=== PATIENT | male | born 1940 | race Hispanic/Latino ===

== ENCOUNTER 2016-08-29 19:41 | Inpatient (IN) | payer MEDICARE ==
--- NOTE | 2016-08-29 19:56 | ED PDOC ---
"Arrival/HPI - General Time Seen by Provider: 08/29/16 19:43 Historian: Patient, Family - History of Present Illness Narrative History of Present Illness (Text): 08/29/16 19:45 A 76 year old male, with past medical history including CVA with residual left sided weakness, skull fracture, and bypass surgery , who is brought into the emergency department by EMS for complaints of generalized weakness. Patients family who is at bedside states patient fell earlier today hitting his elbow on a dresser. Patient did not hit head or lose consciousness. Patient notes shortness of breath, which has worsening recently. Patient's family states he has vision changes, for which he is seeing an programs assistant. According to the family, the patient has not been eating or drinking fluids well. Patient and family deny nausea, vomiting, diarrhea, cough, bloody stools, or any other complaints at this time. Patient and family is not sure when patient last had a tetanus shot. PMD: Dr. Maldonado Time/Duration: > week (2 weeks) Symptom Onset: Gradual Activities at Onset: Rest Context: Home Past Medical History - Provider Review Nursing Documentation Reviewed: Yes Family/Social History - Physician Review Nursing Documentation Reviewed: Yes Family/Social History: No Known Family HX Allergies/Home Meds Allergies/Adverse Reactions: Allergies No Known Allergies Allergy (Unverified 08/29/16 19:59) Review of Systems - Physician Review All systems were reviewed & negative as marked: Yes - Review of Systems Constitutional: Fatigue. absent: Fevers Eyes: Vision Changes Respiratory: SOB Cardiovascular: absent: Chest Pain Gastrointestinal: Appetite Changes. absent: Abdominal Pain, Vomiting Neurological: absent: Dizziness Physical Exam Vital Signs Reviewed: Yes Vital Signs Temp Pulse Resp BP Pulse Ox 08/29/16 21:37 67 17 98 08/29/16 19:41 99.0 F 68 18 134/79 97 - Systems Exam Head: Present: Atraumatic, Normocephalic Pupils: Present: PERRL Extroacular Muscles: Present: EOMI Conjunctiva: Present: Normal Mouth: Present: Moist Mucous Membranes Neck: Present: Normal Range of Motion Respiratory/Chest: Present: Clear to Auscultation, Good Air Exchange. No: Respiratory Distress, Accessory Muscle Use Cardiovascular: Present: Regular Rate and Rhythm, Normal S1, S2. No: Murmurs Abdomen: Present: Normal Bowel Sounds. No: Tenderness, Distention, Peritoneal Signs Upper Extremity: Present: Normal ROM, Other (Superficial abrasion to right elbow ). No: Cyanosis, Edema Lower Extremity: No: Edema Neurological: Present: GCS=15, CN II-XII Intact, Speech Normal, Other (Chronic Left upper and lower extremity weakness) Skin: Present: Warm, Dry, Normal Color. No: Rashes Psychiatric: Present: Alert, Oriented x 3, Normal Insight, Normal Concentration Medical Decision Making ED Course and Treatment: 08/29/16 19:45 Impression: A 76 year old male with generalized weakness and a fall. Differential Diagnosis included but are not limited to: weakness r/o electrolyte imbalance; elbow abrasion r/o fracture; SOB r/o CHF exacerbation Plan: -- EKG -- Head CT -- Right elbow X-ray -- Chest X-Ray -- Labs -- Urinalysis -- Bacitracin, tDAP -- Reassess and disposition Progress Notes: EKG: Ordered, reviewed, and independently interpreted the EKG. Rate : 68 BPM Rhythm : NSR Interpretation : T wave inversion in I aVL and V6. Comparison : No previous EKG for comparison. 08/29/16 22:36 Elbow Xray - No fracture Right elbow abrasion cleaned with NS and bacitrain applied. CT Head IMPRESSION: Limited exam due to motion artifact No evidence of acute intracranial hemorrhage. No midline shift or hydrocephalus. Age-appropriate atrophy. Areas of diminished density in the periventricular and subcortical white matter bilaterally, nonspecific however likely represent chronic small vessel ischemic change. PEMA SCHAFFER | Preliminary Radiology Report COUNTY SUPERVISOR (QA) DISCREPANCY? If there is a discrepancy between the preliminary and final interpretation, please notify [facility] via [email or web address]. If you do not have access to our QA portal, call our QA team at [phone] CONFIDENTIALITY STATEMENT This report is intended only for the use of the referring physician, and only in accordance with law, If you received this in error, call [phone] Page 2 of 2 Thank you for allowing us to participate in the care of your patient. Dictated and Authenticated by: Greta Odell MD Patient's CT negative. BNP elevated. Lasix IV ordered. Case discussed with Dr. Maldonado who agrees for admission. 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 Will place on observation Telemetry. - Lab Interpretations Lab Results: 08/29/16 20:25 08/29/16 20:25 Lab Results 08/29/16 21:00: NT-Pro-B Natriuret Pep 54440 H 08/29/16 20:25: Sodium 136, Chloride 103, Potassium 4.8, Carbon Dioxide 22, Anion Gap 16, BUN 27 H, Creatinine 1.4, Est GFR ( Amer) 60, Est GFR (Non- Af Amer) 49, Random Glucose 158 H, Calcium 9.3, Phosphorus 3.6, Magnesium 1.8, Total Bilirubin 1.6 H, AST 23, ALT 32, Alkaline Phosphatase 154 H, Lactate Dehydrogenase 446, Total Creatine Kinase 45, Troponin I 0.05, Total Protein 7.2 , Albumin 3.8, Globulin 3.5, Albumin/Globulin Ratio 1.1 08/29/16 20:25: pO2 25 L, VBG pH 7.29 L, VBG pCO2 49.0, VBG HCO3 23.6, VBG Total CO2 25.1, VBG O2 Sat (Calc) 36.6 L, VBG Base Excess -3.6 L, VBG Potassium 5.2, Sodium 138.0, Chloride 101.0, Glucose 172 H, Lactate 2.5 H, FiO2 21.0, Venous Blood Potassium 5.2 08/29/16 20:25: PT 13.9 H, INR 1.29 H, APTT 31.5 H 08/29/16 20:25: WBC 7.8, RBC 5.21, Hgb 15.8, Hct 46.4, MCV 89.1, MCH 30.3, MCHC 34.1, RDW 17.9 H, Plt Count 187, MPV 11.0, Gran % 81.0 H, Lymph % (Auto) 9.5 L, Cameron % (Auto) 8.4 H, Eos % (Auto) 0.8 L, Baso % (Auto) 0.3, Gran # 6.35, Lymph # 0.7 L, Cameron # 0.7 H, Eos # 0.1, Baso # 0.02 I have reviewed the lab results: Yes Interpretation: Abnormal lab values - RAD Interpretation Radiology Orders: 08/29/16 19:59 CHEST PORTABLE [RAD] Stat 08/29/16 20:02 HEAD W/O CONTRAST [CT] Stat ELBOW RIGHT 3 VIEWS ROUTINE [RAD] Stat Phosphoric Acid Operator: ED Physician, Radiologist - Medication Orders Current Medication Orders: Furosemide (Lasix) 40 mg IVP STAT STA Stop: 08/29/16 22:35 Discontinued Medications Bacitracin (Bacitracin) 1 ea TOP ONCE ONE Stop: 08/29/16 20:02 Last Admin: 08/29/16 20:25 Dose: 1 ea Tetanus/Reduced Diphtheria/Acell Pertussis (Boostrix Vaccine Inj) 0.5 ml IM .ONCE ONE Stop: 08/29/16 20:02 Last Admin: 08/29/16 20:25 Dose: 0.5 ml - Scribe Statement The provider has reviewed the documentation as recorded by the Scribe Dolores joaquin under [place]a Rey Provider Scribe Attestation: All medical record entries made by the Scribe were at my direction and personally dictated by me. I have reviewed the chart and agree that the record accurately reflects my personal performance of the history, physical exam, medical decision making, and the department course for this patient. I have also personally directed, reviewed, and agree with the discharge instructions and disposition. Disposition/Present on Arrival - Present on Arrival Any Indicators Present on Arrival: No - Disposition Have Diagnosis and Disposition been Completed?: Yes Diagnosis: CHF (congestive heart failure), Elbow abrasion, Weakness Disposition: HOSPITALIZED Disposition Time: 22:39 Patient Plan: Observation Patient Problems: Current Active Problems Problem Status Onset CHF (congestive heart failure) Acute Elbow abrasion Acute Weakness Acute Condition: GUARDED Discharge Instructions (ExitCare): Heart Failure (ED), Weakness (ED) Referrals: Morgan Maldonado JD, MD [Primary Care Provider] - Follow up with primary"
[2016-08-29] MEDS ORDERED: TDAP Vaccine 0.5 mL Syr IM ONE (20:01)
[2016-08-29] MEDS ORDERED: Bacitracin 500 Units/gm Oint Foilpak UD TOP ONE (20:01)
[2016-08-29 20:37] LABS: BASO # 0.02 K/mm3 (0.0-2.0); BASO % 0.3 % (0.0-3.0); EOS # 0.1 (0.0-0.7); EOS % 0.8 % (1.5-5.0); GRAN # 6.35 (1.4-6.5); HEMOGLOBIN 15.8 gm/dL (14.0-18.0); LYMPH # 0.7 (1.2-3.4); LYMPH % 9.5 % (22.0-35.0); MEAN CELL VOLUME 89.1 fL (80.0-105.0); MEAN CORPUSCULAR HEMOGLOBIN 30.3 pg (25.0-35.0); MEAN CORPUSCULAR HGB CONC 34.1 g/dl (31.0-37.0); MONO # 0.7 (0.1-0.6); MONO % 8.4 % (1.0-6.0); PLATELET COUNT 187 10^3/uL (120.0-450.0); RBC 5.21 10^6/uL (3.5-6.1); RED CELL DISTRIBUTION WIDTH 17.9 % (11.5-14.5); WHITE BLOOD COUNT 7.8 10^3/ul (4.5-11.0)
[2016-08-29 20:43] LABS: VENOUS BLOOD GAS BASE EXCESS -3.6 mmol/L (0.0-2.0); VENOUS BLOOD GAS PO2 25 mm/Hg (30-55); VENOUS BLOOD PH 7.29 (7.32-7.43)
[2016-08-29 20:48] LABS: INR 1.29 (0.93-1.08); PARTIAL THROMBOPLASTIN TIME 31.5 Seconds (23.7-30.8); PROTHROMBIN TIME 13.9 Seconds (9.9-11.8)
[2016-08-29 21:19] LABS: ALB/GLOB RATIO 1.1 (1.1-1.8); ALBUMIN 3.8 g/dL (3.0-4.8); CALCIUM 9.3 mg/dL (8.4-10.5); MAGNESIUM 1.8 mg/dL (1.7-2.2)
[2016-08-29 21:29] LABS: TROPONIN I 0.05 ng/mL
[2016-08-29] MEDS ORDERED: Sodium Chloride 0.9% 500 ML IV STA (21:31)
[2016-08-29 22:50] LABS: PH,URINE 5.5 (4.7-8.0); URINE BILIRUBIN NEGATIVE (NEGATIVE); URINE BLOOD NEGATIVE (NEGATIVE); URINE GLUCOSE (UA) NEGATIVE (NEGATIVE); URINE LEUKOCYTE ESTERASE NEGATIVE Leu/uL (NEGATIVE); URINE NITRATE NEGATIVE (NEGATIVE); URINE PROTEIN 30 mg/dL (<30 mg/dL)
[2016-08-29 22:51] LABS: URINE APPEARANCE CLEAR (CLEAR); URINE COLOR YELLOW (YELLOW)
[2016-08-29 22:54] LABS: URINE BACTERIA MANY (NEG); URINE EPITHELIAL CELLS 0 - 2 /hpf (0-5); URINE RBC 0 - 2 /hpf (0-2)
[2016-08-29 22:55] LABS: URINE AMORPHOUS SEDIMENT FEW; URINE HYALINE CAST 0 - 2 /hpf
[2016-08-30 00:15] LABS: VENOUS BLOOD GAS BASE EXCESS -5.5 mmol/L (0.0-2.0); VENOUS BLOOD GAS PO2 44 mm/Hg (30-55); VENOUS BLOOD PH 7.35 (7.32-7.43)
--- NOTE | 2016-08-30 07:27 | CT ---
PROCEDURE: CT HEAD WITHOUT CONTRAST. HISTORY: possible head injury, body weakness COMPARISON: None available. TECHNIQUE: Axial computed tomography images were obtained through the head/brain without intravenous contrast. Radiation dose: Total exam DLP = 1064 mGy-cm. This CT exam was performed using one or more of the following dose reduction techniques: Automated exposure control, adjustment of the mA and/or kV according to patient size, and/or use of iterative reconstruction technique. FINDINGS: HEMORRHAGE: No intracranial hemorrhage. BRAIN: No mass effect or edema. Old left occipital ibfarct. Atrophy. VENTRICLES: Unremarkable. No hydrocephalus. CALVARIUM: Unremarkable. PARANASAL SINUSES: Unremarkable as visualized. No significant inflammatory changes. MASTOID AIR CELLS: Unremarkable as visualized. No inflammatory changes. OTHER FINDINGS: None. IMPRESSION: No bleed..
[2016-08-30] MEDS ORDERED: Potassium Chloride 20 mEq ER Tab PO ONE (12:41)
[2016-08-30] MEDS: Potassium Chloride 20 mEq ER Tab PO SCH (12:42)
--- NOTE | 2016-08-30 12:49 | RAD ---
HISTORY: Sepsis Patient COMPARISON: No prior. FINDINGS: LUNGS: Linear scar/ atelectasis mid left lung. No pulmonary infiltrate. PLEURA: No significant pleural effusion identified, no pneumothorax apparent. CARDIOVASCULAR: Mild cardiomegaly. Sternotomy wires noted. Likely prior CABG. OSSEOUS STRUCTURES: No significant abnormalities. VISUALIZED UPPER ABDOMEN: Normal. OTHER FINDINGS: None. IMPRESSION: No active disease.
--- NOTE | 2016-08-30 12:51 | RAD ---
PROCEDURE: Radiographs of the right elbow. HISTORY: fall r/o fx COMPARISON: No prior. FINDINGS: BONES: Normal. No fracture. JOINTS: Normal. No osteoarthritis. SOFT TISSUES: Normal. JOINT EFFUSION: None. OTHER FINDINGS: None. IMPRESSION: Unremarkable radiographs of the right elbow.
--- NOTE | 2016-08-30 14:10 | HP ---
HISTORY OF PRESENT ILLNESS: The patient is a 76-year-old male admitted to the telemetry unit through the Emergency Department on 08/29/2016 after having a fall at home sustaining an abrasion to his arm s. There was no loss of consciousness, no seizure, no head trauma. CT scan of the head was negative . The patient reported increased shortness of breath and generalized weakness and is admitted for fu rther observation and management. PAST MEDICAL HISTORY: Includes coronary artery disease status post coronary artery bypass x 3 in the remote past. 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 PAST SURGICAL HISTORY: Includes BPH. CURRENT MEDICATIONS: Include Lasix 20 mg daily and K-Dur 10 mEq daily as well as metformin 500 mg tw ice daily. ALLERGIES: The patient has no known drug allergies. SOCIAL HISTORY: No history of tobacco or alcohol use. FAMILY HISTORY: Noncontributory. REVIEW OF SYSTEMS: The patient denies chest pain, reports some dyspnea on exertion, paroxysmal noctu rnal dyspnea and orthopnea with swelling of the legs. There is no jaundice, no nausea, no vomiting, no diaphoresis, no melena, no bright red blood per rectum. PHYSICAL EXAMINATION: GENERAL: The patient is a slightly cachectic male in no acute distress. VITAL SIGNS: Blood pressure 124/95, temperature 97.4, pulse 60, respiratory rate 20. HEENT: Head is normocephalic, atraumatic. Pupils equal, round, reactive to light. Extraocular move ments intact. NECK: Supple, with no thyromegaly, no carotid bruit, no adenopathy. LUNGS: Show a few bibasilar crackles. HEART: Regular rate and rhythm, grade II-III/ systolic murmur. ABDOMEN: Soft, nontender, bowel sounds are normoactive. EXTREMITIES: Show 2+ pitting edema to the calves bilaterally. NEUROLOGIC: The patient is awake and oriented x 3 without focal sensory or motor deficits. Gait is slightly ataxic. SKIN: Warm and dry. LABORATORY DATA: WBC 7.8, hemoglobin 15.8, hematocrit 46.4, sodium 136, potassium 4.8, chloride 109, CO2 of 22, BUN 27, creatinine 1.4, glucose 158. Chest x-ray shows no active disease. BNP is marked ly elevated at 35,800. Troponin is 0.05. IMPRESSION: 1. Congestive heart failure. 2. Coronary artery disease status post coronary artery bypass graft x 3. 3. Cerebrovascular accident with occipital infarct, gait ataxia and recurrent falls. 4. Type 2 diabetes mellitus, poorly controlled. 5. Degenerative joint disease. 6. Benign prostatic hypertrophy. PLAN: The patient is admitted to the telemetry unit. Will start IV Lasix. Obtain cardiology consul tation with Dr. Malave/Nahun. Regular insulin coverage low dose protocol. Physical therapy evaluatio n and social work for discharge planning. Morgan Maldonado JD, MD cc: [phone] TT: 08/30/2016 14:09:47 mn
--- NOTE | 2016-08-30 15:51 | CON ---
DATE: 08/30/2016 REASON FOR CONSULTATION: Coronary artery disease status post CABG, rule out CHF. BRIEF CLINICAL HISTORY: This is a 76-year-old male with a past medical history significant for coron margot artery bypass surgery in 2001, three vessels bypass, admitted here because after a fall. Denies any chest pain, but complained of shortness of breath recently. PAST HISTORY: Significant for diabetes, hypertension, hyperlipidemia, coronary artery disease, statu s post CABG x 3 in 2001. PAST SURGICAL HISTORY: History of BPH, history of coronary artery bypass in 2001, three vessels bypa ss -- TAYLOR to LAD, saphenous graft to RCA and left radial to obtuse marginal 1 branch of the circumfl ex. CURRENT MEDICATIONS: The patient at home was taking Lasix 20 mg, K-Dur 10 mEq, metformin 500 mg twic e daily. ALLERGIES: No known drug allergy. SOCIAL HISTORY: No history of tobacco abuse, alcohol abuse. REVIEW OF SYSTEMS: As per HPI. PHYSICAL EXAMINATION: As follows: VITAL SIGNS: Temperature afebrile, heart rate 60, blood pressure 124/95. HEENT: PERRLA, intact. NECK: Supple. No carotid bruits. No thyromegaly. CHEST: Clear to auscultation. HEART: S1, S2 regular. ABDOMEN: Soft. EXTREMITIES: Clubbing and cyanosis negative. BLOOD WORKUP: As follows: WBC ____, hemoglobin ____, hematocrit of 46.4, platelet count 187. Chemi stry shows sodium 130, potassium ____, chloride of 103, carbon dioxide 22, anion gap of 16, BUN 26, c reatinine 1.4. BNP 35,800. IMPRESSION: Acute decompensated congestive heart failure, ____, congestive heart failure, probably s econdary to ischemic cardiomyopathy, history of fall, coronary artery disease, coronary artery bypass graft in 2001. Lost to followup, very poor compliance. The patient's x-ray consistent with congest chidi heart failure. Diabetes, hypertension, hyperlipidemia. RECOMMENDATION: Start Lasix q.12. Continue rest of the medication baseline. ____ DVT prophylaxis. Echo to assess LV function. Further recommendation after the echo. We will follow with you. Thank you, Dr. Maldonado, for providing the opportunity in taking care of the patient. EKG showed normal sinus, inferior wall IL, poor R-wave progression, positive anterior wall IL. We wi ll follow with you. Moise Garnica MD cc: [id number] TT: 08/30/2016 15:45:00 Confirmation # [id number] Dictation # [id number]
[2016-08-30] MEDS: Enoxaparin 30 mg Syringe SC SCH (17:23)
[2016-08-30] MEDS: Insulin Reg-LOW-Coverage SC SCH ×2 (17:24→22:05)
--- NOTE | 2016-08-30 18:11 | CARD ---
APPROVED REPORT EKG Measurement Heart [id number] NM [id number] [id number] <Conclusion> Normal sinus rhythm Inferior infarct, age undetermined Anterior infarct, age undetermined ST & T wave abnormality, consider lateral ischemia Abnormal ECG
[2016-08-31 06:30] LABS: BASO # 0.02 K/mm3 (0.0-2.0); BASO % 0.3 % (0.0-3.0); EOS # 0.1 (0.0-0.7); EOS % 1.4 % (1.5-5.0); GRAN # 4.87 (1.4-6.5); GRAN % 76.5 % (50.0-68.0); HEMOGLOBIN 15.5 gm/dL (14.0-18.0); LYMPH # 0.9 (1.2-3.4); LYMPH % 13.3 % (22.0-35.0); MEAN CELL VOLUME 89.1 fL (80.0-105.0); MEAN CORPUSCULAR HEMOGLOBIN 30.2 pg (25.0-35.0); MEAN CORPUSCULAR HGB CONC 33.8 g/dl (31.0-37.0); MEAN PLATELET VOLUME 10.8 fl (7.0-11.0); MONO # 0.5 (0.1-0.6); MONO % 8.5 % (1.0-6.0); PLATELET COUNT 175 10^3/uL (120.0-450.0); RBC 5.14 10^6/uL (3.5-6.1); RED CELL DISTRIBUTION WIDTH 17.6 % (11.5-14.5); WHITE BLOOD COUNT 6.4 10^3/ul (4.5-11.0)
[2016-08-31 06:37] LABS: ALBUMIN 3.4 g/dL (3.0-4.8); CALCIUM 9.2 mg/dL (8.4-10.5); MAGNESIUM 1.6 mg/dL (1.7-2.2)
--- NOTE | 2016-08-31 06:37 | CP.PCM.PN ---
Subjective - Date & Time of Evaluation Date of Evaluation: 08/31/16 Time of Evaluation: 06:34 - Subjective Subjective: S:Patient was seen because he was not able to pass urine. He has been passing very little urine at a time. Bladder scan showed accumulation of 430 CC urine. Nurse had requesed if she could straight catheterize. Patient requested to have catheterization when I spoke to him . Has no other complaints. Medical record was reviewed. O: Last Vital Signs 3 Temp 97.4 F L 08/31/16 06:00 Pulse 59 L 08/31/16 06:00 Resp 20 08/31/16 06:00 BP 107/62 08/31/16 06:00 Pulse Ox 97 08/31/16 06:00 ABD: Mild suprapubic discomfort and fullness positive. A: Urinary retention. P: Straight catheterize. Objective - Vital Signs/Intake and Output Vital Signs (last 24 hours): Temp Pulse Resp BP Pulse Ox 97.4 F L 59 L 20 107/62 97 08/31/16 06:00 08/31/16 06:00 08/31/16 06:00 08/31/16 06:00 08/31/16 06:00 Intake and Output: 08/30/16 08/31/16 18:59 06:59 Intake Total 840 Output Total 1600 Balance 840 -1600 - Medications Medications: Current Medications Atorvastatin Calcium (Lipitor) 20 mg PO DIN [facility] Last Admin: 08/30/16 17:23 Dose: 20 mg Carvedilol (Coreg) 3.125 mg PO BID [facility] Last Admin: 08/30/16 17:22 Dose: 3.125 mg Clopidogrel Bisulfate (Plavix) 75 mg PO DAILY [facility] Last Admin: 08/30/16 17:23 Dose: 75 mg Enoxaparin Sodium (Lovenox) 30 mg SC DAILY [facility] PRN Reason: Protocol Last Admin: 08/30/16 17:23 Dose: 30 mg Furosemide (Lasix) 40 mg IV 0800,1400 [facility] Ibuprofen (Motrin Tab) 400 mg PO Q6H PRN PRN Reason: Pain, Mild (1-3) Insulin Human Regular (Humulin R Low) 0 units SC ACHS [facility] PRN Reason: Protocol Last Admin: 08/30/16 22:05 Dose: Not Given Metformin HCl (Glucophage) 500 mg PO BID [facility] Last Admin: 08/30/16 17:23 Dose: 500 mg Ondansetron HCl (Zofran Inj) 4 mg IVP Q4H PRN PRN Reason: Nausea/Vomiting Potassium Chloride (K-Dur 20 Meq Er Tab) 20 meq PO BRK MAURICIO Last Admin: 08/30/16 12:42 Dose: 20 meq - Labs Labs: PT 13.9 Seconds (9.9-11.8) H 08/29/16 20:25 INR 1.29 (0.93-1.08) H 08/29/16 20:25 APTT 31.5 Seconds (23.7-30.8) H 08/29/16 20:25
[2016-08-31] MEDS: Insulin Reg-LOW-Coverage SC SCH ×4 (08:00→22:25)
[2016-08-31] MEDS: Potassium Chloride 20 mEq ER Tab PO SCH (09:00)
[2016-08-31] MEDS: Enoxaparin 30 mg Syringe SC SCH (10:51)
--- NOTE | 2016-08-31 11:59 | PN ---
DATE: 08/31/2016 SUBJECTIVE: The patient is lying in bed in no acute distress. He denies chest pain or shortness of breath. OBJECTIVE: VITAL SIGNS: Blood pressure 123/71, pulse 61, temperature 97.4, respiratory rate 20. LUNGS: Show a few bibasilar crackles. HEART: Regular rate and rhythm. ABDOMEN: Soft, nontender. Bowel sounds are normoactive. EXTREMITIES: Show 1+ to 2+ bipedal edema which has decreased from previous. NEUROLOGIC: The patient is awake and oriented x 3 without focal sensory or motor deficits. SKIN: Warm and dry. LABORATORY DATA: WBC 6.4, hemoglobin 15.5, hematocrit 45.8. Sodium 138, potassium 4.3, chloride 102 , CO2 25, BUN 27, creatinine 1.4, glucose 93. BNP remains elevated at 38,200. IMPRESSION: 1. Congestive heart failure. 2. Coronary artery disease, status post coronary artery bypass graft x 3. 3. Cerebrovascular accident with occipital infarct, gait ataxia and recurrent falls. 4. Type 2 diabetes mellitus, poorly controlled. 5. Degenerative joint disease. 6. Benign prostatic hypertrophy. PLAN: Continue IV Lasix. Continue cardiology followup with Dr. Malave/Dr. Garnica. Echo is pending. Physical therapy and social work for discharge planning. Continue insulin coverage. Morgan Maldonado JD, MD cc: [id number] TT: 08/31/2016 11:58:46 Confirmation # [id number] Dictation # [id number] tn
[2016-08-31] MEDS ORDERED: Magnesium Sulfate 2 GM in Sodium Chloride 0.9% 100 ML IVPB ONE (12:08)
[2016-08-31 13:01] LABS: HDL CHOLESTEROL 29 mg/dL (29-60)
--- NOTE | 2016-08-31 13:05 | PN ---
DATE: 08/31/2016 REASON FOR CONSULTATION: Coronary artery disease, status post CABG, rule out CHF. BRIEF CLINICAL HISTORY: A 76-year-old male with a past medical history significant for coronary andrew ry disease status post CABG in 2001, 3 vessels CABG, admitted after a fall. Denies any chest pain. The patient last night was confused, climbing side rails, on 1:1 observation. PHYSICAL EXAMINATION: GENERAL: Awake and alert, but is confused. VITAL SIGNS: Temperature afebrile, heart rate 59, blood pressure 107/62. HEENT: PERRLA. Extraocular muscles intact. NECK: Supple. No carotid bruits. No thyromegaly. CHEST: Clear to auscultation. HEART: S1, S2 regular. ABDOMEN: Soft. EXTREMITIES: Clubbing and cyanosis negative. LABORATORY DATA: WBC 6.4, hemoglobin 15.5, hematocrit 45.8, platelet count 175. Chemistry shows sod ium 130, potassium 4.3, chloride 102, carbon dioxide 25, anion gap of 15, BUN 23, creatinine 1.4. BN P 38,200. TSH 2.4. Total protein 6.4, albumin 3.4, albumin/globulin ratio 1. IMPRESSION: History of coronary artery disease, coronary artery bypass graft x 3 in 2001, left inter nal mammary artery to left anterior descending, saphenous venous graft to the right coronary artery, left radial to obtuse marginal 1. Incidental finding was a bicuspid aortic valve with no significant aortic stenosis, aortic regurgitation noted in 2001 in operative report and suggested to follow up. The patient lost followup. History of old occipital infarct by CT scan, type 2 diabetes, hypertensi on, hyperlipidemia, gait disturbance, degenerative joint disease, benign prostatic hypertrophy, coron margot artery disease, coronary artery bypass graft as above, admitted with decompensated congestive he art failure, altered mental status, confused. Chest x-ray is consistent with congestive heart failur e. Diabetes, hypertension, hyperlipidemia, poor compliance with the medication. RECOMMENDATION: Continue DVT prophylaxis. Continue gentle diuretics. Echo to assess LV function. Further recommendation after the echo. Monitor heart rate, continue Coreg, low dose beta artur. C ontinue Lasix. If blood pressure will tolerate, we will add low dose of JN inhibitors. Monitor eris al function closely. Further recommendation after the echo. Thank you, Dr. Maldonado, for providing us the opportunity in taking care of the patient. Once we start adding the JN inhibitor, we will monitor renal function closely. We will repeat the l ab in the morning. Moise Garnica MD cc: [id number] TT: 08/31/2016 13:05:14 Confirmation # [id number] Dictation # [id number] tn
[2016-08-31 13:12] LABS: LDL CHOLESTEROL 93 mg/dL (0-129)
[2016-08-31] MEDS: Magnesium Oxide 400 mg Tab UD PO SCH (18:45)
--- NOTE | 2016-08-31 21:21 | CP.PCM.PN ---
Subjective - Date & Time of Evaluation Date of Evaluation: 08/31/16 Time of Evaluation: 21:18 - Subjective Subjective: Fsbs 188 mg %. Pulse ox-99% on 2L/min. BP 101/68 HR59/min RR 20/min Temp:98*F It was requested to order 1:1 watch for this patient who almost fell yesterday night, trying to get out of bed. I tried to speak to him.He is disoriented.Many times he repeats the same questions I ask him. This 76 year old white male was admitted with history of fall. Has PMH of CABG in 2001,DM II HTN,CHF, CVA with occipital infarct, HLD, BPH, DJD. Objective - Vital Signs/Intake and Output Vital Signs (last 24 hours): Temp Pulse Resp BP Pulse Ox 97.8 F 72 18 101/66 97 08/31/16 17:38 08/31/16 18:46 08/31/16 17:38 08/31/16 18:46 08/31/16 06:00 Intake and Output: 08/31/16 09/01/16 18:59 06:59 Intake Total 360 Output Total 675 Balance -315 - Medications Medications: Current Medications Atorvastatin Calcium (Lipitor) 20 mg PO DIN [facility] Last Admin: 08/31/16 18:46 Dose: 20 mg Carvedilol (Coreg) 3.125 mg PO BID [facility] Last Admin: 08/31/16 18:46 Dose: 3.125 mg Clopidogrel Bisulfate (Plavix) 75 mg PO DAILY [facility] Last Admin: 08/31/16 10:50 Dose: 75 mg Enoxaparin Sodium (Lovenox) 30 mg SC DAILY [facility] PRN Reason: Protocol Last Admin: 08/31/16 10:51 Dose: 30 mg Furosemide (Lasix) 40 mg IV 0800,1400 [facility] Last Admin: 08/31/16 13:56 Dose: 40 mg Insulin Human Regular (Humulin R Low) 0 units SC ACHS [facility] PRN Reason: Protocol Last Admin: 08/31/16 17:00 Dose: Not Given Magnesium Oxide (Mag-Ox) 400 mg PO BID [facility] Stop: 09/01/16 23:59 Last Admin: 08/31/16 18:45 Dose: 400 mg Metformin HCl (Glucophage) 500 mg PO BID [facility] Last Admin: 08/31/16 18:46 Dose: 500 mg Ondansetron HCl (Zofran Inj) 4 mg IVP Q4H PRN PRN Reason: Nausea/Vomiting Potassium Chloride (K-Dur 20 Meq Er Tab) 20 meq PO BRK [facility] Last Admin: 08/31/16 09:00 Dose: 20 meq Ramipril (Altace) 1.25 mg PO DAILY [facility] - Labs Labs: 08/31/16 06:25 08/31/16 06:13 PT 13.9 Seconds (9.9-11.8) H 08/29/16 20:25 INR 1.29 (0.93-1.08) H 08/29/16 20:25 APTT 31.5 Seconds (23.7-30.8) H 08/29/16 20:25 - Constitutional Appears: Well, No Acute Distress - Head Exam Head Exam: ATRAUMATIC, NORMAL INSPECTION, NORMOCEPHALIC - Eye Exam Eye Exam: Normal appearance - ENT Exam ENT Exam: Normal External Ear Exam - Neck Exam Neck Exam: Normal Inspection - Respiratory Exam Respiratory Exam: NORMAL BREATHING PATTERN - Cardiovascular Exam Cardiovascular Exam: absent: JVD - GI/Abdominal Exam GI & Abdominal Exam: absent: Distended - Rectal Exam Rectal Exam: Deferred - Extremities Exam Extremities Exam: Normal Inspection - Back Exam Back Exam: NORMAL INSPECTION - Neurological Exam Neurological Exam: Altered Additional comments: States that he in in hospital, this year is 1906, month is May-June. When I ask him any questions he repeats the question and asks me same. - Psychiatric Exam Psychiatric exam: Agitated - Skin Skin Exam: Normal Color Assessment and Plan - Assessment and Plan (Free Text) Assessment: Agitaiton-Intermittent. DM II. CHF. CABG in past. DJD. BPH. HTN. Hx CVA. Plan: 1:1 observation,Sitter. Continue present management.
[2016-09-01] MEDS: Insulin Reg-LOW-Coverage SC SCH ×4 (07:49→21:31)
[2016-09-01] MEDS: Potassium Chloride 20 mEq ER Tab PO SCH (07:54)
[2016-09-01 08:11] LABS: BLOOD UREA NITROGEN 27 mg/dL (7-21); CALCIUM 8.9 mg/dL (8.4-10.5); GFR AFRICAN-AMERICAN > 60; GFR NON-AFRICAN AMERICAN 54; MAGNESIUM 1.8 mg/dL (1.7-2.2)
[2016-09-01] MEDS: Enoxaparin 30 mg Syringe SC SCH (09:38)
[2016-09-01] MEDS: Magnesium Oxide 400 mg Tab UD PO SCH ×2 (09:38→17:20)
--- NOTE | 2016-09-01 11:40 | PN ---
DATE: 09/01/2016 SUBJECTIVE: The patient is lying in bed, in no acute distress. He denies chest pain or shortness of breath. OBJECTIVE: VITAL SIGNS: Blood pressure 104/57, pulse 54, temperature 97.8, respiratory rate 22. LUNGS: Clear. HEART: Regular rate and rhythm. ABDOMEN: Soft, nontender, bowel sounds are normoactive. EXTREMITIES: Without cyanosis, clubbing, or edema. NEUROLOGIC: The patient is awake and oriented x 3 without focal, sensory or motor deficits. SKIN: Warm and dry. IMPRESSION: 1. Congestive heart failure. 2. Coronary artery disease, status post coronary artery bypass graft x 3. 3. Cerebrovascular accident, history of occipital infarct with gait ataxia and recurrent falls. 4. Type 2 diabetes mellitus, poorly controlled. 5. Degenerative joint disease. 6. Benign prostatic hypertrophy. 7. 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 PLAN: Continue cardiology followup with Dr. Malave/Dr. Garnica. Physical therapy evaluation and social work for discharge planning. Continue insulin coverage. Morgan Maldonado JD, MD cc: [id number] TT: 09/01/2016 11:39:42 Confirmation # [id number] Dictation # [id number] en
--- NOTE | 2016-09-01 13:59 | PN ---
DATE: 09/01/2016 REASON FOR CONSULTATION AND FOLLOWUP: Coronary artery disease, status post CABG, rule out CHF. SUBJECTIVE: The patient denies any chest pain, shortness of breath or palpitations. The patient is 1:1 observation. PHYSICAL EXAMINATION: VITAL SIGNS: Temperature afebrile, heart rate ____, blood pressure ____/64. HEENT: PERRLA. Extraocular muscles intact. NECK: Supple. No carotid bruits. No thyromegaly. CHEST: Clear to auscultation. HEART: S1, S2 regular. ABDOMEN: Soft. EXTREMITIES: Clubbing and cyanosis negative. LABORATORY DATA: Blood workup as follows: WBC 6.4, hemoglobin , hematocrit ____, platelet coun t 175. Chemistry shows sodium 137, potassium 3.9, chloride 99, carbon dioxide 29, anion gap of 13, B UN 27, creatinine 1.3. IMPRESSION: Decompensated congestive heart failure, coronary artery disease, coronary artery bypass graft in 2001, 3 vessels, left internal mammary artery to left anterior descending, saphenous vein gr aft to right coronary artery and left radial to obtuse marginal 1. At that time, incidental finding was bicuspid aortic valve without significant aortic stenosis or aortic regurgitation, gait disturban ce, diabetes, hypertension, hyperlipidemia, possible ischemic cardiomyopathy, altered mental status, 1:1 observation, diabetes, hyperlipidemia, poor compliance with medication. RECOMMENDATION: Continue Coreg. Continue ramipril. Continue Lasix, DVT prophylaxis. Lasix was pak ged to p.o. by Dr. Maldonado today. Echo to assess LV function. Monitor heart rate. We will follow marie mariano. Thank you, Dr. Maldonado, for providing the opportunity in taking care of the patient. Will follow with you. Moise Garnica MD cc: [id number] TT: 09/01/2016 13:58:35 Confirmation # [id number] Dictation # [id number]
[2016-09-02 06:58] LABS: ALBUMIN 3.2 g/dL (3.0-4.8); ALT/SGPT 28 U/L (7-56); AST/SGOT 20 U/L (15-59); BLOOD UREA NITROGEN 28 mg/dL (7-21); GFR AFRICAN-AMERICAN > 60; GFR NON-AFRICAN AMERICAN 59
[2016-09-02 07:06] LABS: BASO # 0.01 K/mm3 (0.0-2.0); BASO % 0.1 % (0.0-3.0); EOS # 0.1 (0.0-0.7); EOS % 1.5 % (1.5-5.0); GRAN # 5.29 (1.4-6.5); GRAN % 77.7 % (50.0-68.0); HEMOGLOBIN 15.2 gm/dL (14.0-18.0); LYMPH # 0.7 (1.2-3.4); LYMPH % 10.7 % (22.0-35.0); MEAN CELL VOLUME 88.8 fL (80.0-105.0); MEAN CORPUSCULAR HEMOGLOBIN 29.5 pg (25.0-35.0); MEAN CORPUSCULAR HGB CONC 33.2 g/dl (31.0-37.0); MEAN PLATELET VOLUME 10.8 fl (7.0-11.0); MONO # 0.7 (0.1-0.6); PLATELET COUNT 179 10^3/uL (120.0-450.0); RBC 5.16 10^6/uL (3.5-6.1); RED CELL DISTRIBUTION WIDTH 17.6 % (11.5-14.5); WHITE BLOOD COUNT 6.8 10^3/ul (4.5-11.0)
[2016-09-02] MEDS: Insulin Reg-LOW-Coverage SC SCH ×4 (07:45→22:25)
[2016-09-02] MEDS: Potassium Chloride 20 mEq ER Tab PO SCH (08:01)
[2016-09-02] MEDS: Enoxaparin 30 mg Syringe SC SCH (09:21)
--- NOTE | 2016-09-02 09:33 | CP.PCM.PCO ---
Physician Communication Note - Physician Communication Note Physician Communication Note: See attached section for [facility] response. Summary - Summary of Event Summary of Event: Yeimy Stone, called at 0902, 09/02/16 Witnessed fall out of bed as per Nursing, patient attempted to stand from side of bed, ending up sliding down to ground. Nursing unable to reach bedside before event occurred. No head trauma. [facility] called. Helped onto commode by Nursing prior to arrival due to need to move bowels. Vitals: HR 58, BP 117/165, SaO2 95%, Fingerstick Glucose 135 Physical Exam: General: awake, alert, no acute distress, sitting on commode, talkative and joking HEENT: NC/AT, no echymosis/lacerations/bleeding, EOMI (tracking staff throughout room), turning head to track staff without obvious discomfort or Pulm: CTAB, no wheezses/rales/ronchi, no tachypnea, no andres cyanosis Cardio: RRR, +S1/S2 GI: non-tender, soft, normal bowel sounds, actively using bedside commode to defecate MSK: no head/back/posterior echymosis, equal muscle tone bilaterally, no gross deformities indicative of traumatic fracture on general survey Neuro: moving head and upper extremities spontaneously, no gross asymmetry of facial muscle or UE movement noted, normal speech without slurring Psych: AAOx3, making jokes, as per nursing regularly removes all clothing in room Nursing reports 1:1 that was d/c'ed yesterday as patient was less confused/ agitated. Patient has been instructed not to stand without assistance, but has attempted to do so anyway. S/p dialysis this AM as per charting. Does not appear confused (AAOx3), but is not answering when asked why he tried to stand up without assistance. No head trauma and no andres echymotic areas posteriorly on exam, no complaint of pain by patient, so no scans indicated at this time. 1 :1 resumed, continue high fall risk protocol. Called PMD's office (Dr. Maldonado) and notified of fall. Patient seen, observed, and discussed with House Physician, Dr. Keya Chisholm.
--- NOTE | 2016-09-02 11:10 | PN ---
DATE: 09/02/2016 SUBJECTIVE: The patient is lying in bed in no acute distress. He had a fall this morning with no ap parent injury. He denies chest pain or shortness of breath. OBJECTIVE: VITAL SIGNS: Blood pressure 117/65, pulse 58, temperature 97.8, respiratory rate 20. LUNGS: Clear. HEART: Regular rate and rhythm. ABDOMEN: Soft, nontender, bowel sounds are normoactive. EXTREMITIES: Without cyanosis, clubbing, or edema. NEUROLOGIC: The patient is awake and oriented x 3 without focal sensory or motor deficits. SKIN: Warm and dry. LABORATORY DATA: WBC 6.8, hemoglobin 15.2, hematocrit 45.8. Sodium 137, potassium 4.0, chloride 100 , CO2 27, BUN 28, creatinine 1.2, glucose 104. IMPRESSION: 1. Congestive heart failure. 2. Coronary artery disease status post coronary artery bypass graft x 3. 3. Cerebrovascular accident. History of occipital infarct with gait ataxia and recurrent falls. 4. Type 2 diabetes mellitus, poorly controlled. 5. Degenerative joint disease. 6. Benign prostatic hypertrophy. 7. Probable dementia, mild to moderate, mixed versus Alzheimer disease. PLAN: Continue cardiology followup with Dr. Malave/Nahun. Physical therapy evaluation and social wor k for discharge planning. The patient will probably require 24-hour supervision and [facility]. Continue insulin coverage and glucose monitoring. Morgan Maldonado JD, MD cc: [id number] TT: 09/02/2016 11:09:53 Confirmation # [id number] Dictation # [id number] mn
--- NOTE | 2016-09-02 11:33 | PN ---
DATE: 09/02/2016 REASON FOR CONSULTATION AND FOLLOWUP: Coronary artery disease, status post CABG with shortness of br eath and altered mental status. SUBJECTIVE: The patient denies any chest pain, shortness of breath, any palpitation. The patient wa s 1:1. OBJECTIVE: PHYSICAL EXAMINATION: VITAL SIGNS: Temperature afebrile, heart rate 58, blood pressure 117/65. HEENT: PERRLA. Extraocular muscles intact. NECK: Supple. No carotid bruits. No thyromegaly. CHEST: Clear to auscultation. HEART: S1, S2 regular. ABDOMEN: Soft. EXTREMITIES: Clubbing and cyanosis negative. BLOOD WORKUP: WBC is 6.8, hemoglobin 15.2, hematocrit 45.8, platelet count 179. Chemistry shows sod ium 137, potassium 4, chloride 100, carbon dioxide 27, anion gap of 14, BUN 26, creatinine 1.2. IMPRESSION: This is a 76-year-old male with past medical history significant for open heart surgery, 3-vessel bypass in 2001. Op report shows left internal mammary artery to left anterior descending, left anterior artery to left anterior descending, saphenous vein graft to the right coronary artery, left radial artery to obtuse marginal-1. At that time, incidental finding was a bicuspid aortic valv e without significant aortic stenosis regurgitation. So valve was not repaired or replaced, but with the plan to follow up monitor. The patient lost followup. The patient admitted here with gait inst ability, altered mental status, shortness of breath, decompensated congestive heart failure, was 1:1 observation, history of diabetes, hypertension, hyperlipidemia, poor compliance with the medication. RECOMMENDATION: Continue Coreg, continue ramipril, continue Lasix, continue DVT prophylaxis. Lasix was changed to p.o. Awaiting for the echo. Possible discharge planning. Thank you, Dr. Maldonado, for providing the opportunity in taking care of the patient. We will review th e echo for aortic valve progression disease, history of Alzheimer's disease. Thank you, Dr. Maldonado, for providing the opportunity in taking care of the patient. Moise Garnica MD cc:Morgan Maldonado JD, MD [phone] TT: 09/02/2016 11:33:11 Confirmation # [id number] Dictation # [id number] jn
[2016-09-03] MEDS: Insulin Reg-LOW-Coverage SC SCH ×3 (08:10→16:31)
[2016-09-03] MEDS: Potassium Chloride 20 mEq ER Tab PO SCH (09:22)
[2016-09-03] MEDS: Enoxaparin 30 mg Syringe SC SCH (09:24)
--- NOTE | 2016-09-03 11:28 | IP.NPCORE ---
Heart Failure Core Measure - Heart Failure Left Ventricular Function to be assessed after discharge: Yes JN Inhibitor Prescribed: Yes Beta-Sung Prescribed: Carvedilol Angiotensin II Receptor Sung Prescribed: No Contraindication/Reason for not providing: hypotension AnticoagulationTherapy for Atrial Fibrillation/Atrialflutter: No Contraindication/Reason for not providing: no afib, pt with chronic hemorrhagic infarct Aldosterone Antagonist Prescribed: Yes Contraindication/Reason for not providing: creatinine levels Hydralazine Nitrate Prescribed: No Contraindication/Reason for not providing: RI Implantable Cardioverter Defibrillator Therapy: No Contraindication/Reason for not providing: n/a - Follow up Will be discharged to: [facility] Follow Up Date (must be within 7 days from discharge): 09/10/16 (recommended ) Follow Up Time: 09:00
[2016-09-03] MEDS ORDERED: Albuterol-Ipratrop 3 mg / 0.5 (3 ml) UD IH PRN (12:21)
--- NOTE | 2016-09-03 17:54 | CP.PCM.CON ---
History of Present Illness - History of Present Illness History of Present Illness: NEURO CONSULT NOTE: 09/03/16 CHIEF COMPLAINT: EVALUATE FOR DEMENTIA HPI: 76 YEAR OLD MAN WITH H/O HTN, HLD, CAD S/P STENT AND CABG, ADMITTED FOR GENERALIZED WEAKNESS, GAIT DYSFUNCTION, AND DECOMPENSATED CHF. CALLED TO EVALUATE FOR DEMENTIA. HE IS ALERT AND ORIENTED TO PERSON AND PLACE BUT HAS POOR RECALL, POOR JUDGEMENT AND LOOSE ASSOCIATIONS OF WORDS. HIS THOUGHTS ARE DISORGANIZED. HE HAS BEEN NONCOMPLAINT WITH MEDICATIONS FOR HIS GENERAL MEDICAL CONDITIONS IN THE PAST. MRI OF THE BRAIN ON 06/10/16 SHOWED SCATTERED ACUTE SMALL CORTICAL INFARCTS IN THE POSTERIOR FRONTAL PARIETAL LOBES B/L, CHRONIC HEMORRHAGE IN THE LEFT MEDIAL OCCIPITAL LOBE AND LEFT FRONTAL ENCEPHALOMALACIA. ROS: 14 POINT REVIEW OF SYMPTOMS IS NEGATIVE PER HPI. ALLERGIES: NONE SOCIAL HISTORY: NO ILLICIT DRUG USE, SMOKING, OR ETOH USE. FAMILY: NON CONTRIBUTORY. MEDICATIONS: REVIEWED BY NURSE'S RECONCILIATION SHEET. PAST MEDICAL HISTORY: HTN, HLD, CAD S/P STENT AND CABG, . MRI OF THE BRAIN ON 06/10/16 SHOWED SCATTERED ACUTE SMALL CORTICAL INFARCTS IN THE POSTERIOR FRONTAL PARIETAL LOBES B/L, CHRONIC HEMORRHAGE IN THE LEFT MEDIAL OCCIPITAL LOBE AND LEFT FRONTAL ENCEPHALOMALACIA. PHYSICAL EXAM: VITAL SIGNS: REVIEWED BY THE CHART GENERAL EXAM: PATIENT SEEN IN BED, IN NO ACUTE DISTRESS MORBIDLY OBESE. HEENT: PERRLA, EOMI, NECK SUPPLE, NO JVD, NO ADENOPATHY CVS: S1, S2, RRR, NO MURMURS NOTED LUNGS: CLEAR TO AUSCULTATION, NO ADVENTITIOUS SOUNDS ABDOMEN: SOFT AND NONTENDER EXTREMITIES: NO CLUBBING OR CYANOSIS. PP 2+ B/L NEURO: PT IS ALERT AND ORIENTED TO PERSON, PLACE, AND NOT YEAR. POOR ATTENTION SPAN, SLOW THOUGHT PROCESS, RECALL TO 5 MINUTES 0/3, JUDGEMENT IS NOT INTACT SPEECH IS FLUENT WITHOUT ERRORS, CN II-XII INTACT, MOTOR EXAM: NORMAL TONE, NORMAL BULK OF MUSCLE, MOVES ALL EXTREMITIES EQUALLY, NO PRONATOR DRIFT SEEN. SENSORY EXAM: DECREASEDLIGHT TOUCH, PIN PRICK UP TO CALVES B/L, PROPRIOCEPTION , DECREASED VIBRATION AT TOES AND KNEES. DEEP TENDON REFLEXES: 2+ THROUGHOUT EXCEPT 1 AT THE KNEES AND ANKLES. COORDINATION: FINGER TO NOSE IS INTACT. HEEL TO COE IS INTACT GAIT: DEFERRED FOR NOW. LABS: REVIEWED BY THE CHART. ASSESSMENT AND PLAN: 76 YEAR OLD MAN WITH H/O HTN, HLD, CAD S/P STENT AND CABG, ADMITTED FOR GENERALIZED WEAKNESS, GAIT DYSFUNCTION, AND DECOMPENSATED CHF. CALLED TO EVALUATE FOR DEMENTIA. HE IS ALERT AND ORIENTED TO PERSON AND PLACE BUT HAS POOR RECALL, POOR JUDGEMENT AND LOOSE ASSOCIATIONS OF WORDS. HIS THOUGHTS ARE DISORGANIZED. HE HAS BEEN NONCOMPLAINT WITH MEDICATIONS FOR HIS GENERAL MEDICAL CONDITIONS IN THE PAST. MRI OF THE BRAIN ON 06/10/16 SHOWED SCATTERED ACUTE SMALL CORTICAL INFARCTS IN THE POSTERIOR FRONTAL PARIETAL LOBES B/L, CHRONIC HEMORRHAGE IN THE LEFT MEDIAL OCCIPITAL LOBE AND LEFT FRONTAL ENCEPHALOMALACIA. IMPRESSION: THIS PT EXHIBITS FEATURES OF VASCULAR DEMENTIA WITH OCCASIONAL BEHAVIOR DISTURBANCES PLAN: 1. AVOID SEDATIVE MEDICATIONS AND NIGHTTIME INTERRUPTIONS. 2. ASA 81 MG AND PLAVIX 75 MG, STATIN FOR STROKE PREVENTION 3. MONITOR ELECTROLYTES AND CORRECT ACCORDINGLY. 4. PHYSICAL THERAPY EVALUATION FOR GAIT DYSFUNCTION SECONDARY TO UNDERLYING DIABETIC PERIPHERAL NEUROPATHY AND DECONDITIONED STATE. 5. ARICEPT 10MG PO DAILY. 6. FOLLOW UP OUTPATIENT THANK YOU PLEASE RECONSULT NECESSARY. Nina PATTERSON MD Past Patient History - Infectious Disease Hx of Infectious Diseases: None - Past Social History Smoking Status: Unknown If Ever Smoked - CARDIAC Hx Cardiac Disorders: Yes (CAD s/p bypass x 3) Hx Congestive Heart Failure: Yes - NEUROLOGICAL HX Cerebrovascular Accident: Yes - HEENT Hx HEENT Problems: Yes (visual changes) - RENAL Hx Chronic Kidney Disease: No - ENDOCRINE/METABOLIC Hx Diabetes Mellitus Type 2: Yes - INTEGUMENTARY Hx Dermatological Problems: No - MUSCULOSKELETAL/RHEUMATOLOGICAL Hx Musculoskeletal Disorders: Yes Hx Arthritis: Yes Hx Falls: Yes - PSYCHIATRIC Hx Substance Use: No - SURGICAL HISTORY Hx Surgeries: Yes Hx Open Heart Surgery: Yes Meds Allergies/Adverse Reactions: Allergies Allergy/AdvReac Type Severity Reaction Status Date / Time No Known Allergies Allergy Unverified 08/29/16 19:59 - Medications Medications: Current Medications Albuterol/Ipratropium (Duoneb 3 Mg/0.5 Mg (3 Ml) Ud) 3 ml IH [id number] PRN PRN Reason: Shortness of Breath Last Admin: 09/03/16 12:31 Dose: 3 ml Atorvastatin Calcium (Lipitor) 20 mg PO DIN [facility] Last Admin: 09/03/16 17:20 Dose: 20 mg Carvedilol (Coreg) 3.125 mg PO BID [facility] Last Admin: 09/03/16 17:20 Dose: 3.125 mg Clopidogrel Bisulfate (Plavix) 75 mg PO DAILY [facility] Last Admin: 09/03/16 09:22 Dose: 75 mg Donepezil HCl (Aricept) 10 mg PO HS [facility] Enoxaparin Sodium (Lovenox) 30 mg SC DAILY [facility] PRN Reason: Protocol Last Admin: 09/03/16 09:24 Dose: 30 mg Furosemide (Lasix) 20 mg PO DAILY [facility] Last Admin: 09/03/16 09:29 Dose: 20 mg Insulin Human Regular (Humulin R Low) 0 units SC ACHS [facility] PRN Reason: Protocol Last Admin: 09/03/16 16:31 Dose: Not Given Metformin HCl (Glucophage) 500 mg PO BID [facility] Last Admin: 09/03/16 17:20 Dose: 500 mg Ondansetron HCl (Zofran Inj) 4 mg IVP Q4H PRN PRN Reason: Nausea/Vomiting Potassium Chloride (K-Dur 20 Meq Er Tab) 20 meq PO BRK [facility] Last Admin: 09/03/16 09:22 Dose: 20 meq Quetiapine Fumarate (Seroquel) 25 mg PO HS [facility] PRN Reason: Protocol Ramipril (Altace) 1.25 mg PO DAILY [facility] Last Admin: 09/03/16 09:29 Dose: 1.25 mg Results - Vital Signs Recent Vital Signs: Last Vital Signs Temp 97.3 F L 09/03/16 11:40 Pulse 94 H 09/03/16 17:20 Resp 19 09/03/16 11:40 BP 113/72 09/03/16 17:20 Pulse Ox 96 09/03/16 06:00 - Labs Result Diagrams: 09/02/16 05:10 09/02/16 05:10 Labs: Laboratory Results - last 24 hr 09/03/16 09/03/16 07:18 11:13 POC Glucose (mg/dL) 119 H 192 H
--- NOTE | 2016-09-03 23:04 | CARD ---
APPROVED REPORT EXAM: Two-dimensional and M-mode echocardiogram with Doppler and color Doppler. INDICATION Cardiac Disease: CAD /BISCUSPID AV/CHF/CMP 2D DIMENSIONS IVSd1.3 (0.7-1.1cm)LVDd5.0 (3.9-5.9cm) LVOT Diameter2.2 (1.8-2.4cm)PWd1.2 (0.7-1.1cm) LVDs4.7 (2.5-4.0cm)FS (%) 5.9 % LVEF (%)13.8 (>50%) M-Mode DIMENSIONS Aortic Root3.90 (2.2-3.7cm)Aortic Cusp Exc.0.50 (1.5-2.0cm) Aortic Valve AoV Peak Jluoielx781.0cm/sAoV VTI95.9cmAO Peak GR.74mmHg LVOT Peak Ixfuindc37.9cm/sLVOT VTI9.82cmAO Mean GR.37mmHg OTILIO (VMAX)0.40cm2 Mitral Valve MV E Hyzppykt58.9cm/sMV A Xidnwroz12.6cm/sE/A ratio2.6 TDI Lateral E' Peak V5.26cm/sMedial E' Peak V3.12cm/sE/Lateral E'15.6 E/Medial E'26.3 Pulmonary Valve PV Peak Grdcrzeq62.0cm/sPV Peak Grad.1mmHg Tricuspid Valve TR Peak Jontliem840sp/sRAP TUTVYLNZ22hdLmVX Peak Gr.64mmHg [id number] LEFT VENTRICLE The Left Ventricle is borderline dilated. There is borderline to mild concentric left ventricular hypertrophy. The ejection fraction is severely impaired.EF-15-20% There is a flattened septum consistent with right ventricle volume and pressure overload. Transmitral Doppler flow pattern is Grade II-pseudonormal filling dynamics. No left ventricle thrombus noted on this study. There is no ventricular septal defect visualized. There is no left ventricular aneurysm. There is no mass noted in the left ventricle. RIGHT VENTRICLE The right ventricle is mildly to moderately dilated. There is normal right ventricular wall thickness. Systolic function is moderately reduced. ATRIA The left atrium is moderately dilated. The right atrium is moderately dilated. The interatrial septum is intact with no evidence for an atrial septal defect. AORTIC VALVE The aortic valve is calcified and displays decreased opening. There is mild aortic regurgitation. There is severe valvular aortic stenosis.OTILIO 0.4 cm2 There is no aortic valvular vegetation. MITRAL VALVE The mitral valve is thickened but opens well. Mitral regurgitation is moderate. There is no mitral valve stenosis. There is no evidence of mitral valve prolapse. TRICUSPID VALVE The tricuspid valve leaflets are thickened , but open well. There is moderate to severe tricuspid regurgitation.RVSP-74 mmi of Hg. There is no tricuspid valve stenosis. There is no tricuspid valve prolapse or vegetation. PULMONIC VALVE The pulmonic valve is mildly thickened. There is no pulmonic valvular regurgitation. There is no pulmonic valvular stenosis. GREAT VESSELS The aortic root is normal in size. The ascending aorta is normal in size. The pulmonary artery is normal. The IVC is dilated. PERICARDIAL EFFUSION There is no pleural effusion. There is no pericardial effusion. <Conclusion> The Left Ventricle is borderline dilated. There is borderline to mild concentric left ventricular hypertrophy. The ejection fraction is severely impaired.EF-15-20% There is mild aortic regurgitation. There is severe valvular aortic stenosis.OTILIO 0.4 cm2 Mitral regurgitation is moderate. There is moderate to severe tricuspid regurgitation.RVSP-74 mmi of Hg. The IVC is dilated. There is no pericardial effusion.
[2016-09-04] MEDS: Insulin Reg-LOW-Coverage SC SCH ×5 (05:06→22:00)
[2016-09-04] MEDS: Potassium Chloride 20 mEq ER Tab PO SCH (09:14)
[2016-09-04] MEDS: Enoxaparin 30 mg Syringe SC SCH (09:15)
[2016-09-04 11:22] LABS: MEAN CELL VOLUME 89.8 fL (80.0-105.0); MEAN CORPUSCULAR HEMOGLOBIN 30.2 pg (25.0-35.0); MEAN CORPUSCULAR HGB CONC 33.6 g/dl (31.0-37.0); RBC 5.3 10^6/uL (3.5-6.1); RED CELL DISTRIBUTION WIDTH 17.5 % (11.5-14.5); WHITE BLOOD COUNT 7.9 10^3/ul (4.5-11.0)
[2016-09-04 11:31] LABS: ALBUMIN 3.5 g/dL (3.0-4.8); ALT/SGPT 36 U/L (7-56); AST/SGOT 30 U/L (15-59); BLOOD UREA NITROGEN 31 mg/dL (7-21); CALCIUM 9.3 mg/dL (8.4-10.5); GFR AFRICAN-AMERICAN > 60; GFR NON-AFRICAN AMERICAN 54
[2016-09-05 08:14] VITALS: BP 100/73; RESP 19; TEMP 97.6; O2SAT 95
[2016-09-05] MEDS: Insulin Reg-LOW-Coverage SC SCH ×2 (08:27→12:31)
[2016-09-05] MEDS: Enoxaparin 30 mg Syringe SC SCH (09:17)
[2016-09-05] MEDS: Potassium Chloride 20 mEq ER Tab PO SCH (09:18)
[2016-09-05 09:19] VITALS: PULSE 60
--- NOTE | 2016-09-05 10:33 | CP.PCM.PN ---
Subjective - Date & Time of Evaluation Date of Evaluation: 09/05/16 Time of Evaluation: 08:30 - Subjective Subjective: feels Ok, No Cp, No SOB Objective - Vital Signs/Intake and Output Vital Signs (last 24 hours): Temp Pulse Resp BP Pulse Ox 97.6 F 60 19 100/73 95 09/05/16 08:13 09/05/16 09:18 09/05/16 08:13 09/05/16 09:18 09/05/16 08:13 Intake and Output: 09/05/16 09/05/16 06:59 18:59 Intake Total 240 Output Total 450 Balance -210 - Medications Medications: Current Medications Albuterol/Ipratropium (Duoneb 3 Mg/0.5 Mg (3 Ml) Ud) 3 ml IH [id number] PRN PRN Reason: Shortness of Breath Last Admin: 09/03/16 12:31 Dose: 3 ml Atorvastatin Calcium (Lipitor) 20 mg PO DIN [facility] Last Admin: 09/04/16 18:17 Dose: 20 mg Carvedilol (Coreg) 3.125 mg PO BID [facility] Last Admin: 09/05/16 09:18 Dose: 3.125 mg Clopidogrel Bisulfate (Plavix) 75 mg PO DAILY [facility] Last Admin: 09/05/16 09:19 Dose: 75 mg Donepezil HCl (Aricept) 10 mg PO HS [facility] Last Admin: 09/04/16 21:39 Dose: 10 mg Enoxaparin Sodium (Lovenox) 30 mg SC DAILY [facility] PRN Reason: Protocol Last Admin: 09/05/16 09:17 Dose: 30 mg Furosemide (Lasix) 20 mg PO DAILY [facility] Last Admin: 09/05/16 09:18 Dose: 20 mg Insulin Human Regular (Humulin R Low) 0 units SC ACHS [facility] PRN Reason: Protocol Last Admin: 09/05/16 08:27 Dose: Not Given Metformin HCl (Glucophage) 500 mg PO BID [facility] Last Admin: 09/05/16 09:18 Dose: 500 mg Ondansetron HCl (Zofran Inj) 4 mg IVP Q4H PRN PRN Reason: Nausea/Vomiting Potassium Chloride (K-Dur 20 Meq Er Tab) 20 meq PO BRK [facility] Last Admin: 09/05/16 09:18 Dose: 20 meq Quetiapine Fumarate (Seroquel) 25 mg PO HS [facility] PRN Reason: Protocol Last Admin: 09/04/16 21:39 Dose: 25 mg Ramipril (Altace) 1.25 mg PO DAILY [facility] Last Admin: 09/05/16 09:18 Dose: 1.25 mg - Labs Labs: 09/04/16 11:05 09/04/16 11:05 PT 13.9 Seconds (9.9-11.8) H 08/29/16 20:25 INR 1.29 (0.93-1.08) H 08/29/16 20:25 APTT 31.5 Seconds (23.7-30.8) H 08/29/16 20:25 Assessment and Plan - Assessment and Plan (Free Text) Assessment: 76 year old male with Hx of dementia, CAd, S/P CABG...2001 threee vessel TAYLOR to LAD, SVG to RCA ,and Left Radial to OM1, Bicuspid aortic valve / AR CMP ischemic Plan: Aggressive medical treat ment No cardiac interventionis planned ( not a candidate for intervention, b/c risk benefit ratio, outweighs the risk, demented confused 1:1 and climbs the side rails0.
--- NOTE | 2016-09-05 10:49 | PQF CHF ---
This form is a permanent part of the medical record Clarification of your documentation is requested to better reflect the severity of illness and intensity of treatment of your patient. Indicators present DX of CHF, ECHO- EF 13.6. Please document Type & acuity CHF POA [x] Diagnosis of CHF and/or history of CHF [] BNP > 200 [] Imaging Finding of Pulmonary Edema /Pleural Effusions [] Fluid/Volume Overload [] Pitting edema [x] Ejection Fraction < 40% (Indicative of Systolic Heart Failure) [] Ejection Fraction > 40% (Indicative of Diastolic Heart Failure) [] Dyspnea / Orthopenea / Paroxysmal Nocturnal Dyspnea [] Other: Location in the medical record that reflects the above clinical findings: []ECHO Treatment Provided: [] PHYSICIAN'S RESPONSE Based on your medical judgment of the clinical indicators outlined above, are you treating this patient for a known or suspected: [] Acute CHF [] Systolic [] Diastolic [] Combined [] Chronic CHF [] Systolic [] Diastolic [] Combined [] Acute on Chronic CHF []Systolic [] Diastolic [] Combined [] CHF due hypertension [] Acute systolic []Chronic systolic [] Acute/ chronic systolic [] Other, please indicate: [] [] If Unable to Determine, please check the box, sign and date. Present On Admission (POA) Indicator: [] Present at the time of admission [] Not present at the time of admission [] Clinically Undetermined In responding to this query, please exercise your independent professional judgment. The fact that a question is asked does not imply that any particular answer is desired or expected. Thank you for your clarification on this documentation. If you have any questions please call:[ ] * Thank you, [ ] Radha Hilliard RN CDS gear tooth lapping machine operator [place]
--- NOTE | 2016-09-05 10:54 | CP.PCM.PN ---
Subjective - Date & Time of Evaluation Date of Evaluation: 09/04/16 Time of Evaluation: 10:55 - Subjective Subjective: Pt seen and examined in bed, no shortness of breath, denies chest pain, observed to be calm, and cooperative, follows commands. AAO x 2, resting comfortabely in bed. 1:1 safety monitor has been discontinued at 10:55 am. ALO Waldrop. Objective - Vital Signs/Intake and Output Vital Signs (last 24 hours): Temp Pulse Resp BP Pulse Ox 97.6 F 60 19 100/73 95 09/05/16 08:13 09/05/16 09:18 09/05/16 08:13 09/05/16 09:18 09/05/16 08:13 Intake and Output: 09/05/16 09/05/16 06:59 18:59 Intake Total 240 Output Total 450 Balance -210 - Medications Medications: Current Medications Albuterol/Ipratropium (Duoneb 3 Mg/0.5 Mg (3 Ml) Ud) 3 ml IH [id number] PRN PRN Reason: Shortness of Breath Last Admin: 09/03/16 12:31 Dose: 3 ml Atorvastatin Calcium (Lipitor) 20 mg PO DIN [facility] Last Admin: 09/04/16 18:17 Dose: 20 mg Carvedilol (Coreg) 3.125 mg PO BID [facility] Last Admin: 09/05/16 09:18 Dose: 3.125 mg Clopidogrel Bisulfate (Plavix) 75 mg PO DAILY [facility] Last Admin: 09/05/16 09:19 Dose: 75 mg Donepezil HCl (Aricept) 10 mg PO HS [facility] Last Admin: 09/04/16 21:39 Dose: 10 mg Enoxaparin Sodium (Lovenox) 30 mg SC DAILY [facility] PRN Reason: Protocol Last Admin: 09/05/16 09:17 Dose: 30 mg Furosemide (Lasix) 20 mg PO DAILY [facility] Last Admin: 09/05/16 09:18 Dose: 20 mg Insulin Human Regular (Humulin R Low) 0 units SC ACHS [facility] PRN Reason: Protocol Last Admin: 09/05/16 08:27 Dose: Not Given Metformin HCl (Glucophage) 500 mg PO BID [facility] Last Admin: 09/05/16 09:18 Dose: 500 mg Ondansetron HCl (Zofran Inj) 4 mg IVP Q4H PRN PRN Reason: Nausea/Vomiting Potassium Chloride (K-Dur 20 Meq Er Tab) 20 meq PO BRK [facility] Last Admin: 09/05/16 09:18 Dose: 20 meq Quetiapine Fumarate (Seroquel) 25 mg PO HS [facility] PRN Reason: Protocol Last Admin: 09/04/16 21:39 Dose: 25 mg Ramipril (Altace) 1.25 mg PO DAILY [facility] Last Admin: 09/05/16 09:18 Dose: 1.25 mg - Labs Labs: 09/04/16 11:05 09/04/16 11:05 PT 13.9 Seconds (9.9-11.8) H 08/29/16 20:25 INR 1.29 (0.93-1.08) H 08/29/16 20:25 APTT 31.5 Seconds (23.7-30.8) H 08/29/16 20:25
--- NOTE | 2016-09-06 10:06 | PCM.PYCHPN ---
Psychiatric Progress Note - Psychiatric Progress Note Patient seen today, length of contact: was evaluated 09/05 Patient Chief Complaint: weakness and confusion Problems Identified/Issues Discussed: see written consult. my findings, relect those of neurology/Dr Cochran. Pt has patchy recall,mild disorientation,not presently agitated or pschotic.. is subdued. chart reviewed and case discussed w nursing. appears to have a dementia of the vascular type
== END 2016-09-05 17:35 | DRG 292 ==
LOC: ED 19:41 → ERH 22:41 → 2RSO 08-30 00:33 → OBSVTOIN 08-30 12:24 → 3RNO 09-03 20:53
PROVIDERS: ADMIT Internal Medicine; ATTEND Internal Medicine
DX: I11.0 Hypertensive heart disease with heart failure (principal); I50.31 Acute diastolic (congestive) heart failure; F01.51 Vascular dementia, unspecified severity, with behavioral disturbance; E11.65 Type 2 diabetes mellitus with hyperglycemia; G30.9 Alzheimer's disease, unspecified; Q23.1 Congenital insufficiency of aortic valve; I25.5 Ischemic cardiomyopathy; I25.10 Atherosclerotic heart disease of native coronary artery without angina pectoris; Z95.1 Presence of aortocoronary bypass graft; N40.1 Benign prostatic hyperplasia with lower urinary tract symptoms; R33.8 Other retention of urine; I69.393 Ataxia following cerebral infarction; M19.90 Unspecified osteoarthritis, unspecified site; E78.5 Hyperlipidemia, unspecified; S50.319A Abrasion of unspecified elbow, initial encounter; W18.09XA Striking against other object with subsequent fall, initial encounter; Z91.81 History of falling; Y92.009 Unspecified place in unspecified non-institutional (private) residence as the place of occurrence of the external cause

== ENCOUNTER 2016-11-20 16:28 | Inpatient (IN) | payer MEDICARE ==
--- NOTE | 2016-11-20 16:54 | ED PDOC ---
Arrival/HPI - General Historian: Patient - History of Present Illness Time/Duration: < week Symptom Onset: Gradual Symptom Course: Unchanged Quality: Other Activities at Onset: Rest, Light Context: Home <Светлана Rainey - Last Filed: 11/20/16 18:34> <Compa Pompa Thalia Nassar - Last Filed: 11/20/16 18:54> - General Chief Complaint: Altered Mental Status Time Seen by Provider: 11/20/16 16:33 - History of Present Illness Narrative History of Present Illness (Text): 11/20/16 17:22 This is a 76Y M with PMH of CHF, CVA with L residual weakness, cataracts, Hypertension, Diabetes, CAD s/p CABG, and vascular dementia who came to emergency department by family for confusion x 4 days. Patient is accompanied by sister and son who provide history. They report that since Friday they noticed that the patient has been more confused, especially at night. They have also seen abrasions on the patient which they believe is secondary to unwitnessed falls. The patient has also not been eating well either. Mr. Larkin is able to feed and dress himself, but is not able to pay his bills or drive. Today they found the patient peeing and pooping in the trash can and then crawled into bed without cleaning himself. They called PMD, Dr. Maldonado who told them to send pt to the emergency department. Of note, the patient does have chronic wounds on his legs bilaterally. He does have swelling in his L leg and L 1st toe which has had infection in the past. Dr. Hinton is his rad technologist who he sees regularly. Mr. Larkin was A&O x 3 upon examination. He denies having any CP, SOB, n/v/d, numbness/tingling, weakness, fever or chills. He does report that he has some visual hallucinations at times. For example he said if I left the room as we were talking he would not notice and continue the conversation. As per his sister, the patient was referred to a retinal specialist by Dr. Guajardo but has not been able to see the specialist yet. He denies auditory hallucinations. (Светлана Rainey) Past Medical History - Provider Review Nursing Documentation Reviewed: Yes - Travel History Have you recently traveled outside [place] w/in the past 3 mons?: No - Infectious Disease Hx of Infectious Diseases: None - Tetanus Immunization Tetanus Immunization: >10 years Ago - Cardiac Hx Cardiac Disorders: Yes (CAD s/p bypass x 3) Hx Congestive Heart Failure: Yes - Neurological HX Cerebrovascular Accident: Yes - HEENT Hx HEENT Disorder: Yes (visual changes) - Renal Hx Renal Disorder: No - Endocrine/Metabolic Hx Diabetes Mellitus Type 2: Yes - Integumentary Hx Dermatological Disorder: No - Musculoskeletal/Rheumatological Hx Musculoskeletal Disorders: Yes Hx Arthritis: Yes Hx Falls: Yes - Psychiatric Hx Substance Use: No - Surgical History Hx Open Heart Surgery: Yes <Светлана Rainey - Last Filed: 11/20/16 18:34> Family/Social History - Physician Review Nursing Documentation Reviewed: Yes Family/Social History: Hypertension Smoking Status: Former Smoker Hx Alcohol Use: No Hx Substance Use: No <Светлана Rainey - Last Filed: 11/20/16 18:34> Allergies/Home Meds <Светлана Rainey - Last Filed: 11/20/16 18:34> <Compa Pompa Jr. - Last Filed: 11/20/16 18:54> Allergies/Adverse Reactions: Allergies No Known Allergies Allergy (Verified 11/20/16 16:47) Home Medications: Home Meds Medication Instructions Recorded Confirmed Clopidogrel [Plavix] 75 mg PO DAILY 11/20/16 11/20/16 Furosemide [Lasix] 40 mg PO DAILY 11/20/16 11/20/16 MetFORMIN [glucOPHAGE] 500 mg PO BID 11/20/16 11/20/16 Potassium Gluconate [Potassium] 10 meq PO DAILY 11/20/16 11/20/16 Review of Systems - Physician Review All systems were reviewed & negative as marked: Yes - Review of Systems Constitutional: Normal. absent: Fevers, Night Sweats Eyes: Vision Changes (visual hallucinations ) ENT: Normal. absent: Hearing Changes Respiratory: Normal. absent: SOB, Cough, Sputum Cardiovascular: Normal. absent: Chest Pain, Palpitations Gastrointestinal: Normal. absent: Abdominal Pain, Diarrhea, Nausea, Vomiting Genitourinary Male: Normal. absent: Dysuria, Frequency Musculoskeletal: Normal. absent: Arthralgias, Back Pain Skin: Skin Lesions (on bilateral legs ), Cellulitis Neurological: Normal. absent: Headache, Dizziness, Focal Weakness, Gait Changes , Facial Droop Endocrine: Normal Hemo/Lymphatic: Normal Psychiatric: Normal. absent: Anxiety, Depression <Светлана Rainey - Last Filed: 11/20/16 18:34> Physical Exam Temperature: Afebrile Blood Pressure: Normal Pulse: Regular Respiratory Rate: Normal Appearance: Positive for: Well-Appearing, Non-Toxic, Comfortable Pain Distress: None Mental Status: Positive for: Alert and Oriented X 3. No: Confused, Agitated, Lethargic Finger Stick Blood Glucose: 228 - Systems Exam Head: Present: Normocephalic, Abrasion (L scientology ) Pupils: Present: PERRL Extroacular Muscles: Present: EOMI Conjunctiva: Present: Normal Mouth: Present: Dry Neck: Present: Normal Range of Motion Respiratory/Chest: Present: Clear to Auscultation, Good Air Exchange. No: Respiratory Distress, Accessory Muscle Use Cardiovascular: Present: Regular Rate and Rhythm, Normal S1, S2. No: Murmurs Abdomen: Present: Normal Bowel Sounds. No: Tenderness, Distention, Peritoneal Signs Upper Extremity: Present: Normal Inspection. No: Cyanosis, Edema Lower Extremity: Present: Edema (+ 1 bilaterally ), Normal ROM, Erythema (on L from ankle to above knee). No: CALF TENDERNESS, Macrina's Sign, Tenderness, Temperature Abnormalties Neurological: Present: GCS=15, CN II-XII Intact, Speech Normal, Motor Func Grossly Intact, Normal Sensory Function, Normal Cerebellar Funct Skin: Present: Warm, Dry, Erythematous (L leg from ankle to above knee ), Abrasion (on L scientology), Other (multiple wounds on both shins bilaterally. L 1st toe has ulceration around nail bed. ). No: Rashes Psychiatric: Present: Alert, Oriented x 3, Hallucinations (visual ) <Светлана Rainey - Last Filed: 11/20/16 18:34> <Compa Pompa Jr. - Last Filed: 11/20/16 18:54> Vital Signs Temp Pulse Resp BP Pulse Ox 11/20/16 16:36 97.9 F 77 18 105/75 100 Medical Decision Making Re-evaluation Time: 18:09 Reassessment Condition: Unchanged - Lab Interpretations I have reviewed the lab results: Yes Interpretation: Abnormal lab values - RAD Interpretation Roof Slater: ED Physician - EKG Interpretation Interpreted by ED Physician: Yes Type: 12 lead EKG Comparison: Similar to previous EKG <Светлана Rainey - Last Filed: 11/20/16 18:34> <Compa Pompa Jr. - Last Filed: 11/20/16 18:54> ED Course and Treatment: 11/20/16 17:36 Impression: This is a 76Y M with PMH of CHF, CVA with L residual weakness, cataracts, Hypertension, Diabetes, CAD s/p CABG, and vascular dementia who came to emergency department by family for confusion and L leg erythema and edema. Differential Diagnosis included but are not limited to: failure to thrive v. dementia v. CVA v. infection Plan: - EKG - CBC, CMP, Cardiac ISO, U/A, BNP, Magnesium - CXR - Venous doppler L leg - CT head w/o constrast - NS @150 - Tdap booster - Cleocin - Reassess and disposition EKG: Ordered, reviewed, and independently interpreted the EKG. Rate : 76 BPM Rhythm : NSR Interpretation : No ST-segment elevations or depressions, no T-wave inversions, normal intervals. Comparison : Similar to previous EKG CT HEAD WITHOUT CONTRAST. HISTORY: Altered mental status and left facial droop COMPARISON: Comparison is made to 08/29/2016 FINDINGS: HEMORRHAGE: No intracranial hemorrhage. BRAIN: Again seen is encephalomalacia at the left parietal occipital lobe suggestive of old infarct. Small foci of encephalomalacia at the white matter of the right holman radiata and central semiovale again noted also likely represent old lacunar infarction. Moderate atrophy and moderate to extensive white matter changes are again noted. VENTRICLES: Unremarkable. No hydrocephalus. CALVARIUM: Unremarkable. PARANASAL SINUSES: Unremarkable as visualized. No significant inflammatory changes. MASTOID AIR CELLS: Unremarkable as visualized. No inflammatory changes. OTHER FINDINGS: None. IMPRESSION: No evidence of acute intracranial hemorrhage. No evidence of significant interval change compared to the previous study dated 08/29/2016 as described above. Progress Notes: 11/20/16 18:05 Patient noted to have hypokalemia, hypomagnesia, hyperbilirubinemia and transaminitis. He does not complain of any GI symptoms at this time. Pt was given potassium and magnesium replacement. CXR showed no active disease as compared to previous CXR (Final read pending). Spoke with Dr. Day Maldonado who will admit the patient into his service. 11/20/16 18:20 (Светлана Rainey) 11/20/16 Patient Seen With Resident: In agreement with resident note which contains more details about the patient. Patient was seen and evaluated with resident. Came up with plan and treatment together. 11/20/16 18:30 ATTENDING PHYSICIAN FOCUSED HISTORY AND PHYSICAL EXAM NOTE: Pt is a 76 yr old male who was seen and examined with the resident. Pt presents secondary to increased confusion since Friday night. Pt also not eating or drinking. Additionally, pt with redness to left leg. On our exam, T97.9, P77, R18, BP105/75 Gen: Pt is A&O x 3 in NAD HEENT: old laceration/cut to left scientology (questionable recent trauma) Heart: RRR Lungs: CTA B/L Neuro: left leg weakness (old) Ext: Redness to left lower ext Initial Impression: Cellulitis, dehydration, AMS Initial Plan: Will check labs and get imaging . (Compa Pompa Jr.) - Lab Interpretations Lab Results: 11/20/16 17:23 11/20/16 17:23 Lab Results 11/20/16 17:23: Sodium 136, Potassium 3.5 L, Chloride 98, Carbon Dioxide 26, Anion Gap 16, BUN 43 H, Creatinine 1.2, Est GFR ( Amer) > 60, Est GFR ( Non-Af Amer) 59, Random Glucose 157 H, Calcium 8.8, Magnesium 1.4 L, Total Bilirubin 2.5 H, AST 104 H, ALT 216 H, Alkaline Phosphatase 204 H, Lactate Dehydrogenase 605, Total Creatine Kinase 34 L, Troponin I 0.02 D, NT-Pro-B Natriuret Pep 30879 H, Total Protein 6.9, Albumin 3.5, Globulin 3.5, Albumin/ Globulin Ratio 1.0 L 11/20/16 17:23: WBC 8.7, RBC 5.02, Hgb 15.2, Hct 44.1, MCV 87.8, MCH 30.3, MCHC 34.5, RDW 18.1 H, Plt Count 191, MPV 10.7, Gran % 80.1 H, Lymph % (Auto) 11.0 L , Duval % (Auto) 7.9 H, Eos % (Auto) 0.9 L, Baso % (Auto) 0.1, Gran # 7.00 H, Lymph # 1.0 L, Duval # 0.7 H, Eos # 0.1, Baso # 0.01 - RAD Interpretation Narrative RAD Interpretations (Text): 11/20/16 18:09 CXR showed no active disease. (Светлана Rainey) Radiology Orders: 11/20/16 16:53 CHEST PORTABLE [RAD] Stat 11/20/16 16:55 HEAD W/O CONTRAST [CT] Stat 11/20/16 16:56 DUPLEX LOWER EXTRM VEIN LEFT [US] Stat - Medication Orders Current Medication Orders: Magnesium Sulfate 2 gm/ Sodium (Chloride) 104 mls @ 102 mls/hr IVPB ONCE ONE Stop: 11/20/16 19:00 Discontinued Medications Clindamycin Phosphate 900 mg/ (Sodium Chloride) 106 mls @ 106 mls/hr IVPB STAT [facility] PRN Reason: Protocol Stop: 11/20/16 18:49 Potassium Chloride (K-Dur 20 Meq Er Tab) 20 meq PO STAT [facility] Stop: 11/20/16 18:00 Tetanus/Reduced Diphtheria/Acell Pertussis (Boostrix Vaccine Inj) 0.5 ml IM .ONCE ONE Stop: 11/20/16 18:04 Disposition/Present on Arrival - Present on Arrival Any Indicators Present on Arrival: No History of DVT/PE: No History of Uncontrolled Diabetes: No Urinary Catheter: No History Surgical Site Infection Following: None - Disposition Have Diagnosis and Disposition been Completed?: Yes Disposition Time: 18:19 Patient Plan: Admission <Светлана Rainey - Last Filed: 11/20/16 18:34> - Present on Arrival Any Indicators Present on Arrival: No - Disposition Have Diagnosis and Disposition been Completed?: Yes Patient Plan: Admission <Compa Pompa Jr. - Last Filed: 11/20/16 18:54> - Disposition Diagnosis: Dehydration, Confusion, Transaminitis, Cellulitis Disposition: HOSPITALIZED Patient Problems: Current Active Problems Problem Status Onset Dehydration Acute Confusion Acute Transaminitis Acute Cellulitis Acute Condition: FAIR Discharge Instructions (ExitCare): Cellulitis (ED) Referrals: Morgan Maldonado JD, MD [Primary Care Provider] - Follow up with primary
[2016-11-20] MEDS ORDERED: Sodium Chloride 0.9% 1,000 ML IV SCH (17:00)
[2016-11-20 17:40] LABS: BASO # 0.01 K/mm3 (0.0-2.0); BASO % 0.1 % (0.0-3.0); EOS # 0.1 (0.0-0.7); EOS % 0.9 % (1.5-5.0); GRAN % 80.1 % (50.0-68.0); HEMATOCRIT 44.1 % (42.0-52.0); MEAN CELL VOLUME 87.8 fl (80.0-105.0); MEAN CORPUSCULAR HEMOGLOBIN 30.3 pg (25.0-35.0); MEAN CORPUSCULAR HGB CONC 34.5 g/dl (31.0-37.0); MEAN PLATELET VOLUME 10.7 fl (7.0-11.0); MONO # 0.7 (0.1-0.6); MONO % 7.9 % (1.0-6.0); RED CELL DISTRIBUTION WIDTH 18.1 % (11.5-14.5); WHITE BLOOD COUNT 8.7 10^3/ul (4.5-11.0)
[2016-11-20 17:50] LABS: ALKALINE PHOSPHATASE 204 U/L (38-126); ALT/SGPT 216 U/L (7-56); AST/SGOT 104 U/L (17-59); BILIRUBIN,TOTAL 2.5 mg/dL (0.2-1.3); BLOOD UREA NITROGEN 43 mg/dL (7-21); CALCIUM 8.8 mg/dL (8.4-10.5); CARBON DIOXIDE 26 mmol/L (21-33); CHLORIDE 98 mmol/L (98-107); GFR AFRICAN-AMERICAN > 60; GLUCOSE,RANDOM 157 mg/dL (70-110); MAGNESIUM 1.4 mg/dL (1.7-2.2); POTASSIUM 3.5 mmol/L (3.6-5.0); SODIUM 136 mmol/L (132-148); TOTAL PROTEIN 6.9 g/dL (5.8-8.3)
[2016-11-20] MEDS ORDERED: Potassium Chloride 20 mEq ER Tab PO STA (17:59)
[2016-11-20] MEDS ORDERED: Magnesium Sulfate 2 GM in Sodium Chloride 0.9% 100 ML IVPB ONE (17:59)
[2016-11-20 18:01] LABS: TROPONIN I 0.02 ng/mL
[2016-11-20] MEDS ORDERED: TDAP Vaccine 0.5 mL Syr IM ONE (18:03)
--- NOTE | 2016-11-20 18:19 | CT ---
PROCEDURE: CT HEAD WITHOUT CONTRAST. HISTORY: Altered mental status and left facial droop COMPARISON: Comparison is made to 08/29/2016 TECHNIQUE: Axial computed tomography images were obtained through the head/brain without intravenous contrast. Radiation dose: Total exam DLP = 774.23 mGy-cm. This CT exam was performed using one or more of the following dose reduction techniques: Automated exposure control, adjustment of the mA and/or kV according to patient size, and/or use of iterative reconstruction technique. FINDINGS: HEMORRHAGE: No intracranial hemorrhage. BRAIN: Again seen is encephalomalacia at the left parietal occipital lobe suggestive of old infarct. Small foci of encephalomalacia at the white matter of the right holman radiata and central semiovale again noted also likely represent old lacunar infarction. Moderate atrophy and moderate to extensive white matter changes are again noted. VENTRICLES: Unremarkable. No hydrocephalus. CALVARIUM: Unremarkable. PARANASAL SINUSES: Unremarkable as visualized. No significant inflammatory changes. MASTOID AIR CELLS: Unremarkable as visualized. No inflammatory changes. OTHER FINDINGS: None. IMPRESSION: No evidence of acute intracranial hemorrhage. No evidence of significant interval change compared to the previous study dated 08/29/2016 as described above.
--- NOTE | 2016-11-20 18:53 | US ---
PROCEDURE: Left lower extremity venous US HISTORY: Leg pain and swelling. Evaluate for DVT. PHYSICIAN(S): Compa Vazquez MD. TECHNIQUE: Duplex sonography and color-flow Doppler with graded compression were used to evaluate the deep venous system of the left lower extremity. FINDINGS: The visualized deep venous system of the left lower extremity is sonographically normal and compressible. Normal wave forms and augmentation are seen. There is no sonographic evidence for deep venous thrombosis in the visualized segments of the left lower extremity. IMPRESSION: 1. No sonographic evidence for deep venous thrombosis in the visualized segments of the left lower extremity.
[2016-11-21 00:27] LABS: PH,URINE 5.5 (4.7-8.0); URINE BILIRUBIN NEGATIVE (NEGATIVE); URINE BLOOD NEGATIVE (NEGATIVE); URINE GLUCOSE (UA) NEGATIVE (NEGATIVE); URINE KETONE NEGATIVE (NEGATIVE); URINE LEUKOCYTE ESTERASE NEGATIVE Leu/uL (NEGATIVE); URINE PROTEIN NEGATIVE mg/dL (<30 mg/dL)
[2016-11-21 00:38] LABS: URINE APPEARANCE CLEAR (CLEAR); URINE COLOR YELLOW (YELLOW)
[2016-11-21 04:52] VITALS: BMI 23.3
--- NOTE | 2016-11-21 07:21 | RAD ---
HISTORY: Pt not eating; dehydrated COMPARISON: Frontal chest 08/29/2016. FINDINGS: LUNGS: Medial basilar atelectasis or infiltrate is seen at the right chest with none on the left. PLEURA: Minimal right pleural effusion is seen blunting the right costophrenic sulcus in the interval with none at the left. No pneumothorax. CARDIOVASCULAR: Prominent cardiac silhouette is again noted with sternotomy wires again evident. Pulmonary venous congestion is suggestive of a [id number] basis. OSSEOUS STRUCTURES: No significant abnormalities. VISUALIZED UPPER ABDOMEN: Normal. OTHER FINDINGS: None. IMPRESSION: Consider to moderate CHF with right basilar atelectasis or infiltrate evident. Trace right pleural effusion noted.
[2016-11-21] MEDS ORDERED: Potassium Chloride 40 mEq/30 ml LIQ UD PO ONE (09:09)
[2016-11-21] MEDS ORDERED: Ampicillin/Sulbactam 1.5 gm Inj IVPB SCH (09:15)
--- NOTE | 2016-11-21 10:30 | CP.PCM.HP ---
History of Present Illness - History of Present Illness History of Present Illness: 76 yo male hx of CAD s/p CABG, CHF, Tyoe II DM presents to ED with increased edema of legs and swelling and redness of L leg with increased confusion and agitation, no fever/chills, no N/V, no chest pain or sob, no cough, Present on Admission - Present on Admission Any Indicators Present on Admission: No Review of Systems - Review of Systems Systems not reviewed;Unavailable: Dementia - Constitutional Constitutional: Fatigue, Frequent Falls, Weight Loss, Weakness - EENT Ears: Decreased Hearing - Cardiovascular Cardiovascular: Dyspnea on Exertion, Edema, Pedal Edema - Respiratory Respiratory: Dyspnea, Dyspnea on Exertion - Musculoskeletal Musculoskeletal: Abnormal Gait - Integumentary Integumentary: Sores - Neurological Neurological: Abnormal Gait, Abnormal Hearing, Behavioral Changes, Frequent Falls, Memory Loss, Weakness - Psychiatric Psychiatric: Behavioral Changes, Change in Appetite, Confusion Past Patient History - Infectious Disease Hx of Infectious Diseases: None - Tetanus Immunizations Tetanus Immunization: >10 years Ago - Past Social History Smoking Status: Former Smoker - CARDIAC Hx Cardiac Disorders: Yes (CAD s/p bypass x 3) Hx Congestive Heart Failure: Yes - NEUROLOGICAL HX Cerebrovascular Accident: Yes Hx Dementia: Yes - HEENT Hx HEENT Problems: Yes (visual changes) - RENAL Hx Chronic Kidney Disease: No - ENDOCRINE/METABOLIC Hx Diabetes Mellitus Type 2: Yes - INTEGUMENTARY Hx Dermatological Problems: No - MUSCULOSKELETAL/RHEUMATOLOGICAL Hx Falls: Yes - PSYCHIATRIC Hx Substance Use: No - SURGICAL HISTORY Hx Open Heart Surgery: Yes - ANESTHESIA Hx Anesthesia Reactions: No Meds Allergies/Adverse Reactions: Allergies Allergy/AdvReac Type Severity Reaction Status Date / Time No Known Allergies Allergy Verified 11/20/16 16:47 Physical Exam - Constitutional Appears: Agitated, Confused, Cachectic, Chronically Ill - Head Exam Head Exam: ATRAUMATIC, NORMOCEPHALIC - Eye Exam Eye Exam: EOMI, PERRL - ENT Exam ENT Exam: Mucous Membranes Moist - Neck Exam Neck exam: Positive for: Normal Inspection - Respiratory Exam Respiratory Exam: Rales, Rhonchi - Cardiovascular Exam Cardiovascular Exam: REGULAR RHYTHM, JVD, Systolic Murmur - GI/Abdominal Exam GI & Abdominal Exam: Normal Bowel Sounds, Soft - Extremities Exam Extremities exam: Positive for: pedal edema - Neurological Exam Neurological exam: Abnormal Gait, Altered - Psychiatric Exam Psychiatric exam: Agitated - Skin Skin Exam: Erythema Results - Vital Signs Recent Vital Signs: Last Vital Signs Temp 97.9 F 11/21/16 08:31 Pulse 73 11/21/16 08:31 Resp 22 11/21/16 08:31 BP 120/81 11/21/16 09:45 Pulse Ox 99 11/21/16 08:31 - Labs Result Diagrams: 11/20/16 17:23 11/20/16 17:23 Labs: Laboratory Results - last 24 hr 11/20/16 11/21/16 19:32 00:20 Ammonia < 9 L Urine Color Yellow Urine Appearance Clear Urine pH 5.5 Ur Specific Ney 1.015 Urine Protein Negative Urine Glucose (UA) Negative Urine Ketones Negative Urine Blood Negative Urine Nitrate Negative Urine Bilirubin Negative Urine Urobilinogen 2.0 H Ur Leukocyte Esterase Negative Assessment & Plan (1) Cellulitis Status: Acute (2) Confusion Status: Acute (3) Transaminitis Status: Acute (4) CHF (congestive heart failure) Status: Acute (5) Coronary artery disease Status: Chronic - Date & Time Date: 11/21/16 Time: 09:00
--- NOTE | 2016-11-21 11:13 | CARD ---
APPROVED REPORT EKG Measurement Heart [id number] <Conclusion> Normal sinus rhythm Possible Left atrial enlargement Inferior infarct, age undetermined ST & T wave abnormality, consider lateral ischemia Abnormal ECG
[2016-11-21] MEDS: Insulin Reg-LOW-Coverage SC SCH ×3 (11:14→22:20)
[2016-11-21] MEDS: Pantoprazole 40 mg EC Tab PO SCH (12:57)
[2016-11-21] MEDS: Potassium Chloride 20 mEq ER Tab PO SCH (12:57)
--- NOTE | 2016-11-21 13:25 | IP.NPCORE ---
Heart Failure Core Measure - Heart Failure Ejection Fraction: Less Than 40 % Left Ventricular Function to be assessed after discharge: Yes JN Inhibitor Prescribed: Yes Beta-Sung Prescribed: Carvedilol Angiotensin II Receptor Sung Prescribed: Yes AnticoagulationTherapy for Atrial Fibrillation/Atrialflutter: No Contraindication/Reason for not providing: n/a Aldosterone Antagonist Prescribed: Yes Hydralazine Nitrate Prescribed: No Contraindication/Reason for not providing: noted hypotension Implantable Cardioverter Defibrillator Therapy: No - Follow up Will be discharged to: Custodial Facility Follow Up Date (must be within 7 days from discharge): 11/28/16 (recommended ) Follow Up Time: 09:00
[2016-11-21] MEDS: Magnesium Oxide 400 mg Tab UD PO SCH (18:22)
--- NOTE | 2016-11-21 23:28 | CON ---
DATE: 11/21/2016 LOCATION: The patient is in room 577, bed 1. REASON FOR CONSULTATION: CHF, coronary artery disease, history of CABG. HISTORY OF PRESENT ILLNESS: A 76-year-old male with known case of coronary artery disease, status post coronary bypass surgery, ischemic cardiomyopathy, CHF, hypertension, diabetes, cataract, CVA with left-sided residual weakness, altered mental status admitted to the history that since last 4 days, he had been much more confused at home. The patient was brought to the emergency room, was found to have also congestive heart failure. The patient denies any chest pain or palpitations. PAST MEDICAL HISTORY: Significant for coronary artery disease, status post coronary bypass surgery, ischemic cardiomyopathy, hypertension, diabetes, hyperlipidemia, 3-vessel CABG in 2001, cataract, CVA with left-sided residual weakness, history of BPH. PERSONAL HISTORY: No history of smoking or drinking. ALLERGIES: NO KNOWN ALLERGIES. HOME MEDICATIONS: Included Lasix 40 p.o. daily, Plavix 75 daily, potassium 10 daily, metformin 500 b.i.d. REVIEW OF SYSTEMS: All other systems reviewed, positive mentioned in the history, otherwise negative. PHYSICAL EXAMINATION: VITAL SIGNS: Blood pressure 121/84, respirations 20, pulse 78, and temperature 97.7. HEENT: Head is normocephalic. Eyes: Pupils normal and conjunctivae normal. NECK: JVP elevated. LUNGS: Bibasal rales. CARDIOVASCULAR: S1 and S2. Ejection systolic murmur 3/6. ABDOMEN: Soft. No tender. No organomegaly. EXTREMITIES: Legs, bilateral edema on the legs. Also with redness and also the patient has abrasions, probably due to multiple falls. LABORATORY DATA: Showed WBC 8.7, hemoglobin 15.2, hematocrit 44.1, platelet 191. Sodium 136, potassium 3.5, BUN 43, creatinine 1.2, random sugar 152, total bilirubin 2.5, AST 104, ALT 216, alkaline phosphatase 204, troponin 0.02, [id number] natriuretic peptide [id number], total protein 6.9, albumin 3.5. EKG shows sinus rhythm, left atrial enlargement, old inferior MA, ST-T wave abnormalities. Chest x-ray show [id number] CHF with the right basilar atelectasis or infiltrate, right pleural effusion. The patient had echo on 09/03/2016, which showed dilated left ventricular contractility marked disease with ejection fraction around 15-20% severe aortic stenosis, aortic valve area 0.4 cm square, mild aortic regurgitation, moderate mitral regurgitation, moderate to severe TR with RVSP 74 mmHg suggestive of severe pulmonary hypertension. DIAGNOSES: Congestive heart failure, acute on chronic left ventricular systolic failure, cardiomyopathy; ischemic type, coronary artery disease, history of coronary bypass surgery, severe aortic stenosis, bicuspid aortic valve, hypertension, diabetes, cataract, cerebrovascular accident with left residual weakness, altered mental status, confused, dementia, abrasions on the legs probably related to the falls at home, hypokalemia. PLAN: Put the patient on Lasix 40 IV b.i.d., spironolactone 25 b.i.d. We will give extra potassium 40 p.o. was ordered this morning. We will start with another 20 everyday. Plavix 75 mg daily. We will add Ecotrin 81 mg p.o. daily. We will also add Protonix 40 daily. The patient already on Unasyn 1 g q.6 hours antibiotic, lisinopril 2.5 mg p.o. daily, Carvedilol 3.125 b.i.d. We will repeat SMA-7 in the morning. Due to the patient's general status and dementia, the patient is not a candidate to do any invasive procedure at this point. We will treat him medically. We will follow closely with you. Moise Malave MD
[2016-11-22 07:41] LABS: BASO # 0.01 K/mm3 (0.0-2.0); BASO % 0.1 % (0.0-3.0); EOS # 0.1 (0.0-0.7); EOS % 1.7 % (1.5-5.0); GRAN # 5.43 (1.4-6.5); GRAN % 76.3 % (50.0-68.0); HEMATOCRIT 38.8 % (42.0-52.0); LYMPH % 13.9 % (22.0-35.0); MEAN CELL VOLUME 87.8 fl (80.0-105.0); MEAN CORPUSCULAR HEMOGLOBIN 29.6 pg (25.0-35.0); MEAN CORPUSCULAR HGB CONC 33.8 g/dl (31.0-37.0); MEAN PLATELET VOLUME 10.6 fl (7.0-11.0); MONO # 0.6 (0.1-0.6); RED CELL DISTRIBUTION WIDTH 18.2 % (11.5-14.5); WHITE BLOOD COUNT 7.1 10^3/ul (4.5-11.0)
[2016-11-22] MEDS: Potassium Chloride 20 mEq ER Tab PO SCH (08:14)
[2016-11-22] MEDS: Insulin Reg-LOW-Coverage SC SCH ×3 (08:15→16:28)
[2016-11-22 08:27] LABS: ALB/GLOB RATIO 0.9 (1.1-1.8); ALKALINE PHOSPHATASE 173 U/L (38-126); ALT/SGPT 164 U/L (7-56); AST/SGOT 78 U/L (17-59); BLOOD UREA NITROGEN 33 mg/dL (7-21); CALCIUM 8.5 mg/dL (8.4-10.5); CARBON DIOXIDE 28 mmol/L (21-33); CHLORIDE 100 mmol/L (95-110); GFR AFRICAN-AMERICAN > 60; GLUCOSE,RANDOM 96 mg/dL (70-110); MAGNESIUM 1.6 mg/dL (1.7-2.2); PHOSPHOROUS 3.2 mg/dL (2.5-4.5); POTASSIUM 3.5 mmol/L (3.6-5.0); SODIUM 137 mmol/L (132-148)
[2016-11-22] MEDS ORDERED: Potassium Chloride 20 mEq ER Tab PO ONE (09:58)
[2016-11-22] MEDS ORDERED: Magnesium Sulfate 1 gm in D5W 1 GM/100 ML BAG IVPB ONE (09:58)
[2016-11-22] MEDS: Magnesium Oxide 400 mg Tab UD PO SCH ×2 (10:59→18:30)
[2016-11-22] MEDS: Pantoprazole 40 mg EC Tab PO SCH (11:00)
--- NOTE | 2016-11-22 14:20 | PN ---
DATE: 11/22/2016 LOCATION: The patient is in room 577, bed 1. REASON FOR CONSULTATION: Coronary artery disease, CABG, CHF. SUBJECTIVE: The patient is lying comfortably in bed. Denies any chest pain or palpitation and shortness of breath is improving. PHYSICAL EXAMINATION: VITAL SIGNS: Blood pressure 141/91, earlier blood pressure was 103/70, respirations 22, pulse 89, and temperature 98.9. HEENT: Head is normocephalic. Eyes: Pupils normal and conjunctivae normal. Nose and throat normal. NECK: JVP slightly elevated. LUNGS: Few basal rales. CARDIOVASCULAR: S1 and S2. Systolic murmur. ABDOMEN: Soft. No tender. No organomegaly. Bowel sounds normal. EXTREMITIES: The patient has multiple bruises. Left leg has redness present. LABORATORY DATA: WBC is 7.1, hemoglobin 13.1, hematocrit 38.8. Sodium 137, potassium 3.5, creatinine 1.1, phosphorus 3.2, calcium 8.5, magnesium 1.6, total bilirubin 2.0, AST 78, ALT 164, alkaline phosphatase 173. Compared to 11/20, bilirubin and liver enzymes are decreasing. Total protein is 6.0, albumin 2.9. Echo on 09/03/2016 showed ejection fraction of 15% to 20%, severe aortic stenosis, aortic valve area 0.4 cm square, mild aortic regurgitation, moderate mitral regurgitation, moderate to severe tricuspid regurgitation with RVSP 74 mmHg suggestive of severe pulmonary hypertension. DIAGNOSES: Congestive heart failure, acute on chronic left ventricular systolic failure, cardiomyopathy, ischemic type; severe aortic stenosis, bicuspid valve; coronary artery disease, history of coronary bypass surgery; hypertension, diabetes, cerebrovascular accident with left residual weakness, altered mental status, dementia, abrasions on the legs probably related to falls at home, hypokalemia, and hypomagnesemia. PLAN: We will give additional potassium and we will give also IV magnesium. In the meantime, the patient put on Lasix 40 IV b.i.d., Aldactone 25 b.i.d., Plavix 75 daily, Ecotrin 81 mg daily, Protonix 40 daily, Carvedilol 3.125 b.i.d., lisinopril 2.5 mg daily. Liver enzymes are elevating probably related to passive hepatic venous congestion. We will repeat labs in the morning. We will follow. Moise Malave MD [facility] # [id number]
--- NOTE | 2016-11-22 15:40 | CP.PCM.PN ---
Subjective - Date & Time of Evaluation Date of Evaluation: 11/22/16 Time of Evaluation: 10:30 - Subjective Subjective: OOB in chair, NAD, no sob, no cp Objective - Vital Signs/Intake and Output Vital Signs (last 24 hours): Temp Pulse Resp BP Pulse Ox 98.9 F 85 22 102/68 95 11/22/16 07:00 11/22/16 11:00 11/22/16 07:00 11/22/16 11:00 11/22/16 07:00 Intake and Output: 11/22/16 11/22/16 06:59 18:59 Intake Total 540 640 Output Total 600 Balance -60 640 - Medications Medications: Current Medications Aspirin (Ecotrin) 81 mg PO DAILY [facility] Last Admin: 11/22/16 10:57 Dose: 81 mg Carvedilol (Coreg) 3.125 mg PO BID [facility] Last Admin: 11/22/16 10:57 Dose: 3.125 mg Clopidogrel Bisulfate (Plavix) 75 mg PO DAILY [facility] Last Admin: 11/22/16 11:00 Dose: 75 mg Furosemide (Lasix) 40 mg IVP BID [facility] Last Admin: 11/22/16 10:58 Dose: 40 mg Ampicillin Sodium/Sulbactam Sodium (Unasyn 1 Gm-0.5 Gm) 1 gm in 100 mls @ 100 mls/hr IVPB Q6H [facility] Last Admin: 11/22/16 11:00 Dose: 100 mls/hr Insulin Human Regular (Humulin R Low) 0 units SC ACHS [facility] PRN Reason: Protocol Last Admin: 11/22/16 12:06 Dose: 1 units Lisinopril (Zestril) 2.5 mg PO DAILY [facility] Last Admin: 11/22/16 11:00 Dose: 2.5 mg Magnesium Oxide (Mag-Ox) 400 mg PO BID [facility] Last Admin: 11/22/16 10:59 Dose: 400 mg Pantoprazole Sodium (Protonix Ec Tab) 40 mg PO DAILY [facility] Last Admin: 11/22/16 11:00 Dose: 40 mg Potassium Chloride (K-Dur 20 Meq Er Tab) 20 meq PO BRK [facility] Last Admin: 11/22/16 08:14 Dose: 20 meq Spironolactone (Aldactone) 25 mg PO BID [facility] Last Admin: 11/22/16 10:56 Dose: 25 mg - Labs Labs: 11/22/16 06:50 11/22/16 06:50 - Respiratory Exam Respiratory Exam: Rales - Cardiovascular Exam Cardiovascular Exam: REGULAR RHYTHM - GI/Abdominal Exam GI & Abdominal Exam: Soft, Normal Bowel Sounds - Extremities Exam Extremities Exam: Full ROM - Neurological Exam Neurological Exam: Altered - Skin Skin Exam: Dry, Warm Assessment and Plan (1) Cellulitis Status: Acute (2) Confusion Status: Acute (3) Transaminitis Status: Acute (4) CHF (congestive heart failure) Status: Acute (5) Coronary artery disease Assessment & Plan: Cardio consult appreciated, continue lasix, PT, sw for dc planning Status: Chronic
--- NOTE | 2016-11-22 15:42 | CP.PCM.PCO ---
Addendum Addendum: 11/22/16 15:42 Vadim Razo D.O. PGY-2, D.O. On Duty (D.O.O.D.) Arrived at bedside after overhead [employer] (s/p fall) paged. 76 year old male with increasing confusion, CHF, CAD, who upon trying to get up from a chair he walked a few feet and landed backwards on top of the ammunition components inspector. Patient per nursing staff at baseline level of confusion. Patient has multiple small scabs over his body which per nursing he picks at constantly. Patient at this time appears somewhat startled but otherwise has no complaints other than already present pain over left tibial plateau. BP 77/54 HR 69 RR 20 O2 Sat 92% on RA (pt had removed 2L NC) GEN WD, skinny elderly male, follows commands HEENT NC, AT, no bumps or bruises but does have scabbed area over left adventism, old, EOMI, PERRL Heart RRR Neuro awake, alert, oriented to self only (per nursing at baseline), follows simple and complex commands, speech appropriate, moves all extremities spontaneously and on command, 4+/5 BL professional services consultant, BI, TRI, HF strength, no hemineglect noted Ext multiple scabs as previously discussed, no new bruising, per one nurse his left knee had not been as red as it is currently, is tender, and erythematous compared to right side Skin scabs as described, otherwise no acute ecchymosses or otherwise Likely orthostatic episode causing witnessed mechanical fall, left leg swelling , erythema and tenderness Head CT ordered STAT as he did hit his head on the unit clerks knee Given unknown acuity of left pain, swelling and erythema of left will get left LE Doppler (reviewed doppler from 11/20 which were negative, however these physical exam findings are new) Given hypotension will hold next dose of lasix Discussed with nursing staff, will get vitals q30 mins for the next 2 hours and monitor BP Patient in bed in view of nursing station High fall risk Call placed to Dr. Maldonado, discussed over the phone
--- NOTE | 2016-11-22 17:09 | CT ---
PROCEDURE: CT HEAD WITHOUT CONTRAST. HISTORY: s/p fall COMPARISON: 11/20/2016 TECHNIQUE: Axial computed tomography images were obtained through the head/brain without intravenous contrast. Radiation dose: Total exam DLP = 1112 mGy-cm. This CT exam was performed using one or more of the following dose reduction techniques: Automated exposure control, adjustment of the mA and/or kV according to patient size, and/or use of iterative reconstruction technique. FINDINGS: HEMORRHAGE: No intracranial hemorrhage. BRAIN: No mass effect or edema. Large old left occipital and parietal lobe infarct. Right basal ganglial lacunar infarct. VENTRICLES: Unremarkable. No hydrocephalus. CALVARIUM: Unremarkable. PARANASAL SINUSES: Unremarkable as visualized. No significant inflammatory changes. MASTOID AIR CELLS: Unremarkable as visualized. No inflammatory changes. OTHER FINDINGS: None. IMPRESSION: Large old left occipital and parietal lobe infarct. Right basal ganglial lacunar infarct.
[2016-11-23 07:29] LABS: BASO # 0.02 K/mm3 (0.0-2.0); BASO % 0.2 % (0.0-3.0); EOS # 0.2 (0.0-0.7); EOS % 1.8 % (1.5-5.0); GRAN # 7.1 (1.4-6.5); GRAN % 76.3 % (50.0-68.0); HEMATOCRIT 42.7 % (42.0-52.0); LYMPH % 10.9 % (22.0-35.0); MEAN CELL VOLUME 88.2 fl (80.0-105.0); MEAN CORPUSCULAR HEMOGLOBIN 30.2 pg (25.0-35.0); MEAN CORPUSCULAR HGB CONC 34.2 g/dl (31.0-37.0); MEAN PLATELET VOLUME 11.1 fl (7.0-11.0); MONO % 10.8 % (1.0-6.0); RED CELL DISTRIBUTION WIDTH 18.4 % (11.5-14.5); WHITE BLOOD COUNT 9.3 10^3/ul (4.5-11.0)
[2016-11-23 07:50] LABS: BLOOD UREA NITROGEN 36 mg/dL (7-21); CALCIUM 8.7 mg/dL (8.4-10.5); CARBON DIOXIDE 26 mmol/L (21-33); CHLORIDE 100 mmol/L (98-107); GFR AFRICAN-AMERICAN > 60; GLUCOSE,RANDOM 122 mg/dL (70-110); MAGNESIUM 2.1 mg/dL (1.7-2.2); PHOSPHOROUS 3.3 mg/dL (2.5-4.5); POTASSIUM 4.5 mmol/L (3.6-5.0); SODIUM 139 mmol/L (132-148)
[2016-11-23] MEDS: Potassium Chloride 20 mEq ER Tab PO SCH (08:48)
[2016-11-23] MEDS: Insulin Reg-LOW-Coverage SC SCH ×5 (08:50→22:00)
[2016-11-23] MEDS: Magnesium Oxide 400 mg Tab UD PO SCH ×2 (10:08→17:54)
[2016-11-23] MEDS: Pantoprazole 40 mg EC Tab PO SCH (10:08)
[2016-11-23] MEDS ORDERED: Enoxaparin 30 mg Syringe SC SCH (12:30)
--- NOTE | 2016-11-23 13:53 | CP.PCM.PN ---
Subjective - Date & Time of Evaluation Date of Evaluation: 11/23/16 Time of Evaluation: 11:45 - Subjective Subjective: NAD, denies cp, no sob Objective - Vital Signs/Intake and Output Vital Signs (last 24 hours): Temp Pulse Resp BP Pulse Ox 97.3 F L 50 L 28 H 82/56 L 99 11/23/16 07:30 11/23/16 13:48 11/23/16 13:48 11/23/16 13:48 11/23/16 13:48 Intake and Output: 11/23/16 11/23/16 06:59 18:59 Intake Total 360 Output Total 550 Balance -190 - Medications Medications: Current Medications Aspirin (Ecotrin) 81 mg PO DAILY [facility] Last Admin: 11/23/16 10:07 Dose: 81 mg Carvedilol (Coreg) 3.125 mg PO BID [facility] Last Admin: 11/23/16 10:08 Dose: 3.125 mg Clopidogrel Bisulfate (Plavix) 75 mg PO DAILY [facility] Last Admin: 11/23/16 10:08 Dose: 75 mg Enoxaparin Sodium (Lovenox) 30 mg SC DAILY [facility] PRN Reason: Protocol Furosemide (Lasix) 40 mg IVP BID [facility] Last Admin: 11/23/16 13:15 Dose: Not Given Ampicillin Sodium/Sulbactam Sodium (Unasyn 1 Gm-0.5 Gm) 1 gm in 100 mls @ 100 mls/hr IVPB Q6 [facility] Last Admin: 11/23/16 13:15 Dose: 100 mls/hr Insulin Human Regular (Humulin R Low) 0 units SC ACHS [facility] PRN Reason: Protocol Last Admin: 11/23/16 13:25 Dose: 2 units Lisinopril (Zestril) 2.5 mg PO DAILY [facility] Last Admin: 11/23/16 10:08 Dose: 2.5 mg Magnesium Oxide (Mag-Ox) 400 mg PO BID [facility] Last Admin: 11/23/16 10:08 Dose: 400 mg Pantoprazole Sodium (Protonix Ec Tab) 40 mg PO DAILY [facility] Last Admin: 11/23/16 10:08 Dose: 40 mg Potassium Chloride (K-Dur 20 Meq Er Tab) 20 meq PO BRK [facility] Last Admin: 11/23/16 08:48 Dose: 20 meq Spironolactone (Aldactone) 25 mg PO BID [facility] Last Admin: 11/23/16 10:07 Dose: 25 mg - Labs Labs: 11/23/16 07:14 11/23/16 07:14 - Respiratory Exam Respiratory Exam: Rales - Cardiovascular Exam Cardiovascular Exam: REGULAR RHYTHM, Murmur - GI/Abdominal Exam GI & Abdominal Exam: Soft, Normal Bowel Sounds - Extremities Exam Extremities Exam: Normal Inspection - Neurological Exam Neurological Exam: Altered - Skin Additional comments: decreased redness and swelling of left leg Assessment and Plan (1) Cellulitis Status: Acute (2) Confusion Status: Acute (3) Transaminitis Status: Acute (4) CHF (congestive heart failure) Status: Acute (5) Coronary artery disease Assessment & Plan: continue IV Unasyn, cardiology follow-up, PT, SW for d/c planning Status: Chronic
[2016-11-23] MEDS ORDERED: DOPamine 400mg/250ml D5W 400 MG/250 ML BAG IV PRN (15:04)
[2016-11-23] MEDS ORDERED: DOBUTamine 500mg/250ml D5W 500 MG/250 ML BAG ONE (15:10)
[2016-11-23] MEDS ORDERED: DOBUTamine 500mg/250ml D5W 500 MG/250 ML BAG IV PRN ×2 (15:10→15:21)
[2016-11-23 15:13] LABS: ARTERIAL BLOOD GAS HCO3 22.6 mmol/L (21-28); ARTERIAL BLOOD GAS PH 7.35 (7.35-7.45)
[2016-11-23 15:30] LABS: BASO # 0.01 K/mm3 (0.0-2.0); BASO % 0.1 % (0.0-3.0); EOS # 0.1 (0.0-0.7); EOS % 1.2 % (1.5-5.0); GRAN # 6.63 (1.4-6.5); GRAN % 79.6 % (50.0-68.0); HEMATOCRIT 42.2 % (42.0-52.0); LYMPH % 11.4 % (22.0-35.0); MEAN CELL VOLUME 89.4 fl (80.0-105.0); MEAN CORPUSCULAR HEMOGLOBIN 30.3 pg (25.0-35.0); MEAN CORPUSCULAR HGB CONC 33.9 g/dl (31.0-37.0); MEAN PLATELET VOLUME 10.8 fl (7.0-11.0); MONO # 0.6 (0.1-0.6); MONO % 7.7 % (1.0-6.0); RED CELL DISTRIBUTION WIDTH 18.7 % (11.5-14.5); WHITE BLOOD COUNT 8.3 10^3/ul (4.5-11.0)
--- NOTE | 2016-11-23 15:32 | PCM.RRT ---
Addendum entered and electronically signed by Julisa Brown DO 11/23/16 17:35 : Attending provider, Dr. Maldonado and next of kin, Tracy Connolly notified of [facility]PER and transfer to ICU. Original Note: <EVERARDO BERRY - Last Filed: 11/23/16 15:43> [facility] Nurse Assessment - Situation Date: 11/23/16 Time [facility] was called: 14:25 [facility] Responder Arrival Time: 14:28 [facility] Location:: [address] [place] [address] Room Number: [id number] [facility] Reason for Call: Bradycardia, Hypotension, O2 Saturation below 90%, Change in Mental Status, Looks Sicker [facility] Called By: RN, Physician - IV IV Inserted during [facility]?: Yes IV Fluids Initiated During [facility]FFER [facility]?: 500 ml NS Bolus - Respiratory Oxygen Delivery Method: Non Rebreather @% Oxygen Flow Rate: 10 Received Nebulizer Treatments:: No Was the Patient Ventilated with Bag/Mask 100% O2?: Yes Secretions Suctioned?: No Was the Patient Intubated?: No Was the Patient Placed on a Ventilator?: No - Diagnostic Test Ordered EKG: Yes Chest X-Ray: Yes CT Scan: No - Stat Labs Ordered [facility] Stat Labs Ordered: CBC, BMP, TROPONIN, LACTIC ACID, ABG CPR started during BUFFER [facility]PER?: No - Vital Signs Vital Sign: Rapid Response Vital Sign Blood Pressure 85/57 Pulse Rate 45 Respiratory Rate 16 Temperature 95.3 F Oxygen Saturation 99 - Finger Stick Blood Glucose Finger Stick Blood Glucose: 217 - [place] Coma Scale Coma Scale Eye Opening: Spontaneous - Sepsis Screen Part 1 Sepsis Screen Part 1: Hypotensive, Temperature under 96.8F - Time [facility] Ended Time [facility] Ended: 14:45 - Vital Signs at end of [facility] Vital Signs at end of [facility]: Rapid Response End Vital Sign Blood Pressure 88/55 Pulse Rate 40 Respiratory Rate 16 - Recommendations 5) [facility] Level of Care Recommendations: Transfer to ICU Notifications: Attending Physician I.Reason for [facility]PER - A) Acute Change in Patient: (Select all that apply): Staff member or family is worried about patient, Acute change in heart rate less than 50 or greater than 120 - Neurological Status (Select all that apply): Alert, Responsive, Lethargic, Weakness - Respiratory Oxygen Delivery Method: Non Rebreather @% Oxygen Flow Rate: 10 - Constitutional Appears: In Acute Distress (acute resp distress, and restless), Older Than Stated Age, Cachectic - Head Head Exam: NORMAL INSPECTION - Eyes Eye Exam: EOMI, Normal appearance, PERRL - Respiratory Exam Respiratory Exam: Accessory Muscle Use, Rales, Wheezes, Respiratory Distress Additional comments: JVD noted - Cardiovascular Exam Cardiovascular Exam: Bradycardia, REGULAR RHYTHM Additional comments: midline thoracic scar from old CABG - GI/Abdominal Exam GI & Abdominal Exam: Soft, Normal Bowel Sounds. absent: Distended - Neurological Exam Neurological Exam: Alert, Awake - Extremities Exam Extremities Exam: absent: Pedal Edema Additional comments: b/l LE lesions on ant shins Plan - Assessment of Findings&Treatment Plan [facility] was called for pt Ze Larkin and [facility] team responded stat. In attendance was Dr. Ingram, Dr. Laith Chisholm and the residents front elevator operator. BUFFER COPPER was called due to patient being hypotensive, bradycardeic and w/ concern for altered mental status. Patient was noted to be to be pale, and gasping for air w/ use of accessory muscle. Pt has hx of CHF w/ EF <20%, CAD s/p CABG and DM2 but is admitted for r/o cellulitis. Vitals were as noted above, but patient remained alert and oriented throughout code. CXR was at bedside and was taken. EKG was done. ABG shock panel, CBC, CMP, BNP, troponin I, Mg and Phos were also ordered. Pt was noted to be using accessory muscles, and gasping for air, and so was started on NC at 2L then increased to ventimask @ 10L. Pt received 500cc NS bolus, but BP remained low and pt was still edwige. It was decided that pt would be taken to ICU and was accepted by Dr. Balderas. Pt was transferred down by resident and team of nurses and endorsed to the ICU staff. Pt is stable at end of [facility] and will receive further care by ICU staff. <Lisa Chihsolm B - Last Filed: 11/24/16 15:42> BUFFER [facility] Nurse Assessment - Vital Signs Vital Sign: Rapid Response Vital Sign Blood Pressure 85/57 Pulse Rate 45 Respiratory Rate 16 Temperature 95.3 F Oxygen Saturation 99 - Vital Signs at end of [facility] Vital Signs at end of [facility]: Rapid Response End Vital Sign Blood Pressure 88/55 Pulse Rate 40 Respiratory Rate 16 Attending/Attestation - Attestation I have personally seen and examined this patient.: Yes I have fully participated in the care of the patient.: Yes I have reviewed all pertinent clinical information, including history, physical exam and plan: Yes
[2016-11-23 15:49] LABS: ALKALINE PHOSPHATASE 181 U/L (38-126); ALT/SGPT 148 U/L (7-56); AST/SGOT 58 U/L (17-59); BILIRUBIN,TOTAL 1.4 mg/dL (0.2-1.3); BLOOD UREA NITROGEN 37 mg/dL (7-21); CALCIUM 8.4 mg/dL (8.4-10.5); CARBON DIOXIDE 25 mmol/L (21-33); CHLORIDE 100 mmol/L (98-107); GFR AFRICAN-AMERICAN 60; GLUCOSE,RANDOM 166 mg/dL (70-110); MAGNESIUM 2.2 mg/dL (1.7-2.2); PHOSPHOROUS 3.6 mg/dL (2.5-4.5); POTASSIUM 4.7 mmol/L (3.6-5.0); SODIUM 137 mmol/L (132-148); TOTAL PROTEIN 6.4 g/dL (5.8-8.3)
--- NOTE | 2016-11-23 16:08 | CP.PCM.CON ---
History of Present Illness - History of Present Illness History of Present Illness: CRITICAL CARE CONSULT NOTE HPI: Patient is 76yo male with PMX of CVA, HTN, DM, CABG, CHF EF 14% August 2016, admitted for CHF exacerbation and Cellulitis. Earlier this afternoon G[employer] WORK[employer] called for SOB, hypotension SBP 70s, HR 40s SB, given IVF 500cc bolus x 1, transferred to MICU. CUrrently the patient is awake, alert, on BIPAP, comfortable, on Bopamine (titrating off) and Dobutamine drip. Denies any major complaints PMhx: as per HPi PSHx: As per HPI Allergies: NKDA FHx: NC ROS: (-)SOB, CP, Palpitations, VALENTE, fever, chills, cough Review of Systems - Review of Systems Review of Systems: as per HPI Past Patient History - Infectious Disease Hx of Infectious Diseases: None - Tetanus Immunizations Tetanus Immunization: >10 years Ago - Past Social History Smoking Status: Former Smoker - CARDIAC Hx Cardiac Disorders: Yes (CAD s/p bypass x 3) Hx Congestive Heart Failure: Yes Hx Hypertension: Yes - NEUROLOGICAL HX Cerebrovascular Accident: Yes - HEENT Hx HEENT Problems: Yes (visual changes) - RENAL Hx Chronic Kidney Disease: No - ENDOCRINE/METABOLIC Hx Diabetes Mellitus Type 2: Yes - INTEGUMENTARY Hx Dermatological Problems: No - MUSCULOSKELETAL/RHEUMATOLOGICAL Hx Falls: Yes - PSYCHIATRIC Hx Substance Use: No - SURGICAL HISTORY Hx Open Heart Surgery: Yes - ANESTHESIA Hx Anesthesia Reactions: No Meds Allergies/Adverse Reactions: Allergies Allergy/AdvReac Type Severity Reaction Status Date / Time No Known Allergies Allergy Verified 11/20/16 16:47 - Medications Medications: Current Medications Aspirin (Ecotrin) 81 mg PO DAILY [facility] Last Admin: 11/23/16 10:07 Dose: 81 mg Clopidogrel Bisulfate (Plavix) 75 mg PO DAILY [facility] Last Admin: 11/23/16 10:08 Dose: 75 mg Enoxaparin Sodium (Lovenox) 30 mg SC DAILY [facility] PRN Reason: Protocol Furosemide (Lasix) 40 mg IVP BID [facility] Last Admin: 11/23/16 13:15 Dose: Not Given Dopamine HCl/Dextrose (Dopamine 400mg/250ml D5w) 400 mg in 250 mls @ 16.67 mls/ hr IV .Q15H PRN; Protocol; 7 MCG/KG/MIN PRN Reason: TITRATE PER MD ORDER Dobutamine HCl/Dextrose (Dobutamine/Dextrose 5% 500mg/250ml) 500 mg in 250 mls @ 9.525 mls/hr IV .Q24H PRN; Protocol; 5 MCG/KG/MIN PRN Reason: TITRATE PER PROTOCOL Vancomycin HCl (Vancomycin 1gm) 1 gm in 250 mls @ 167 mls/hr IVPB DAILY [facility] PRN Reason: Protocol Insulin Human Regular (Humulin R Low) 0 units SC ACHS [facility] PRN Reason: Protocol Last Admin: 11/23/16 13:25 Dose: 2 units Lisinopril (Zestril) 2.5 mg PO DAILY [facility] Last Admin: 11/23/16 10:08 Dose: 2.5 mg Magnesium Oxide (Mag-Ox) 400 mg PO BID [facility] Last Admin: 11/23/16 10:08 Dose: 400 mg Pantoprazole Sodium (Protonix Ec Tab) 40 mg PO DAILY [facility] Last Admin: 11/23/16 10:08 Dose: 40 mg Potassium Chloride (K-Dur 20 Meq Er Tab) 20 meq PO BRK [facility] Last Admin: 11/23/16 08:48 Dose: 20 meq Spironolactone (Aldactone) 25 mg PO BID [facility] Last Admin: 11/23/16 10:07 Dose: 25 mg Physical Exam - Constitutional Appears: Well, Non-toxic, No Acute Distress - Head Exam Head Exam: NORMAL INSPECTION - Eye Exam Eye Exam: Normal appearance - ENT Exam ENT Exam: Mucous Membranes Moist - Neck Exam Neck exam: Positive for: Normal Inspection - Respiratory Exam Respiratory Exam: Rales, NORMAL BREATHING PATTERN - Cardiovascular Exam Cardiovascular Exam: JVD, RRR, +S1, +S2 - GI/Abdominal Exam GI & Abdominal Exam: Normal Bowel Sounds, Soft - Extremities Exam Extremities exam: Positive for: pedal pulses present - Psychiatric Exam Psychiatric exam: Normal Mood - Skin Skin Exam: Normal Color Results - Vital Signs Recent Vital Signs: Last Vital Signs Temp 97.3 F L 11/23/16 07:30 Pulse 48 L 11/23/16 15:21 Resp 28 H 11/23/16 13:48 BP 107/72 11/23/16 15:31 Pulse Ox 99 11/23/16 13:48 - Labs Result Diagrams: 11/23/16 15:10 11/23/16 07:14 Labs: Laboratory Results - last 24 hr 11/22/16 11/23/16 11/23/16 21:13 07:14 07:14 WBC 9.3 D RBC 4.84 Hgb 14.6 Hct 42.7 MCV 88.2 MCH 30.2 MCHC 34.2 RDW 18.4 H Plt Count 169 MPV 11.1 H Gran % 76.3 H Lymph % (Auto) 10.9 L Pierce % (Auto) 10.8 H Eos % (Auto) 1.8 Baso % (Auto) 0.2 Gran # 7.10 H Lymph # 1.0 L Pierce # 1.0 H Eos # 0.2 Baso # 0.02 pCO2 pO2 HCO3 ABG pH ABG Total CO2 ABG O2 Saturation ABG Base Excess ABG Potassium Glucose Lactate FiO2 Sodium 139 Potassium 4.5 Chloride 100 Carbon Dioxide 26 Anion Gap 18 BUN 36 H Creatinine 1.2 Est GFR ( Amer) > 60 Est GFR (Non-Af Amer) 59 POC Glucose (mg/dL) 174 H Random Glucose 122 H Calcium 8.7 Phosphorus 3.3 Magnesium 2.1 Arterial Blood Potassium 11/23/16 11/23/16 11/23/16 07:32 11:16 14:30 WBC RBC Hgb Hct MCV MCH MCHC RDW Plt Count MPV Gran % Lymph % (Auto) Pierce % (Auto) Eos % (Auto) Baso % (Auto) Gran # Lymph # Pierce # Eos # Baso # pCO2 pO2 HCO3 ABG pH ABG Total CO2 ABG O2 Saturation ABG Base Excess ABG Potassium Glucose Lactate FiO2 Sodium Potassium Chloride Carbon Dioxide Anion Gap BUN Creatinine Est GFR ( Amer) Est GFR (Non-Af Amer) POC Glucose (mg/dL) 125 H 244 H 217 H Random Glucose Calcium Phosphorus Magnesium Arterial Blood Potassium 11/23/16 11/23/16 15:05 15:10 WBC 8.3 RBC 4.72 Hgb 14.3 Hct 42.2 MCV 89.4 MCH 30.3 MCHC 33.9 RDW 18.7 H Plt Count 160 MPV 10.8 Gran % 79.6 H Lymph % (Auto) 11.4 L Pierce % (Auto) 7.7 H Eos % (Auto) 1.2 L Baso % (Auto) 0.1 Gran # 6.63 H Lymph # 1.0 L Pierce # 0.6 Eos # 0.1 Baso # 0.01 pCO2 41 pO2 383.0 H HCO3 22.6 ABG pH 7.35 ABG Total CO2 23.9 ABG O2 Saturation 100.0 H ABG Base Excess -2.9 L ABG Potassium 4.7 Glucose 166 H Lactate 2.0 FiO2 100.0 Sodium 133.0 Potassium Chloride 103.0 Carbon Dioxide Anion Gap BUN Creatinine Est GFR ( Amer) Est GFR (Non-Af Amer) POC Glucose (mg/dL) Random Glucose Calcium Phosphorus Magnesium Arterial Blood Potassium 4.7 - EKG Data EKG comments: SB with 1st deg block, inferior infarct unchanged, NSST changes Assessment & Plan - Assessment and Plan (Free Text) Assessment: 76yo male a/w CHF exacerbation, cardiogenic shock, SOB Cardiogenic SHock Acute decompesanted CHF Exacerbation, EF 14% SOB Volume overload CABG/CAD Hx CVA - currently afebrile, HD stable, on Dobutamine 7mcg/kg/min, titrating off Dopamine, BP 107/72, HR 70s, Sinus - On exam, comfortable on BIPAP 10/5/50%, b/l rales on exam - Given lasix 40mg IV x 1 - CXR with volume overload - CE pending, BMP pending Recommend: - cont with BIPAP 10/5/50%, ABG with good oxygenation, no evidence of hypercapnia, pCO2 41 - Cellulitis, siwtch Unasyn to Vanco IV - panculture, check procalcitonin - cont with Dobutamine, titrate of Dopamine - IV diuresis, Lasix - Statin, ASA - Hold Coreg - Imdur 30mg daily - follow up repeat ECHO - follow up Cardiology, Dr Garnica - FS control - follow up CE, BMP - monitor K, Mg - DVT ppx Critical Care time: 40 minutes
[2016-11-23 16:14] LABS: TROPONIN I < 0.01 ng/mL
[2016-11-23] MEDS: DOBUTamine 500mg/250ml D5W 500 MG/250 ML BAG IV PRN (16:21)
[2016-11-23] MEDS: DOPamine 400mg/250ml D5W 400 MG/250 ML BAG IV PRN (16:22)
[2016-11-23] MEDS: Vancomycin 1gm in NS 250ml 1 GM/250 ML BAG IVPB SCH (16:29)
--- NOTE | 2016-11-23 17:31 | RAD ---
HISTORY: SOB, h/o chf COMPARISON: 11/20/2016 FINDINGS: LUNGS: Mild central pulmonary vascular congestive changes with bilateral effusions. Questionable bibasilar atelectasis and/or infiltrates. PLEURA: No significant pleural effusion identified, no pneumothorax apparent. CARDIOVASCULAR: Marked cardiomegaly. OSSEOUS STRUCTURES: No significant abnormalities. VISUALIZED UPPER ABDOMEN: Normal. OTHER FINDINGS: None. IMPRESSION: Mild central pulmonary vascular congestive changes with bilateral effusions. Questionable bibasilar atelectasis and/or infiltrates.
[2016-11-24] MEDS: Potassium Chloride 20 mEq ER Tab PO SCH (08:53)
[2016-11-24] MEDS: Insulin Reg-LOW-Coverage SC SCH ×4 (08:54→22:17)
[2016-11-24 09:57] LABS: BASO # 0.01 K/mm3 (0.0-2.0); BASO % 0.1 % (0.0-3.0); EOS # 0.1 (0.0-0.7); EOS % 0.9 % (1.5-5.0); GRAN # 6.48 (1.4-6.5); GRAN % 81.9 % (50.0-68.0); HEMATOCRIT 39.2 % (42.0-52.0); LYMPH # 0.8 (1.2-3.4); LYMPH % 9.6 % (22.0-35.0); MEAN CELL VOLUME 88.5 fl (80.0-105.0); MEAN CORPUSCULAR HEMOGLOBIN 30.7 pg (25.0-35.0); MEAN CORPUSCULAR HGB CONC 34.7 g/dl (31.0-37.0); MEAN PLATELET VOLUME 10.1 fl (7.0-11.0); MONO # 0.6 (0.1-0.6); MONO % 7.5 % (1.0-6.0); RED CELL DISTRIBUTION WIDTH 18.8 % (11.5-14.5); WHITE BLOOD COUNT 7.9 10^3/ul (4.5-11.0)
[2016-11-24] MEDS: Vancomycin 1gm in NS 250ml 1 GM/250 ML BAG IVPB SCH (10:04)
[2016-11-24] MEDS: Pantoprazole 40 mg EC Tab PO SCH (10:04)
[2016-11-24] MEDS: Magnesium Oxide 400 mg Tab UD PO SCH ×2 (10:05→17:21)
--- NOTE | 2016-11-24 10:07 | RAD ---
HISTORY: CHF COMPARISON: Comparison chest 11/23/2016 FINDINGS: LUNGS: Mild diffuse pulmonary vascular congestive changes with suspected bilateral lower lobe alveolar-type infiltrates. Additionally, bilateral layering effusions are present. PLEURA: No significant pleural effusion identified, no pneumothorax apparent. CARDIOVASCULAR: Heart size stable. . OSSEOUS STRUCTURES: No significant abnormalities. VISUALIZED UPPER ABDOMEN: Normal. OTHER FINDINGS: None. IMPRESSION: Mild diffuse pulmonary vascular congestive changes with suspected bilateral lower lobe alveolar-type infiltrates. Additionally, bilateral layering effusions are present.
[2016-11-24 10:12] LABS: BLOOD UREA NITROGEN 36 mg/dL (7-21); CALCIUM 8.6 mg/dL (8.4-10.5); CARBON DIOXIDE 22 mmol/L (21-33); CHLORIDE 101 mmol/L (98-107); GFR AFRICAN-AMERICAN > 60; GLUCOSE,RANDOM 138 mg/dL (70-110); POTASSIUM 4.9 mmol/L (3.6-5.0); SODIUM 134 mmol/L (132-148)
[2016-11-24 10:23] LABS: TROPONIN I 0.02 ng/mL
[2016-11-24] MEDS: DOBUTamine 500mg/250ml D5W 500 MG/250 ML BAG IV PRN (10:32)
[2016-11-24] MEDS: DOPamine 400mg/250ml D5W 400 MG/250 ML BAG IV PRN (10:34)
--- NOTE | 2016-11-24 10:56 | PN ---
REASON FOR CONSULTATION: Followup of coronary artery disease with CABG and CHF. OBJECTIVE: GENERAL: Lying flat on the bed, not in apparent distress. No new complaints. VITAL SIGNS: Temperature afebrile, heart rate . HEENT: PERRLA. Extraocular muscles are intact. NECK: Supple. No carotid bruit. No thyromegaly. CHEST: Clear to auscultation. HEART: S1 and S2 regular. ABDOMEN: Soft. EXTREMITIES: Clubbing and cyanosis are negative. LABORATORY DATA: Blood workup as follows: WBC 9.3, hemoglobin 14, hematocrit 42.7, platelet count 169. Chemistries showed sodium 137, potassium 4.2, chloride 100, carbon dioxide 26, anion gap of 15, BUN of 36, creatinine of 1.2. IMPRESSION: A 76-year-old male with past medical history significant for coronary artery disease, coronary artery bypass grafting, chronic heart failure, cardiomyopathy ischemic, severe aortic stenosis, bicuspid aortic valve, coronary artery bypass, hypertension, hyperlipidemia, cerebrovascular accident with left-sided weakness, altered mental status, electrolyte imbalance. RECOMMENDATION: Supplement electrolytes as needed. Continue Aldactone, continue Plavix, continue Ecotrin, continue Coreg, continue lisinopril. Monitor electrolytes and supplement as needed. We will follow with you. Continue IV Lasix. We will repeat the labs on Friday. We will put on DVT prophylaxis to prevent PE as the patient is set up for DVT/PE and history of ischemic cardiomyopathy as well. Most recent echo on 09/03/2016 shows ejection fraction 15-20%, severe aortic stenosis valve area of 0.4 cm sq, mild aortic regurgitation, [id number] tricuspid regurgitation, RV systolic pressure 74. Thank you for providing opportunity in taking care of the patient, Trae Kunz. We will follow with you. Moise Garnica MD
--- NOTE | 2016-11-24 11:42 | CP.PCM.PN ---
Subjective - Date & Time of Evaluation Date of Evaluation: 11/24/16 Time of Evaluation: 10:30 - Subjective Subjective: feels better, denies cp, no sob Objective - Vital Signs/Intake and Output Vital Signs (last 24 hours): Temp Pulse Resp BP Pulse Ox 96.7 F L 61 17 95/34 L 100 11/23/16 20:00 11/24/16 10:34 11/24/16 04:10 11/24/16 10:34 11/24/16 04:10 Intake and Output: 11/24/16 11/24/16 06:59 18:59 Intake Total 745 430 Output Total 730 Balance 15 430 - Medications Medications: Current Medications Aspirin (Ecotrin) 81 mg PO DAILY [facility] Last Admin: 11/24/16 10:05 Dose: 81 mg Atorvastatin Calcium (Lipitor) 40 mg PO DIN [facility] Last Admin: 11/23/16 16:47 Dose: Not Given Clopidogrel Bisulfate (Plavix) 75 mg PO DAILY [facility] Last Admin: 11/24/16 10:05 Dose: 75 mg Furosemide (Lasix) 40 mg IVP BID [facility] Last Admin: 11/23/16 17:57 Dose: 40 mg Heparin Sodium (Porcine) (Heparin) 5,000 units SC Q12 [facility] PRN Reason: Protocol Last Admin: 11/24/16 10:05 Dose: 5,000 units Dopamine HCl/Dextrose (Dopamine 400mg/250ml D5w) 400 mg in 250 mls @ 16.67 mls/ hr IV .Q15H PRN; Protocol; 7 MCG/KG/MIN PRN Reason: TITRATE PER MD ORDER Last Admin: 11/24/16 10:34 Dose: 5 mcg/kg/min, 11.907 mls/hr Dobutamine HCl/Dextrose (Dobutamine/Dextrose 5% 500mg/250ml) 500 mg in 250 mls @ 9.525 mls/hr IV .Q24H PRN; Protocol; 5 MCG/KG/MIN PRN Reason: TITRATE PER PROTOCOL Last Admin: 11/24/16 10:32 Dose: 7 mcg/kg/min, 13.336 mls/hr Vancomycin HCl (Vancomycin 1gm) 1 gm in 250 mls @ 167 mls/hr IVPB DAILY [facility] PRN Reason: Protocol Last Admin: 11/24/16 10:04 Dose: 167 mls/hr Insulin Human Regular (Humulin R Low) 0 units SC ACHS [facility] PRN Reason: Protocol Last Admin: 11/24/16 08:54 Dose: Not Given Lisinopril (Zestril) 2.5 mg PO DAILY [facility] Last Admin: 11/23/16 10:08 Dose: 2.5 mg Magnesium Oxide (Mag-Ox) 400 mg PO BID [facility] Last Admin: 11/24/16 10:05 Dose: 400 mg Pantoprazole Sodium (Protonix Ec Tab) 40 mg PO DAILY [facility] Last Admin: 11/24/16 10:04 Dose: 40 mg Potassium Chloride (K-Dur 20 Meq Er Tab) 20 meq PO BRK [facility] Last Admin: 11/24/16 08:53 Dose: 20 meq Spironolactone (Aldactone) 25 mg PO BID [facility] Last Admin: 11/24/16 10:05 Dose: 25 mg - Labs Labs: 11/24/16 09:30 11/24/16 09:30 - Respiratory Exam Respiratory Exam: Rales - Cardiovascular Exam Cardiovascular Exam: REGULAR RHYTHM, Murmur - GI/Abdominal Exam GI & Abdominal Exam: Soft, Normal Bowel Sounds - Extremities Exam Extremities Exam: Normal Inspection - Back Exam Back Exam: NORMAL INSPECTION - Neurological Exam Neurological Exam: Altered - Skin Skin Exam: Dry, Warm Assessment and Plan (1) Cellulitis Status: Acute (2) Confusion Status: Acute (3) Transaminitis Status: Acute (4) CHF (congestive heart failure) Status: Acute (5) Coronary artery disease Status: Chronic - Assessment and Plan (Free Text) Plan: continue ICU monitoring, pressors, lasix, cardiology f/u, prognosis guarded
--- NOTE | 2016-11-24 12:20 | CP.PCM.PN ---
Subjective - Date & Time of Evaluation Date of Evaluation: 11/24/16 Time of Evaluation: 09:15 - Subjective Subjective: CRITICAL CARE PROGRESS NOTE Patient seen and examined. Reports no major complaints. Currently on 2LNC, sat 98%, comfortable, off BIPAP Patient denies fever, chills, cough, chest pain, sob, palpitations. Currently on Dobutamine and Dopamine, cardiology following, repeat ECHO pending. Objective - Vital Signs/Intake and Output Vital Signs (last 24 hours): Temp Pulse Resp BP Pulse Ox 98 F 69 23 98/58 L 100 11/24/16 11:51 11/24/16 11:45 11/24/16 11:45 11/24/16 11:37 11/24/16 11:40 Intake and Output: 11/24/16 11/24/16 06:59 18:59 Intake Total 745 430 Output Total 730 Balance 15 430 - Medications Medications: Current Medications Aspirin (Ecotrin) 81 mg PO DAILY [facility] Last Admin: 11/24/16 10:05 Dose: 81 mg Atorvastatin Calcium (Lipitor) 40 mg PO DIN [facility] Last Admin: 11/23/16 16:47 Dose: Not Given Clopidogrel Bisulfate (Plavix) 75 mg PO DAILY [facility] Last Admin: 11/24/16 10:05 Dose: 75 mg Furosemide (Lasix) 40 mg IVP BID [facility] Last Admin: 11/24/16 11:37 Dose: 40 mg Heparin Sodium (Porcine) (Heparin) 5,000 units SC Q12 [facility] PRN Reason: Protocol Last Admin: 11/24/16 10:05 Dose: 5,000 units Dopamine HCl/Dextrose (Dopamine 400mg/250ml D5w) 400 mg in 250 mls @ 16.67 mls/ hr IV .Q15H PRN; Protocol; 7 MCG/KG/MIN PRN Reason: TITRATE PER MD ORDER Last Admin: 11/24/16 10:34 Dose: 5 mcg/kg/min, 11.907 mls/hr Dobutamine HCl/Dextrose (Dobutamine/Dextrose 5% 500mg/250ml) 500 mg in 250 mls @ 9.525 mls/hr IV .Q24H PRN; Protocol; 5 MCG/KG/MIN PRN Reason: TITRATE PER PROTOCOL Last Admin: 11/24/16 10:32 Dose: 7 mcg/kg/min, 13.336 mls/hr Vancomycin HCl (Vancomycin 1gm) 1 gm in 250 mls @ 167 mls/hr IVPB DAILY [facility] PRN Reason: Protocol Last Admin: 11/24/16 10:04 Dose: 167 mls/hr Insulin Human Regular (Humulin R Low) 0 units SC ACHS [facility] PRN Reason: Protocol Last Admin: 11/24/16 11:47 Dose: 1 units Lisinopril (Zestril) 2.5 mg PO DAILY [facility] Last Admin: 11/23/16 10:08 Dose: 2.5 mg Magnesium Oxide (Mag-Ox) 400 mg PO BID [facility] Last Admin: 11/24/16 10:05 Dose: 400 mg Pantoprazole Sodium (Protonix Ec Tab) 40 mg PO DAILY [facility] Last Admin: 11/24/16 10:04 Dose: 40 mg Potassium Chloride (K-Dur 20 Meq Er Tab) 20 meq PO BRK [facility] Last Admin: 11/24/16 08:53 Dose: 20 meq Spironolactone (Aldactone) 25 mg PO BID [facility] Last Admin: 11/24/16 10:05 Dose: 25 mg - Labs Labs: 11/24/16 09:30 11/24/16 09:30 - Constitutional Appears: Well, Non-toxic - Head Exam Head Exam: NORMAL INSPECTION - Eye Exam Eye Exam: Normal appearance - ENT Exam ENT Exam: Mucous Membranes Moist - Respiratory Exam Respiratory Exam: Clear to Ausculation Bilateral, NORMAL BREATHING PATTERN - Cardiovascular Exam Cardiovascular Exam: REGULAR RHYTHM, RRR, +S1, +S2 - GI/Abdominal Exam GI & Abdominal Exam: Soft, Normal Bowel Sounds - Extremities Exam Extremities Exam: Normal Inspection - Neurological Exam Neurological Exam: Alert, Awake - Skin Skin Exam: Normal Color, Warm Assessment and Plan - Assessment and Plan (Free Text) Assessment: 76yo male a/w CHF exacerbation, cardiogenic shock, SOB Cardiogenic SHock, resolving Acute decompesanted CHF Exacerbation, EF 14% SOB Volume overload CABG/CAD Hx CVA - currently afebrile, HD stable, on Dobutamine 7 mcg/kg/min, titrating off Dopamine, currently on Dopamine 5mcg/kg/min, BP 98/60, HR 70s, Sinus - On exam, comfortable on 2LNC, sat 98%, tolerating PO diet - CXR with volume overload, improving - CE neg Recommend: - cont with supp O2, BIPAP PRN - Cellulitis, Vanco IV - panculture, check procalcitonin - cont with Dobutamine, titrate of Dopamine - IV diuresis, Lasix - DC ACEI - Statin, ASA - Hold Coreg - Imdur 30mg daily - follow up repeat ECHO - follow up Cardiology, Dr Garnica - FS control - monitor K, Mg - DVT ppx - GI ppx Critical Care time: 35 minutes
--- NOTE | 2016-11-24 13:40 | CARD ---
APPROVED REPORT EKG Measurement Heart [id number] <Conclusion> Sinus rhythm with occasional premature ventricular complexes Inferior infarct, age undetermined Abnormal ECG
--- NOTE | 2016-11-24 13:46 | CARD ---
APPROVED REPORT EKG Measurement Heart [id number] <Conclusion> Marked sinus bradycardia with sinus arrhythmia with 1st degree AV block Possible Left atrial enlargement Inferior infarct, age undetermined Anterolateral infarct, age undetermined Abnormal ECG
[2016-11-25 07:01] LABS: ALB/GLOB RATIO 1.1 (1.1-1.8); ALKALINE PHOSPHATASE 189 U/L (38-126); ALT/SGPT 105 U/L (7-56); AST/SGOT 36 U/L (17-59); BILIRUBIN,TOTAL 1.7 mg/dL (0.2-1.3); BLOOD UREA NITROGEN 33 mg/dL (7-21); CARBON DIOXIDE 28 mmol/L (21-33); CHLORIDE 97 mmol/L (98-107); GFR AFRICAN-AMERICAN > 60; GLUCOSE,RANDOM 140 mg/dL (70-110); MAGNESIUM 2.1 mg/dL (1.7-2.2); PHOSPHOROUS 3.9 mg/dL (2.5-4.5); POTASSIUM 4.8 mmol/L (3.6-5.0); SODIUM 135 mmol/L (132-148)
[2016-11-25 07:13] LABS: BASO # 0.01 K/mm3 (0.0-2.0); BASO % 0.1 % (0.0-3.0); EOS # 0.1 (0.0-0.7); EOS % 1.3 % (1.5-5.0); GRAN # 6.07 (1.4-6.5); GRAN % 80.8 % (50.0-68.0); HEMATOCRIT 42.5 % (42.0-52.0); LYMPH # 0.7 (1.2-3.4); LYMPH % 8.9 % (22.0-35.0); MEAN CELL VOLUME 88.4 fl (80.0-105.0); MEAN CORPUSCULAR HEMOGLOBIN 29.9 pg (25.0-35.0); MEAN CORPUSCULAR HGB CONC 33.9 g/dl (31.0-37.0); MEAN PLATELET VOLUME 10.7 fl (7.0-11.0); MONO # 0.7 (0.1-0.6); MONO % 8.9 % (1.0-6.0); RED CELL DISTRIBUTION WIDTH 18.7 % (11.5-14.5); WHITE BLOOD COUNT 7.5 10^3/ul (4.5-11.0)
[2016-11-25] MEDS: Insulin Reg-LOW-Coverage SC SCH ×4 (07:30→21:46)
--- NOTE | 2016-11-25 09:27 | PN ---
DATE: 11/24/2016 REASON OF THE CONSULTATION: Followup coronary artery disease, CABG, severe aortic stenosis, status post rapid response, hypotension, bradycardic. SUBJECTIVE: Event noted since the patient last seen. Now, the patient is awake and alert, on beckie, wanted to get this beckie out. I discussed in length long-term management about for possible TAVR and cardiac catheterization, the patient does not want. Awake and alert. OBJECTIVE: Lying flat, not in apparent distress. PHYSICAL EXAMINATION: VITAL SIGNS: Temperature afebrile, heart rate , blood pressure 108/70. HEENT: PERRLA intact. NECK: Supple. No carotid bruit or thyromegaly. CHEST: Clear to auscultation. HEART: S1 and S2. ABDOMEN: Soft. EXTREMITIES: Clubbing and cyanosis negative. LABORATORY DATA: Blood workup as follows: WBC 7.9, hemoglobin 13.2, hematocrit 39.2, platelet count 148. Chemistries showed sodium 139, potassium 4.9, chloride 101, carbon dioxide of 22, anion gap of 15, BUN of 36, and creatinine 1.2. BNP 38,300. Troponin 0.01 and 0.02. EKG shows normal sinus, left atrial block, inferior wall FL, poor R-wave progression, no acute ST-T changes noted. IMPRESSION: A 76-year-old male with past medical history significant for coronary artery disease, coronary artery bypass graft, aortic stenosis, severely decreased ejection fraction 15%, cerebrovascular accident, diabetes, hypertension, hyperlipidemia, admitted with congestive heart failure on the floor. Yesterday, the patient in afternoon had a rapid response because of the low blood pressure and bradycardia, moved to ICU, started on dopamine and dobutamine, responded to IV fluid, now is much awake and alert. Last echo of the patient 09/03/2016, shows ejection fraction 15% to 20%, severe aortic stenosis value at 0.4 centimeter square, moderate mitral regurgitation and [id number] tricuspid regurgitation, RV systolic pressure 74 suggest severe pulmonary hypertension. Now, the patient is much awake and alert, off Dobutrex, currently on dopamine, renal doses. RECOMMENDATIONS: Continue gentle diuretics. Continue low-dose lisinopril. Continue Lasix. We will start Coreg as blood pressure is tolerated. Try to wean off dopamine and dobutamine. DVT prophylaxis. Discussed with the patient in length reference cardiac catheterization and possible TAVR evaluation. The patient does not want anything to be done, wanted to go to [facility] and does not want any aggressive , just wanted medical treat and wanted to get out of the ICU. I will discuss with DNR/DNI. For now, aggressive medical treatment. We will follow with you. I repeat the lab in the morning. If remains stable, we will transfer out to [facility], discuss with Dr. 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 We will get the blood workup today. So far, the blood workup is pending. I will follow with you. So far, no evidence of acute FL. Moise Garnica MD
[2016-11-25] MEDS: Pantoprazole 40 mg EC Tab PO SCH (10:02)
[2016-11-25] MEDS: Vancomycin 1gm in NS 250ml 1 GM/250 ML BAG IVPB SCH (10:02)
[2016-11-25] MEDS: Magnesium Oxide 400 mg Tab UD PO SCH ×2 (10:03→18:43)
[2016-11-25] MEDS: Potassium Chloride 20 mEq ER Tab PO SCH (10:14)
--- NOTE | 2016-11-25 13:26 | CP.PCM.PN ---
Subjective - Date & Time of Evaluation Date of Evaluation: 11/25/16 Time of Evaluation: 08:00 - Subjective Subjective: CRITICAL CARE PROGRESS NOTE Patient seen and examined, reports to be doing well. Denies cp, sob, palpitations, VALENTE, dizziness. Reports he wants to eat. No other constitutional symptoms. Patient off Dopamine gtt, on Dobutamine drip at 7mcg/kg/min, BP stable , HR stable 50-60s. Objective - Vital Signs/Intake and Output Vital Signs (last 24 hours): Temp Pulse Resp BP Pulse Ox 97.3 F L 54 L 24 71/35 L 98 11/25/16 00:00 11/25/16 11:40 11/25/16 11:40 11/25/16 11:00 11/25/16 10:00 Intake and Output: 11/25/16 11/25/16 06:59 18:59 Intake Total 335 Output Total 350 Balance -15 - Medications Medications: Current Medications Aspirin (Ecotrin) 81 mg PO DAILY [facility] Last Admin: 11/25/16 10:03 Dose: 81 mg Atorvastatin Calcium (Lipitor) 40 mg PO DIN [facility] Last Admin: 11/23/16 16:47 Dose: Not Given Clopidogrel Bisulfate (Plavix) 75 mg PO DAILY [facility] Last Admin: 11/25/16 10:02 Dose: 75 mg Furosemide (Lasix) 40 mg PO DAILY [facility] Heparin Sodium (Porcine) (Heparin) 5,000 units SC Q12 [facility] PRN Reason: Protocol Last Admin: 11/25/16 10:04 Dose: 5,000 units Dopamine HCl/Dextrose (Dopamine 400mg/250ml D5w) 400 mg in 250 mls @ 16.67 mls/ hr IV .Q15H PRN; Protocol; 7 MCG/KG/MIN PRN Reason: TITRATE PER MD ORDER Last Admin: 11/24/16 10:34 Dose: 5 mcg/kg/min, 11.907 mls/hr Dobutamine HCl/Dextrose (Dobutamine/Dextrose 5% 500mg/250ml) 500 mg in 250 mls @ 9.525 mls/hr IV .Q24H PRN; Protocol; 5 MCG/KG/MIN PRN Reason: TITRATE PER PROTOCOL Last Admin: 11/24/16 10:32 Dose: 7 mcg/kg/min, 13.336 mls/hr Vancomycin HCl (Vancomycin 1gm) 1 gm in 250 mls @ 167 mls/hr IVPB DAILY [facility] PRN Reason: Protocol Last Admin: 11/25/16 10:02 Dose: 167 mls/hr Insulin Human Regular (Humulin R Low) 0 units SC ACHS [facility] PRN Reason: Protocol Last Admin: 11/25/16 07:30 Dose: Not Given Lisinopril (Zestril) 2.5 mg PO DAILY [facility] Last Admin: 11/23/16 10:08 Dose: 2.5 mg Magnesium Oxide (Mag-Ox) 400 mg PO BID [facility] Last Admin: 11/25/16 10:03 Dose: 400 mg Pantoprazole Sodium (Protonix Ec Tab) 40 mg PO DAILY [facility] Last Admin: 11/25/16 10:02 Dose: 40 mg Potassium Chloride (K-Dur 20 Meq Er Tab) 20 meq PO BRK [facility] Last Admin: 11/25/16 10:14 Dose: Not Given Spironolactone (Aldactone) 25 mg PO BID [facility] Last Admin: 11/25/16 10:22 Dose: Not Given - Labs Labs: 11/25/16 05:15 11/25/16 05:15 - Constitutional Appears: Well, Non-toxic, No Acute Distress - Head Exam Head Exam: ATRAUMATIC - Eye Exam Eye Exam: EOMI - ENT Exam ENT Exam: Mucous Membranes Moist - Neck Exam Neck Exam: Full ROM - Respiratory Exam Respiratory Exam: Clear to Ausculation Bilateral, NORMAL BREATHING PATTERN - Cardiovascular Exam Cardiovascular Exam: REGULAR RHYTHM, +S1, +S2 - GI/Abdominal Exam GI & Abdominal Exam: Soft, Normal Bowel Sounds - Extremities Exam Extremities Exam: Pedal Edema - Neurological Exam Neurological Exam: Alert, Awake, Oriented x3 Assessment and Plan - Assessment and Plan (Free Text) Assessment: 76yo male a/w CHF exacerbation, cardiogenic shock, SOB Cardiogenic Shock, resolved Acute decompesanted CHF Exacerbation, EF 14% SOB Volume overload CABG/CAD Hx CVA - currently afebrile, HD stable, on Dobutamine 7 mcg/kg/min, off Dopamine, BP 90/60, HR 60s, Sinus - On exam, comfortable on 2LNC, sat 98%, tolerating PO diet - CE neg x 2 - repeat ECHO pending Recommend: - cont with supp O2, BIPAP PRN - Cellulitis, Vanco IV - cont with Dobutamine, fixed dose - switch to PO Lasix - Statin, ASA - Hold Coreg - Imdur 30mg daily - follow up repeat ECHO - follow up Cardiology, Dr Garnica - FS control - monitor K, Mg - DVT ppx - GI ppx - transfer to telemetry stable
--- NOTE | 2016-11-25 13:47 | CP.PCM.PN ---
Subjective - Date & Time of Evaluation Date of Evaluation: 11/25/16 Time of Evaluation: 09:30 - Subjective Subjective: NAD, remains somewhat confused Objective - Vital Signs/Intake and Output Vital Signs (last 24 hours): Temp Pulse Resp BP Pulse Ox 97.3 F L 54 L 24 71/35 L 98 11/25/16 00:00 11/25/16 11:40 11/25/16 11:40 11/25/16 11:00 11/25/16 10:00 Intake and Output: 11/25/16 11/25/16 06:59 18:59 Intake Total 335 Output Total 350 Balance -15 - Medications Medications: Current Medications Aspirin (Ecotrin) 81 mg PO DAILY [facility] Last Admin: 11/25/16 10:03 Dose: 81 mg Atorvastatin Calcium (Lipitor) 40 mg PO DIN [facility] Last Admin: 11/23/16 16:47 Dose: Not Given Clopidogrel Bisulfate (Plavix) 75 mg PO DAILY [facility] Last Admin: 11/25/16 10:02 Dose: 75 mg Furosemide (Lasix) 40 mg PO DAILY [facility] Heparin Sodium (Porcine) (Heparin) 5,000 units SC Q12 [facility] PRN Reason: Protocol Last Admin: 11/25/16 10:04 Dose: 5,000 units Dopamine HCl/Dextrose (Dopamine 400mg/250ml D5w) 400 mg in 250 mls @ 16.67 mls/ hr IV .Q15H PRN; Protocol; 7 MCG/KG/MIN PRN Reason: TITRATE PER MD ORDER Last Admin: 11/24/16 10:34 Dose: 5 mcg/kg/min, 11.907 mls/hr Dobutamine HCl/Dextrose (Dobutamine/Dextrose 5% 500mg/250ml) 500 mg in 250 mls @ 9.525 mls/hr IV .Q24H PRN; Protocol; 5 MCG/KG/MIN PRN Reason: TITRATE PER PROTOCOL Last Admin: 11/24/16 10:32 Dose: 7 mcg/kg/min, 13.336 mls/hr Vancomycin HCl (Vancomycin 1gm) 1 gm in 250 mls @ 167 mls/hr IVPB DAILY [facility] PRN Reason: Protocol Last Admin: 11/25/16 10:02 Dose: 167 mls/hr Insulin Human Regular (Humulin R Low) 0 units SC ACHS [facility] PRN Reason: Protocol Last Admin: 11/25/16 07:30 Dose: Not Given Lisinopril (Zestril) 2.5 mg PO DAILY [facility] Last Admin: 11/23/16 10:08 Dose: 2.5 mg Magnesium Oxide (Mag-Ox) 400 mg PO BID [facility] Last Admin: 11/25/16 10:03 Dose: 400 mg Pantoprazole Sodium (Protonix Ec Tab) 40 mg PO DAILY [facility] Last Admin: 11/25/16 10:02 Dose: 40 mg Potassium Chloride (K-Dur 20 Meq Er Tab) 20 meq PO BRK [facility] Last Admin: 11/25/16 10:14 Dose: Not Given Spironolactone (Aldactone) 25 mg PO BID [facility] Last Admin: 11/25/16 10:22 Dose: Not Given - Labs Labs: 11/25/16 05:15 11/25/16 05:15 - Respiratory Exam Respiratory Exam: Rales - Cardiovascular Exam Cardiovascular Exam: REGULAR RHYTHM, Murmur - GI/Abdominal Exam GI & Abdominal Exam: Soft, Normal Bowel Sounds - Extremities Exam Extremities Exam: Normal Inspection - Neurological Exam Neurological Exam: Altered - Skin Skin Exam: Dry, Normal Color Assessment and Plan (1) Cellulitis Status: Resolved (2) Confusion Status: Acute (3) Transaminitis Status: Acute (4) CHF (congestive heart failure) Status: Acute (5) Coronary artery disease Status: Chronic - Assessment and Plan (Free Text) Plan: medically stable for transfer to telemetry, continue cardiology f/u, SW for disposition
--- NOTE | 2016-11-25 17:43 | PN ---
DATE: 11/25/2016 REASON OF THE CONSULTATION: Followup coronary artery disease, CABG, severe aortic stenosis, status post rapid response, hypotension, tachycardia. SUBJECTIVE: Lying flat in the bed, not in apparent distress. OBJECTIVE: GENERAL: Lying flat in the bed; not in apparent distress. PHYSICAL EXAMINATION: VITAL SIGNS: Temperature is afebrile, heart rate 62, blood pressure 100/80. HEENT: PERRLA, intact. NECK: Supple. No carotid bruits or thyromegaly. CHEST: Clear to auscultation. HEART: S1 and S2 regular. ABDOMEN: Soft. EXTREMITIES: Clubbing and cyanosis negative. LABORATORY DATA: Blood workup as follows: WBC 7.5, hemoglobin 14.5, hematocrit of 42.5, and platelet count 166. Chemistry showed sodium of 135, potassium of 4.0, chloride of 97, carbon dioxide 28, anion gap of 15, BUN of 33, and creatinine of 1.3. IMPRESSION: A 76-year-old male with past medical history significant for coronary artery disease, severe aortic stenosis, ejection fraction 15%, status post coronary artery bypass graft many years ago, cerebrovascular accident, diabetes, hypertension, hyperlipidemia, admitted with congestive heart failure day before, yesterday, the patient with rapid response, bradycardiac, after that moved to the ICU, responded to dopamine, dobutamine, IV fluid. Last echo dated 09/03/2016 shows ejection fraction 15% to 20%, severe aortic stenosis value at 0.4 centimeter square, moderate mitral regurgitation and [id number] tricuspid regurgitation, RV systolic pressure 74. Now, the patient is awake, alert. Yesterday, discussed at length with the patient about the TAVR procedure. The patient does not want anything to be done, wanted to go to [facility]; states that I want to go [facility]; I do not want any procedure, so medical team recommended now continue dopamine, wean off dobutamine as tolerated; gentle diuretics; DVT prophylaxis; continue aspirin, Plavix; continue Lasix; continue spironolactone; continue lisinopril, the patient will be added on Coreg, medical treatment. Overall, the patient's clinical skilled nursing prognosis is guarded. Consider DNR/DNI. We will follow up with you. Thank you Joel for providing opportunity in taking care of the patient. Moise Garnica MD [facility] # [id number]
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
[2016-11-26 07:03] LABS: EOS % 0.6 % (1.5-5.0); GRAN # 5.5 (1.4-6.5); GRAN % 80.2 % (50.0-68.0); LYMPH # 0.7 (1.2-3.4); LYMPH % 10.1 % (22.0-35.0); MEAN CELL VOLUME 88.7 fl (80.0-105.0); MEAN CORPUSCULAR HEMOGLOBIN 29.7 pg (25.0-35.0); MEAN CORPUSCULAR HGB CONC 33.5 g/dl (31.0-37.0); MEAN PLATELET VOLUME 10.9 fl (7.0-11.0); MONO # 0.6 (0.1-0.6); MONO % 9.1 % (1.0-6.0); RED CELL DISTRIBUTION WIDTH 18.9 % (11.5-14.5); WHITE BLOOD COUNT 6.9 10^3/ul (4.5-11.0)
[2016-11-26 07:27] LABS: ALB/GLOB RATIO 1.1 (1.1-1.8); ALKALINE PHOSPHATASE 172 U/L (38-126); ALT/SGPT 97 U/L (7-56); AST/SGOT 30 U/L (17-59); BILIRUBIN,TOTAL 1.9 mg/dL (0.2-1.3); BLOOD UREA NITROGEN 30 mg/dL (7-21); CARBON DIOXIDE 27 mmol/L (21-33); CHLORIDE 97 mmol/L (98-107); GFR AFRICAN-AMERICAN > 60; GLUCOSE,RANDOM 116 mg/dL (70-110); MAGNESIUM 2.2 mg/dL (1.7-2.2); PHOSPHOROUS 3.6 mg/dL (2.5-4.5); POTASSIUM 4.9 mmol/L (3.6-5.0); SODIUM 134 mmol/L (132-148); TOTAL PROTEIN 6.7 g/dL (5.8-8.3)
--- NOTE | 2016-11-26 08:46 | CP.PCM.PN ---
Subjective - Date & Time of Evaluation Date of Evaluation: 11/26/16 Time of Evaluation: 08:40 - Subjective Subjective: OOB in chair, NAD, denies cp or sob Objective - Vital Signs/Intake and Output Vital Signs (last 24 hours): Temp Pulse Resp BP Pulse Ox 98 F 61 18 148/67 77 L 11/26/16 00:00 11/26/16 03:50 11/26/16 03:50 11/26/16 04:00 11/26/16 03:50 - Medications Medications: Current Medications Aspirin (Ecotrin) 81 mg PO DAILY [facility] Last Admin: 11/25/16 10:03 Dose: 81 mg Atorvastatin Calcium (Lipitor) 40 mg PO DIN [facility] Last Admin: 11/23/16 16:47 Dose: Not Given Clopidogrel Bisulfate (Plavix) 75 mg PO DAILY [facility] Last Admin: 11/25/16 10:02 Dose: 75 mg Furosemide (Lasix) 40 mg PO DAILY [facility] Last Admin: 11/25/16 15:58 Dose: 40 mg Heparin Sodium (Porcine) (Heparin) 5,000 units SC Q12 [facility] PRN Reason: Protocol Last Admin: 11/25/16 21:42 Dose: 5,000 units Dopamine HCl/Dextrose (Dopamine 400mg/250ml D5w) 400 mg in 250 mls @ 16.67 mls/ hr IV .Q15H PRN; Protocol; 7 MCG/KG/MIN PRN Reason: TITRATE PER MD ORDER Last Admin: 11/24/16 10:34 Dose: 5 mcg/kg/min, 11.907 mls/hr Dobutamine HCl/Dextrose (Dobutamine/Dextrose 5% 500mg/250ml) 500 mg in 250 mls @ 9.525 mls/hr IV .Q24H PRN; Protocol; 5 MCG/KG/MIN PRN Reason: TITRATE PER PROTOCOL Last Admin: 11/24/16 10:32 Dose: 7 mcg/kg/min, 13.336 mls/hr Vancomycin HCl (Vancomycin 1gm) 1 gm in 250 mls @ 167 mls/hr IVPB DAILY [facility] PRN Reason: Protocol Last Admin: 11/25/16 10:02 Dose: 167 mls/hr Insulin Human Regular (Humulin R Low) 0 units SC ACHS [facility] PRN Reason: Protocol Last Admin: 11/25/16 21:46 Dose: Not Given Lisinopril (Zestril) 2.5 mg PO DAILY [facility] Last Admin: 11/23/16 10:08 Dose: 2.5 mg Magnesium Oxide (Mag-Ox) 400 mg PO BID [facility] Last Admin: 11/25/16 18:43 Dose: 400 mg Pantoprazole Sodium (Protonix Ec Tab) 40 mg PO DAILY [facility] Last Admin: 11/25/16 10:02 Dose: 40 mg Potassium Chloride (K-Dur 20 Meq Er Tab) 20 meq PO BRK [facility] Last Admin: 11/25/16 10:14 Dose: Not Given Spironolactone (Aldactone) 25 mg PO BID [facility] Last Admin: 11/25/16 18:42 Dose: Not Given - Labs Labs: 11/26/16 06:33 11/26/16 06:33 - Respiratory Exam Respiratory Exam: Clear to Ausculation Bilateral, NORMAL BREATHING PATTERN - Cardiovascular Exam Cardiovascular Exam: REGULAR RHYTHM, Murmur - GI/Abdominal Exam GI & Abdominal Exam: Soft, Normal Bowel Sounds - Extremities Exam Extremities Exam: Normal Inspection - Neurological Exam Neurological Exam: Altered - Skin Skin Exam: Dry, Warm Assessment and Plan (1) Cellulitis Status: Resolved (2) Confusion Status: Acute (3) Transaminitis Status: Acute (4) CHF (congestive heart failure) Status: Acute (5) Coronary artery disease Status: Chronic - Assessment and Plan (Free Text) Plan: PT, cardiology f/u, SW for dc planning
[2016-11-26] MEDS: Insulin Reg-LOW-Coverage SC SCH ×4 (09:59→21:58)
[2016-11-26] MEDS: Potassium Chloride 20 mEq ER Tab PO SCH (10:14)
[2016-11-26] MEDS: Pantoprazole 40 mg EC Tab PO SCH (10:15)
[2016-11-26] MEDS: Magnesium Oxide 400 mg Tab UD PO SCH ×2 (10:15→17:00)
--- NOTE | 2016-11-26 13:17 | PN ---
DATE: 11/26/2016 REASON FOR CONSULTATION AND FOLLOWUP: Coronary artery disease, CABG, severe aortic insufficiency status post rapid response, hypotension, bradycardia on Dobutrex. SUBJECTIVE: Denies any chest pain, shortness of breath, any palpitations, want to get out of unit. OBJECTIVE: GENERAL: Lying flat in the bed, not in apparent distress, wanted to go to the floor or get out of the ICU. VITAL SIGNS: As follows; temperature afebrile, heart rate 56, blood pressure 94/54. HEENT: PERRLA. Extraocular muscles intact. NECK: Supple. No carotid bruits. No thyromegaly. CHEST: Clear to auscultation. HEART: S1 and S2 regular. ABDOMEN: Soft. EXTREMITIES: Clubbing and cyanosis negative. LABORATORY DATA: Blood workup as follows; WBC 6.8, hemoglobin 13.1, hematocrit 40.4, platelet count 155. Chemistry shows sodium 130, potassium 4.9, chloride 97, carbon dioxide 27, anion gap of 15, BUN 30, creatinine 1.3. IMPRESSION: Hypotension, bradycardia, severe aortic stenosis, cardiomyopathy status post coronary artery bypass surgery, was on Dobutrex. Last echo 09/03/2016 showed the ejection of 15 to 20%. Severe aortic stenosis, ejection fraction of 15 to 20%. Severe aortic stenosis value at 0.4 cm square, moderate mitral regurgitation and moderate to severe tricuspid regurgitation, RV systolic pressure 74. I discussed in length with the patient yesterday, the patient does not want any invasive procedure or wanted to be medically treated. RECOMMENDATIONS: We will wean off Dobutrex. Continue heparin, continue Plavix, continue lisinopril. Followup after holding the Dobutrex wean off if the patient remains significant bradycardic consider pacemaker, but we will monitor closely. We will get EKG today. Further recommendations during the hospitalization. We will follow with you. We will assess the need for pacemaker. It is okay to wean off the Dobutrex and transfer to telemetry. Moise Garnica MD
--- NOTE | 2016-11-26 20:29 | CP.PCM.PN ---
Subjective - Date & Time of Evaluation Date of Evaluation: 11/26/16 Time of Evaluation: 20:29 - Subjective Subjective: Patient was seen at bedside because nurse had requested 1:1 order. Patient is not answering any questions. Medical record was reviewed. This 76 year old male was admitted with increased edema, swelling and redness of legs, cellulitis, hypokalemia,transaminitis. Has PMH of CHF, CAD, S/P CABG, DM II. Objective - Vital Signs/Intake and Output Vital Signs (last 24 hours): Temp Pulse Resp BP Pulse Ox 96.9 F L 59 L 16 108/92 H 97 11/26/16 12:00 11/26/16 13:20 11/26/16 13:20 11/26/16 13:00 11/26/16 12:30 Intake and Output: 11/26/16 11/27/16 18:59 06:59 Intake Total 109 720 Output Total 100 Balance 109 620 - Medications Medications: Current Medications Aspirin (Ecotrin) 81 mg PO DAILY [facility] Last Admin: 11/26/16 10:14 Dose: 81 mg Atorvastatin Calcium (Lipitor) 40 mg PO DIN [facility] Last Admin: 11/23/16 16:47 Dose: Not Given Clopidogrel Bisulfate (Plavix) 75 mg PO DAILY [facility] Last Admin: 11/26/16 10:15 Dose: 75 mg Furosemide (Lasix) 40 mg PO DAILY [facility] Last Admin: 11/26/16 10:15 Dose: 40 mg Heparin Sodium (Porcine) (Heparin) 5,000 units SC Q12 [facility] PRN Reason: Protocol Last Admin: 11/26/16 10:14 Dose: 5,000 units Dopamine HCl/Dextrose (Dopamine 400mg/250ml D5w) 400 mg in 250 mls @ 16.67 mls/ hr IV .Q15H PRN; Protocol; 7 MCG/KG/MIN PRN Reason: TITRATE PER MD ORDER Last Admin: 11/24/16 10:34 Dose: 5 mcg/kg/min, 11.907 mls/hr Dobutamine HCl/Dextrose (Dobutamine/Dextrose 5% 500mg/250ml) 500 mg in 250 mls @ 9.525 mls/hr IV .Q24H PRN; Protocol; 5 MCG/KG/MIN PRN Reason: TITRATE PER PROTOCOL Last Titration: 11/26/16 10:56 Dose: 7 mcg/kg/min, 13.336 mls/hr Insulin Human Regular (Humulin R Low) 0 units SC ACHS [facility] PRN Reason: Protocol Last Admin: 11/26/16 16:51 Dose: Not Given Lisinopril (Zestril) 2.5 mg PO DAILY [facility] Last Admin: 11/23/16 10:08 Dose: 2.5 mg Magnesium Oxide (Mag-Ox) 400 mg PO BID [facility] Last Admin: 11/26/16 17:00 Dose: 400 mg Pantoprazole Sodium (Protonix Ec Tab) 40 mg PO DAILY [facility] Last Admin: 11/26/16 10:15 Dose: 40 mg Potassium Chloride (K-Dur 20 Meq Er Tab) 20 meq PO BRK [facility] Last Admin: 11/26/16 10:14 Dose: 20 meq Spironolactone (Aldactone) 25 mg PO BID [facility] Last Admin: 11/26/16 17:00 Dose: 25 mg - Labs Labs: 11/26/16 06:33 11/26/16 06:33 - Constitutional Appears: Well, No Acute Distress - Head Exam Head Exam: ATRAUMATIC, NORMAL INSPECTION, NORMOCEPHALIC - Eye Exam Eye Exam: Normal appearance - ENT Exam ENT Exam: Normal Exam - Neck Exam Neck Exam: Normal Inspection - Respiratory Exam Respiratory Exam: NORMAL BREATHING PATTERN - Cardiovascular Exam Cardiovascular Exam: absent: JVD - GI/Abdominal Exam GI & Abdominal Exam: absent: Distended - Rectal Exam Rectal Exam: Deferred - Exam Additional comments: Deferred. - Extremities Exam Additional comments: Both legs swelling, redness positive. - Back Exam Back Exam: NORMAL INSPECTION Assessment and Plan - Assessment and Plan (Free Text) Assessment: Agitation. CHF. Cellulitis. CAD. CABG. DM II. Plan: 1:1 observation order entered. Continue present management.
--- NOTE | 2016-11-26 22:43 | CARD ---
APPROVED REPORT EKG Measurement Heart [id number] <Conclusion> Sinus bradycardia Inferior infarct, age undetermined T wave abnormality, consider lateral ischemia Abnormal ECG
[2016-11-27] MEDS: DOBUTamine 500mg/250ml D5W 500 MG/250 ML BAG IV PRN (01:22)
[2016-11-27 08:02] LABS: ALB/GLOB RATIO 1.1 (1.1-1.8); ALKALINE PHOSPHATASE 167 U/L (38-126); ALT/SGPT 75 U/L (7-56); AST/SGOT 33 U/L (17-59); BILIRUBIN,TOTAL 2.4 mg/dL (0.2-1.3); BLOOD UREA NITROGEN 29 mg/dL (7-21); CARBON DIOXIDE 22 mmol/L (21-33); CHLORIDE 97 mmol/L (98-107); GFR AFRICAN-AMERICAN > 60; GLUCOSE,RANDOM 99 mg/dL (70-110); MAGNESIUM 2.3 mg/dL (1.7-2.2); PHOSPHOROUS 3.7 mg/dL (2.5-4.5); POTASSIUM 5.2 mmol/L (3.6-5.0); SODIUM 131 mmol/L (132-148); TOTAL PROTEIN 6.9 g/dL (5.8-8.3)
[2016-11-27] MEDS: Insulin Reg-LOW-Coverage SC SCH ×3 (08:10→22:22)
[2016-11-27] MEDS: Potassium Chloride 20 mEq ER Tab PO SCH (08:13)
[2016-11-27 08:43] LABS: BASO # 0.01 K/mm3 (0.0-2.0); BASO % 0.1 % (0.0-3.0); EOS % 0.5 % (1.5-5.0); GRAN # 5.78 (1.4-6.5); GRAN % 79.3 % (50.0-68.0); HEMATOCRIT 37.2 % (42.0-52.0); LYMPH # 0.7 (1.2-3.4); LYMPH % 9.7 % (22.0-35.0); MEAN CELL VOLUME 88.4 fl (80.0-105.0); MEAN CORPUSCULAR HEMOGLOBIN 29.7 pg (25.0-35.0); MEAN CORPUSCULAR HGB CONC 33.6 g/dl (31.0-37.0); MEAN PLATELET VOLUME 10.1 fl (7.0-11.0); MONO # 0.8 (0.1-0.6); MONO % 10.4 % (1.0-6.0); RED CELL DISTRIBUTION WIDTH 18.6 % (11.5-14.5); WHITE BLOOD COUNT 7.3 10^3/ul (4.5-11.0)
[2016-11-27] MEDS: Magnesium Oxide 400 mg Tab UD PO SCH ×2 (10:03→17:43)
[2016-11-27] MEDS: Pantoprazole 40 mg EC Tab PO SCH (10:03)
--- NOTE | 2016-11-27 13:31 | PN ---
DATE OF SERVICE: 11/27/2016 REASON FOR CONSULTATION: Followup, coronary artery disease, CABG, severe aortic stenosis, status post rapid response, hypotension, bradycardia, on Dobutrex, severely decreased LV function. SUBJECTIVE: The patient denies any chest pain, shortness of breath, or any palpitation. OBJECTIVE: GENERAL: On soft Jesús restraint, leather restraint. VITAL SIGNS: Temperature afebrile, heart rate 59, blood pressure 130/80. HEENT: PERRLA. Extraocular muscles intact. NECK: Supple. No carotid bruits or thyromegaly. CHEST: Clear to auscultation. HEART: S1 and S2 regular. ABDOMEN: Soft. EXTREMITIES: Clubbing and cyanosis negative. LABORATORY DATA: WBC 7.3, hemoglobin 12.5, hematocrit 37.2, platelet count 130. Chemistry shows sodium 131, potassium 5.2, chloride 97, carbon dioxide 22, anion gap of 17, BUN 23, creatinine 1.7. IMPRESSION: Decompensated congestive heart failure, acute on chronic, secondary to systolic dysfunction, severe aortic stenosis, history of coronary artery bypass surgery, last echo on 09/03/2016, ejection fraction 15%-20%, valve area 0.4 cm2, severe aortic stenosis, moderate mitral regurgitation, moderate tricuspid regurgitation. I discussed with the patient. The patient does not want cardiac catheterization or any aggressive test for transcatheter aortic valve replacement. RECOMMENDATIONS: Continue wean off Dobutrex if blood pressure is tolerated. Continue baby aspirin. Continue DVT prophylaxis, subcutaneous heparin. Overall, the patient's condition is critical. Long-term prognosis is extremely guarded and poor. Moise Garnica MD
--- NOTE | 2016-11-27 16:46 | CP.PCM.PN ---
Subjective - Date & Time of Evaluation Date of Evaluation: 11/27/16 Time of Evaluation: 09:00 - Subjective Subjective: NAD, no co, no sob Objective - Vital Signs/Intake and Output Vital Signs (last 24 hours): Temp Pulse Resp BP Pulse Ox 97.8 F 57 L 22 105/62 86 L 11/27/16 12:00 11/27/16 11:20 11/27/16 11:20 11/27/16 11:00 11/27/16 10:01 Intake and Output: 11/27/16 11/27/16 06:59 18:59 Intake Total 1021 500 Output Total 100 100 Balance 921 400 - Medications Medications: Current Medications Aspirin (Ecotrin) 81 mg PO DAILY [facility] Last Admin: 11/27/16 10:03 Dose: 81 mg Atorvastatin Calcium (Lipitor) 40 mg PO DIN [facility] Last Admin: 11/23/16 16:47 Dose: Not Given Clopidogrel Bisulfate (Plavix) 75 mg PO DAILY [facility] Last Admin: 11/27/16 10:11 Dose: 75 mg Furosemide (Lasix) 40 mg PO DAILY [facility] Last Admin: 11/27/16 10:02 Dose: 40 mg Heparin Sodium (Porcine) (Heparin) 5,000 units SC Q12 [facility] PRN Reason: Protocol Last Admin: 11/27/16 10:01 Dose: 5,000 units Dopamine HCl/Dextrose (Dopamine 400mg/250ml D5w) 400 mg in 250 mls @ 16.67 mls/ hr IV .Q15H PRN; Protocol; 7 MCG/KG/MIN PRN Reason: TITRATE PER MD ORDER Last Admin: 11/24/16 10:34 Dose: 5 mcg/kg/min, 11.907 mls/hr Insulin Human Regular (Humulin R Low) 0 units SC ACHS [facility] PRN Reason: Protocol Last Admin: 11/27/16 11:50 Dose: Not Given Lisinopril (Zestril) 2.5 mg PO DAILY [facility] Last Admin: 11/23/16 10:08 Dose: 2.5 mg Magnesium Oxide (Mag-Ox) 400 mg PO BID [facility] Last Admin: 11/27/16 10:03 Dose: 400 mg Pantoprazole Sodium (Protonix Ec Tab) 40 mg PO DAILY [facility] Last Admin: 11/27/16 10:03 Dose: 40 mg Potassium Chloride (K-Dur 20 Meq Er Tab) 20 meq PO BRK [facility] Last Admin: 11/27/16 08:13 Dose: 20 meq - Labs Labs: 11/27/16 08:30 11/27/16 06:30 - Respiratory Exam Respiratory Exam: Clear to Ausculation Bilateral, NORMAL BREATHING PATTERN - Cardiovascular Exam Cardiovascular Exam: REGULAR RHYTHM - GI/Abdominal Exam GI & Abdominal Exam: Soft, Normal Bowel Sounds - Extremities Exam Extremities Exam: Normal Inspection - Neurological Exam Neurological Exam: Abnormal Gait, Altered - Skin Skin Exam: Dry, Warm Assessment and Plan (1) Cellulitis Status: Resolved (2) Confusion Status: Chronic (3) Transaminitis Status: Chronic (4) CHF (congestive heart failure) Status: Chronic (5) Coronary artery disease Status: Chronic (6) Hyperkalemia Status: Acute - Assessment and Plan (Free Text) Plan: discontinue aldactone due to hyperkalemia, sw for dc planning, monitor lytes
[2016-11-27 19:10] VITALS: RESP 18
--- NOTE | 2016-11-27 23:06 | CARD ---
APPROVED REPORT EKG Measurement Heart [id number] <Conclusion> Sinus bradycardia with 1st degree AV block Inferior infarct, age undetermined Anterior infarct, age undetermined T wave abnormality, consider lateral ischemia Abnormal ECG
[2016-11-28 06:40] LABS: BASO # 0.02 K/mm3 (0.0-2.0); BASO % 0.2 % (0.0-3.0); EOS # 0.1 (0.0-0.7); EOS % 0.6 % (1.5-5.0); GRAN # 6.35 (1.4-6.5); GRAN % 77.7 % (50.0-68.0); LYMPH # 0.9 (1.2-3.4); LYMPH % 10.5 % (22.0-35.0); MEAN CELL VOLUME 89.3 fl (80.0-105.0); MEAN CORPUSCULAR HEMOGLOBIN 30.1 pg (25.0-35.0); MEAN CORPUSCULAR HGB CONC 33.8 g/dl (31.0-37.0); MEAN PLATELET VOLUME 10.7 fl (7.0-11.0); MONO # 0.9 (0.1-0.6); RED CELL DISTRIBUTION WIDTH 19.1 % (11.5-14.5); WHITE BLOOD COUNT 8.2 10^3/ul (4.5-11.0)
[2016-11-28 06:52] LABS: BILIRUBIN,TOTAL 2.6 mg/dL (0.2-1.3); CALCIUM 9.1 mg/dL (8.4-10.5); MAGNESIUM 2.5 mg/dL (1.7-2.2); PHOSPHOROUS 3.9 mg/dL (2.5-4.5); POTASSIUM 5.3 mmol/L (3.6-5.0); TOTAL PROTEIN 6.7 g/dL (5.8-8.3)
[2016-11-28] MEDS: Insulin Reg-LOW-Coverage SC SCH ×4 (08:08→21:39)
[2016-11-28] MEDS: Potassium Chloride 20 mEq ER Tab PO SCH (08:17)
[2016-11-28] MEDS: Magnesium Oxide 400 mg Tab UD PO SCH (09:15)
[2016-11-28] MEDS: Pantoprazole 40 mg EC Tab PO SCH (09:16)
--- NOTE | 2016-11-28 11:26 | PN ---
DATE: 11/28/2016 LOCATION: The patient is in room 364, bed 2. REASON FOR CONSULTATION: Followup with coronary artery disease, CABG, severe aortic stenosis status post rapid response, hypotension, bradycardia on Dobutrex, severely decreased LV function. SUBJECTIVE: The patient is lying flat in bed without any chest pain, shortness of breath, or palpitations. PHYSICAL EXAMINATION: VITAL SIGNS: Blood pressure 141/78, respirations 18, pulse 68, and temperature 97.8. HEENT: Head is normocephalic. Eyes, pupils normal. Conjunctivae normal. NECK: JVP low. Carotids are equal. Thorax, AP diameter normal. LUNGS: Clear. CARDIOVASCULAR: S1 and S2, systolic murmur. ABDOMEN: Soft, nontender. No organomegaly. Bowel sounds normal. EXTREMITIES: No clubbing. No cyanosis. LABORATORY DATA: WBC 8.2, hemoglobin 13.5, hematocrit 40.0, and platelet 161. Sodium 134, potassium 5.3, BUN 31, and creatinine 1.4. Random sugar 110. Magnesium 2.5, total bilirubin 2.6, AST 70, ALT 176, total protein is 6.7, and albumin 3.4. DIAGNOSES: Decompensated congestive heart failure, acute on chronic systolic dysfunction, severe aortic stenosis, history of coronary artery bypass surgery. Last echo 09/03/2016, ejection fraction 15% to 20%, valve area 0.4 cm square, moderate mitral regurgitation, and moderate tricuspid regurgitation. The patient on aspirin 81 mg daily and heparin 5000 units subcutaneous q. 12 hours. The patient's potassium is 20 mEq p.o. daily, we will put on hold because the patient's potassium is elevated. We will continue Lasix 40 mg p.o. daily. Magnesium level also elevated, magnesium oxide 400 mg b.i.d., we will hold it. Plavix 75 mg p.o. daily, Protonix 40 mg daily, lisinopril 2.5 mg p.o. daily, and we will follow with you. Dr. Garnica discussed the patient's cardiac catheterization and for evaluation of this critical aortic stenosis. The patient does not want any invasive workup or any invasive treatment for his aortic valve stenosis. We will follow with you. Moise Malave MD
--- NOTE | 2016-11-28 11:36 | CP.PCM.PN ---
Subjective - Date & Time of Evaluation Date of Evaluation: 11/28/16 Time of Evaluation: 09:25 - Subjective Subjective: NAD, somewhat confused, nurses report occ agitation, no cp, no sob Objective - Vital Signs/Intake and Output Vital Signs (last 24 hours): Temp Pulse Resp BP Pulse Ox 97.8 F 58 L 18 141/78 98 11/27/16 16:00 11/27/16 16:00 11/27/16 16:00 11/28/16 09:15 11/27/16 16:00 - Medications Medications: Current Medications Alprazolam (Xanax) 0.5 mg PO TID PRN; Protocol PRN Reason: Anxiety Aspirin (Ecotrin) 81 mg PO DAILY [facility] Last Admin: 11/28/16 09:16 Dose: 81 mg Atorvastatin Calcium (Lipitor) 40 mg PO DIN [facility] Last Admin: 11/23/16 16:47 Dose: Not Given Clopidogrel Bisulfate (Plavix) 75 mg PO DAILY [facility] Last Admin: 11/28/16 09:15 Dose: 75 mg Furosemide (Lasix) 40 mg PO DAILY [facility] Last Admin: 11/28/16 09:15 Dose: 40 mg Heparin Sodium (Porcine) (Heparin) 5,000 units SC Q12 [facility] PRN Reason: Protocol Last Admin: 11/28/16 09:14 Dose: 5,000 units Dopamine HCl/Dextrose (Dopamine 400mg/250ml D5w) 400 mg in 250 mls @ 16.67 mls/ hr IV .Q15H PRN; Protocol; 7 MCG/KG/MIN PRN Reason: TITRATE PER MD ORDER Last Admin: 11/24/16 10:34 Dose: 5 mcg/kg/min, 11.907 mls/hr Insulin Human Regular (Humulin R Low) 0 units SC ACHS [facility] PRN Reason: Protocol Last Admin: 11/28/16 08:08 Dose: Not Given Pantoprazole Sodium (Protonix Ec Tab) 40 mg PO DAILY [facility] Last Admin: 11/28/16 09:16 Dose: 40 mg - Labs Labs: 11/28/16 06:23 11/28/16 06:23 - Constitutional Appears: Cachectic - Respiratory Exam Respiratory Exam: Clear to Ausculation Bilateral, NORMAL BREATHING PATTERN - Cardiovascular Exam Cardiovascular Exam: REGULAR RHYTHM, Murmur - GI/Abdominal Exam GI & Abdominal Exam: Soft, Normal Bowel Sounds - Extremities Exam Extremities Exam: Normal Inspection - Neurological Exam Neurological Exam: Abnormal Gait, Altered, Awake - Skin Skin Exam: Dry, Warm Assessment and Plan (1) Cellulitis Status: Resolved (2) Confusion Status: Chronic (3) Transaminitis Status: Chronic (4) CHF (congestive heart failure) Status: Chronic (5) Coronary artery disease Status: Chronic (6) Hyperkalemia Status: Acute - Assessment and Plan (Free Text) Plan: dc aldactone and JN inhibitor due to hyperkalemia, monitor lytes, psych consult , PT, SW for dc planning
--- NOTE | 2016-11-28 16:55 | CON ---
DATE: HISTORY OF PRESENT ILLNESS: The patient is a 76-year-old male with multiple medical issues including coronary artery disease, CHF, diabetes mellitus type 2. The patient was admitted on the medical side for evaluation of confusion, agitation, lower extremity swelling. Psych consult was called for altered mental status and periods of confusion and agitation. The patient was seen and examined today. I discussed with the medical team, nurse practitioner as well as RN. The patient has episodes of confusion and trying to climb over the bed, but there is no physical aggression. There is no agitation. The patient easily redirected and at present moment patient is on one to one. This advertising writer attempted to speak to the patient, but patient was falling asleep during the interview, was not able to stay focus and pay attention, most likely patient is in delirium stage. The patient denied that he felt depressed, denied thoughts of killing himself or others. The patient is not aware what year we are in, but note that he is in [facility]. The patient said that he lives independently. This advertising writer reviewed previous history. The patient does not have history of mental illness as per medical record. PHYSICAL EXAMINATION VITAL SIGNS: Stable. Temperature is 97.8, pulse of 58, blood pressure 141/78, respirations 18, oxygen saturation is 98. MEDICATIONS: Reviewed. The patient was started on Xanax 0.5 mg three times a day as needed for anxiety by nurse practitioner, aspirin, Lipitor, Plavix, dopamine, Lasix, heparin, Humulin, Protonix and Seroquel. This advertising writer would recommend that at nighttime to help patient with delirium stage and confusion and agitation. Hematology review today; hemoglobin and hematocrit 13.5/48.0. Blood gas reviewed. Chemistry reviewed. Potassium is 5.3, chloride is 97. Urinalysis, no infection. AST and ALT is 31 and 70 respectively. MENTAL STATUS EXAMINATION: There is no option to have meaningful conversation. The patient was falling asleep during the interview, difficult to stay focus, no eye contact. Speech was underproductive, slow volume, very slurred. Mood described as not depressed. Affect was flat. Thought process seems to be concrete. Thought content, the patient denied hearing voices, denied seeing things, denied paranoid ideation. The patient has limited insight and judgment. Impulses are unpredictable at the present moment. IMPRESSION: Most likely patient has delirium stage due to electrolyte imbalance, congestive heart failure, patient has multiple medical issues. PLAN: This advertising writer would continue Xanax 0.5 mg three times a day as needed for anxiety and agitation, try to avoid over sedation, Seroquel 12.5 mg at the nighttime and we started to help with the delirium stage. Continue current management. Continue current medication. The patient does not have history of aggression or agitation, has periods of trying to climb over the bed. We will follow up and advice accordingly. Should you have any questions, give me a call back. Sunita Brock MD
[2016-11-28 17:41] VITALS: PULSE 65; TEMP 98.6; O2SAT 95
[2016-11-29 07:20] LABS: BILIRUBIN,TOTAL 2.3 mg/dL (0.2-1.3); MAGNESIUM 2.6 mg/dL (1.7-2.2); PHOSPHOROUS 4.2 mg/dL (2.5-4.5); POTASSIUM 5.1 mmol/L (3.6-5.0); TOTAL PROTEIN 6.5 g/dL (5.8-8.3)
[2016-11-29 07:48] LABS: BASO # 0.03 K/mm3 (0.0-2.0); BASO % 0.4 % (0.0-3.0); EOS # 0.1 (0.0-0.7); EOS % 1.3 % (1.5-5.0); GRAN # 6.06 (1.4-6.5); GRAN % 73.4 % (50.0-68.0); HEMATOCRIT 41.1 % (42.0-52.0); LYMPH # 1.3 (1.2-3.4); LYMPH % 15.1 % (22.0-35.0); MEAN CORPUSCULAR HEMOGLOBIN 30.1 pg (25.0-35.0); MEAN CORPUSCULAR HGB CONC 33.8 g/dl (31.0-37.0); MEAN PLATELET VOLUME 11.4 fl (7.0-11.0); MONO # 0.8 (0.1-0.6); MONO % 9.8 % (1.0-6.0); WHITE BLOOD COUNT 8.3 10^3/ul (4.5-11.0)
[2016-11-29] MEDS: Insulin Reg-LOW-Coverage SC SCH ×2 (07:59→11:48)
--- NOTE | 2016-11-29 09:09 | CP.PCM.PN ---
Subjective - Date & Time of Evaluation Date of Evaluation: 11/29/16 Time of Evaluation: 08:00 - Subjective Subjective: NAD, no cp, denies SOB Objective - Vital Signs/Intake and Output Vital Signs (last 24 hours): Temp Pulse Resp BP Pulse Ox 98.6 F 65 18 145/65 95 11/28/16 16:00 11/28/16 16:00 11/28/16 16:00 11/28/16 16:00 11/28/16 16:00 Intake and Output: 11/29/16 11/29/16 06:59 18:59 Intake Total 240 320 Output Total 400 350 Balance -160 -30 - Medications Medications: Current Medications Alprazolam (Xanax) 0.5 mg PO TID PRN; Protocol PRN Reason: Anxiety Aspirin (Ecotrin) 81 mg PO DAILY [facility] Last Admin: 11/28/16 09:16 Dose: 81 mg Atorvastatin Calcium (Lipitor) 40 mg PO DIN [facility] Last Admin: 11/23/16 16:47 Dose: Not Given Clopidogrel Bisulfate (Plavix) 75 mg PO DAILY [facility] Last Admin: 11/28/16 09:15 Dose: 75 mg Furosemide (Lasix) 40 mg PO DAILY [facility] Last Admin: 11/28/16 09:15 Dose: 40 mg Heparin Sodium (Porcine) (Heparin) 5,000 units SC Q12 [facility] PRN Reason: Protocol Last Admin: 11/28/16 21:32 Dose: 5,000 units Dopamine HCl/Dextrose (Dopamine 400mg/250ml D5w) 400 mg in 250 mls @ 16.67 mls/ hr IV .Q15H PRN; Protocol; 7 MCG/KG/MIN PRN Reason: TITRATE PER MD ORDER Last Admin: 11/24/16 10:34 Dose: 5 mcg/kg/min, 11.907 mls/hr Insulin Human Regular (Humulin R Low) 0 units SC ACHS [facility] PRN Reason: Protocol Last Admin: 11/29/16 07:59 Dose: Not Given Pantoprazole Sodium (Protonix Ec Tab) 40 mg PO DAILY [facility] Last Admin: 11/28/16 09:16 Dose: 40 mg Quetiapine Fumarate (Seroquel) 12.5 mg PO HS [facility] PRN Reason: Protocol Last Admin: 11/28/16 21:32 Dose: 12.5 mg - Labs Labs: 11/29/16 07:41 11/29/16 05:00 - Respiratory Exam Respiratory Exam: Clear to Ausculation Bilateral, NORMAL BREATHING PATTERN - Cardiovascular Exam Cardiovascular Exam: REGULAR RHYTHM - GI/Abdominal Exam GI & Abdominal Exam: Soft, Normal Bowel Sounds - Extremities Exam Extremities Exam: Normal Inspection - Neurological Exam Neurological Exam: Abnormal Gait, Altered - Skin Skin Exam: Dry, Warm Assessment and Plan (1) Cellulitis Status: Resolved (2) Confusion Status: Chronic (3) Transaminitis Status: Chronic (4) CHF (congestive heart failure) Status: Chronic (5) Coronary artery disease Status: Chronic (6) Hyperkalemia Status: Acute - Assessment and Plan (Free Text) Plan: monitor lytes, cardio f/u,PT and SW for DC planning
[2016-11-29] MEDS: Pantoprazole 40 mg EC Tab PO SCH (09:12)
[2016-11-29 09:19] VITALS: BP 97/69
--- NOTE | 2016-11-29 15:57 | PN ---
DATE: 11/29/2016 LOCATION: The patient is in room 364, bed 2. REASON FOR CONSULTATION: Coronary artery disease, CABG, severe aortic stenosis, status post rapid response; hypotension, bradycardia, severely decreased LV function. SUBJECTIVE: The patient is lying flat in bed without chest pain, shortness of breath, or palpitations. PHYSICAL EXAMINATION: VITAL SIGNS: Blood pressure is 197/69, earlier blood pressure recorded 145/65, respirations 18, pulse 65, and temperature 98.6. HEENT: Head is normocephalic. Eyes, pupils normal. Conjunctivae normal. NECK: JVP low. Carotids are equal. Thorax, AP diameter normal. LUNGS: No rales. CARDIOVASCULAR: S1 and S2, systolic murmur. ABDOMEN: Soft, no tenderness, no organomegaly. EXTREMITIES: No clubbing. No cyanosis. LABORATORY DATA: WBC 8.3, hemoglobin 13.9, hematocrit 41.1, platelet 161. Sodium 135, potassium 5.1, BUN 33, creatinine 1.4. Random sugar 116. Magnesium 2.6, total bilirubin 2.3, AST 32, ALT 69, alkaline phosphate 163, total protein is 6.5, and albumin 3.3. DIAGNOSES: Decompensated congestive heart failure, acute on chronic LV systolic dysfunction, severe aortic stenosis, coronary artery disease, status post coronary artery bypass surgery. Last echo , ejection fraction 15% to 20%, valve area 0.4 cm square, moderate mitral regurgitation, and moderate tricuspid regurgitation. PLAN: Compared to yesterday potassium was 5.3, today is 5.1, so potassium is coming down. Potassium was put on hold. Magnesium still elevated and yesterday magnesium was also taken off from the medication list, and we will continue Lasix 40 p.o. daily, atorvastatin 40 daily, Plavix 75 daily, heparin 5000 units subQ q. 12 hourly; aspirin 81 mg daily; Protonix 40 daily, Seroquel 12.5 mg p.o. at bedtime. We will follow with you. Moise Malave MD
--- NOTE | 2016-11-29 21:24 | PN ---
DATE: FOLLOWUP NOTE SUBJECTIVE: The patient is a 76-year-old male who has not known previous psychiatric history, multiple medical issues including coronary artery disease, CHF, diabetes. The patient was admitted from the medical site for evaluation of confusion, agitation, and lower extremity swelling. Psych consult was called for evaluation of altered mental status. Initially,the patient was seen yesterday. The patient presented to be confused, at times the patient has episodes of trying climb off the bed, but there was no agitation or aggression. This policy writer typist initiated Seroquel 12.5 mg at the night time. The patient deemed tolerating it well. No side effects observed or reported. The patient was followed up today. The patient presented in good spirit. He was smiling back to this policy writer typist. The patient has episodes of confusion, but to compare with yesterday, is better. The patient denied feeling depressed. Denied thoughts of harming himself or others. Denied visual, auditory, or tactile hallucinations. Denied paranoid ideation. PHYSICAL EXAMINATION: VITAL SIGNS: Within normal limits. Temperature is 98.6, pulse is 55, blood pressure 97/69, respirations 18, oxygen saturation is 95%. MEDICATIONS: Reviewed. The patient is on Xanax 0.5 mg two times a day as needed. The patient did not get any Xanax. The patient is on aspirin, Lipitor, Plavix, dobutamine, Lasix, heparin, Humulin, Protonix, and Seroquel was started 12.5 at the nighttime for confusion and altered mental status and for delirium. LABORATORY DATA: Labs reviewed, most recently from today. Hemoglobin and hematocrit 13.9 and 41.1. Chemistry reviewed. Potassium 5.1. AST and ALT 32 and 69. The patient was seen by financial recording clerk. MENTAL STATUS EXAMINATION: The patient appears to be alert, but confused. The patient knows that he is in the hospital, but is not aware of the date. Intermittent eye contact. Speech was normal rate, tone, quality, and quantity, but low volume. Mood descried "I'm feeling okay." Affect was reactive. Mood congruent. Thought process at times confabulates, for example when this policy writer typist asked if you remember this policy writer typist, the patient said, "I remember you from somewhere," and the patient was not able to tell from where. Thought content, the patient has episodes of confusion, trying to climb off the bed, last episode was yesterday. Today, the patient is doing much better. Insight and judgment are limited. Impulses are well controlled right now. IMPRESSION: Most likely, the patient had delirium episodes, which is related to the medical issues, which is improving. PLAN: The patient was started on Seroquel 12.5 mg at the nighttime. The patient tolerates that well. The patient that he is going to subacute rehab and the patient needs to be followed up with psychiatrist within 1 week of the discharge from [facility]. The patient deemed not to be in danger to self or others. The patient is not imminent danger for self or others. Should you have any questions, give me a call back. This policy writer typist will sign off. Thank you very much for letting me to participate in the care of your patient. Sunita Brock MD
== END 2016-11-29 17:22 | DRG 291 ==
LOC: ED 16:28 → ERH 18:28 → 5RSO 20:45 → CCU 11-23 14:54 → 3RNO 11-27 13:13
PROVIDERS: ADMIT Internal Medicine; ATTEND Internal Medicine
PROC: 5A09357 Assistance with Respiratory Ventilation, Less than 24 Consecutive Hours, Continuous Positive Airway Pressure (ICD-10-PCS; principal; 2016-11-23)
DX: I11.0 Hypertensive heart disease with heart failure (principal); I50.23 Acute on chronic systolic (congestive) heart failure; R57.0 Cardiogenic shock; F05 Delirium due to known physiological condition; I69.354 Hemiplegia and hemiparesis following cerebral infarction affecting left non-dominant side; L03.90 Cellulitis, unspecified; F03.90 Unspecified dementia, unspecified severity, without behavioral disturbance, psychotic disturbance, mood disturbance, and anxiety; E83.42 Hypomagnesemia; I27.2 Other secondary pulmonary hypertension; E87.5 Hyperkalemia; I08.3 Combined rheumatic disorders of mitral, aortic and tricuspid valves; E11.9 Type 2 diabetes mellitus without complications; I25.10 Atherosclerotic heart disease of native coronary artery without angina pectoris; I25.5 Ischemic cardiomyopathy; E87.6 Hypokalemia; H26.9 Unspecified cataract; E78.5 Hyperlipidemia, unspecified; Z78.1 Physical restraint status; Z79.84 Long term (current) use of oral hypoglycemic drugs; Z95.1 Presence of aortocoronary bypass graft

== ENCOUNTER 2016-11-30 07:34 | Emergency (ER) | payer MEDICARE ==
[2016-11-30 07:34] VITALS: BMI 23.3
--- NOTE | 2016-11-30 07:45 | ED PDOC ---
Arrival/HPI - General Chief Complaint: Trauma Time Seen by Provider: 11/30/16 07:38 Historian: Patient - History of Present Illness Narrative History of Present Illness (Text): 11/30/16 07:40 Ze Larkin is a 76 year old male, whose past medical history includes CAD, CHF, and diabetes, brought in by EMS who reports that [facility] staff found patient intentionally hitting his head against the wall this morning. Patient confirms and states that every time he has a headache this is what he does. Patient says these symptoms are similar to previous headaches that he has had for the past 8 years. Patient denies any SI/HI or any other complaints at this time. Time/Duration: 1-3 hours Symptom Course: Improving Activities at Onset: Rest Context: Other ([facility]) Past Medical History - Provider Review Nursing Documentation Reviewed: Yes - Infectious Disease Hx of Infectious Diseases: None - Tetanus Immunization Tetanus Immunization: >10 years Ago - Cardiac Hx Cardiac Disorders: Yes (CAD s/p bypass x 3) Hx Congestive Heart Failure: Yes Hx Hypertension: Yes - Neurological HX Cerebrovascular Accident: Yes - HEENT Hx HEENT Disorder: Yes (visual changes) - Renal Hx Renal Disorder: No - Endocrine/Metabolic Hx Diabetes Mellitus Type 2: Yes - Integumentary Hx Dermatological Disorder: No - Musculoskeletal/Rheumatological Hx Falls: Yes - Psychiatric Hx Substance Use: No - Surgical History Hx Coronary Artery Bypass Graft: Yes Hx Open Heart Surgery: Yes - Anesthesia Hx Anesthesia Reactions: No Family/Social History - Physician Review Nursing Documentation Reviewed: Yes Family/Social History: Unknown Family HX Smoking Status: Former Smoker Hx Alcohol Use: No Hx Substance Use: No Allergies/Home Meds Allergies/Adverse Reactions: Allergies No Known Allergies Allergy (Verified 11/30/16 07:42) Home Medications: Home Meds Medication Instructions Recorded Confirmed Clopidogrel [Plavix] 75 mg PO DAILY 11/20/16 11/30/16 MetFORMIN [glucoPHAGE] 500 mg PO BID 11/20/16 11/30/16 Potassium Gluconate [Potassium] 10 meq PO DAILY 11/20/16 11/30/16 Alprazolam [Xanax] 0.5 mg PO Q8 PRN 11/30/16 11/30/16 Aspirin [Aspirin Chewable] 81 mg PO DAILY 11/30/16 11/30/16 Atorvastatin [Lipitor] 40 mg PO DAILY 11/30/16 11/30/16 metFORMIN [glucOPHAGE] 500 mg PO BID 11/30/16 11/30/16 Physical Exam - Physical Exam Narrative Physical Exam (Text): - Review of Systems Constitutional: Normal. absent: Fatigue, Weight Change, Fevers Eyes: Normal ENT: denies sore throat, denies tristhmus Respiratory: Normal. absent: SOB, Cough, Sputum Cardiovascular: absent: Chest Pain, Palpitations, Syncope Gastrointestinal: Normal. absent: Abdominal Pain, Diarrhea, Nausea, Vomiting Genitourinary: Normal. absent: Dysuria, Frequency, Hematuria, vaginal bleeding Musculoskeletal: Normal. absent: Arthralgias, Back Pain, Neck Pain Skin: no rashes, no erythema Neurological: absent: Focal Weakness Endocrine: Normal Hemo/Lymphatic: Normal Psychiatric: No suicidal or homicidal ideations Physical exam Patient appears age appropriate in no distress, speaking full sentences without difficulty - Systems Exam Head: Superficial abrasion, no active bleeding. Pupils: Present: PERRL Extroacular Muscles: Present: EOMI Conjunctiva: Present: Normal Mouth: Present: Moist Mucous Membranes Neck: Present: Normal Range of Motion. No: MIDLINE TENDERNESS, Paraspinal Tenderness Respiratory/Chest: Present: Clear to Auscultation, Good Air Exchange. No: Respiratory Distress, Accessory Muscle Use, Tachypneic Cardiovascular: Present: Regular Rate and Rhythm, Normal S1, S2, Peripheal Pulses Present. No: Murmurs Abdomen: Present: Normal Bowel Sounds. No: Tenderness, Distention, Peritoneal Signs, Rebound, Guarding Back: Present: Normal Inspection. No: Midline Tenderness, Paraspinal Tenderness Upper Extremity: Present: Normal Inspection. No: Cyanosis, Edema Lower Extremity: Present: Normal Inspection. No: Edema Neurological: Present: GCS=15, Speech Normal, cranial nerves II through XII fully intact with no cerebellar abnormality, neurosensory fully intact. No focal neurological deficits. Skin: Present: Warm, Dry, Normal Color. No: Rashes Lymphatic: Present: OX3, NI, NC Psychiatric: Present: Oriented to name and place, not time. Alert and not anxious Vital Signs Temp Pulse Resp BP Pulse Ox 11/30/16 13:15 71 16 110/60 96 11/30/16 12:16 97.9 F 73 16 109/60 97 11/30/16 09:29 69 16 104/68 96 Medical Decision Making ED Course and Treatment: 11/30/16 07:42 Impression: 76 year old male brought in by EMS who reports that [facility] staff found patient intentionally hitting his head against the wall this morning. On physical exam, patient has a superficial abrasion to his head with no active bleeding. Pt denies SI/HI. Plan: -- Head CT w/o contrast -- Labs -- Tylenol and Boostrix -- Reassess and disposition Prior Visits: Notes and results from previous visits were reviewed. Note from psychiatrist on 11/29/16 shows that patient had an episode of AMS which was thought to be due to a delirium episode related to his medical issues. Patient was started on seroquel. Progress Notes: EKG shows NSR at [address]-segment elevations, normal intervals. Interpreted by me. 11/30/16 12:20 CT Head Radiologist IMPRESSION: No acute intracranial abnormality Left occipital lobe cystic encephalomalacia, sequela of remote left FURNITURE SANDER territory infarction. 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 Mild chronic microangiopathic changes and moderate age-related global parenchymal volume loss. Pt in no distress son bedside, states mental status around baseline dw Dr. Maldonado in detail, states to dc pt back to NH and he will f/u pt in no distress, no focal neurological deficits on reevaluation - Lab Interpretations Lab Results: 11/30/16 08:30 11/30/16 08:30 Lab Results 11/30/16 08:44: PT 15.9 H, INR 1.47 H, APTT 31.8 H 11/30/16 08:30: Sodium 136, Potassium 4.2, Chloride 96 L, Carbon Dioxide 27, Anion Gap 17, BUN 32 H, Creatinine 1.4, Est GFR ( Amer) 60, Est GFR (Non- Af Amer) 49, Random Glucose 105, Calcium 9.2, Total Bilirubin 2.3 H, AST 27, ALT 53, Alkaline Phosphatase 174 H, Total Protein 6.9, Albumin 3.5, Globulin 3.4 , Albumin/Globulin Ratio 1.0 L 11/30/16 08:30: WBC 10.3 D, RBC 4.76, Hgb 14.6, Hct 42.2, MCV 88.7, MCH 30.7, MCHC 34.6, RDW 19.4 H, Plt Count 198, MPV 10.8, Gran % 81.0 H, Lymph % (Auto) 10.4 L, [place] % (Auto) 7.1 H, Eos % (Auto) 1.2 L, Baso % (Auto) 0.3, Gran # 8.38 H, Lymph # 1.1 L, [place] # 0.7 H, Eos # 0.1, Baso # 0.03 I have reviewed the lab results: Yes - RAD Interpretation Radiology Orders: 11/30/16 08:01 HEAD W/O CONTRAST [CT] Stat - Medication Orders Current Medication Orders: Discontinued Medications Acetaminophen (Tylenol 325mg Tab) 975 mg PO STAT STA Stop: 11/30/16 08:00 Last Admin: 11/30/16 08:29 Dose: 975 mg [facility] Pain/Vitals Document 11/30/16 08:29 RR (Rec: 11/30/16 08:29 RR [id number]) Pain Reassessment Is This A Pain ReAssessment? Yes Sleep Is patient sleeping during reassessment? No Presence of Pain Presence of Pain Yes Location Pain Location Body Environmental Safety Specialist Tetanus/Reduced Diphtheria/Acell Pertussis (Boostrix Vaccine Inj) 0.5 ml IM .ONCE ONE Stop: 11/30/16 08:00 Last Admin: 11/30/16 08:28 Dose: 0.5 ml [facility] Immunization Data Document 11/30/16 08:28 RR (Rec: 11/30/16 08:29 RR [id number]) Immunization Data Vaccine Lot Number [id number] Vaccine Expiration Date 11/20/18 Site Given Right Deltoid Route Intramuscular Immunization Units ml - Scribe Statement The provider has reviewed the documentation as recorded by the Chano Mejia Provider Scribe Attestation: All medical record entries made by the Scribdaryl were at my direction and personally dictated by me. I have reviewed the chart and agree that the record accurately reflects my personal performance of the history, physical exam, medical decision making, and the department course for this patient. I have also personally directed, reviewed, and agree with the discharge instructions and disposition. Disposition/Present on Arrival - Present on Arrival Any Indicators Present on Arrival: No History of DVT/PE: No History of Uncontrolled Diabetes: Yes Urinary Catheter: No History of Decub. Ulcer: No History Surgical Site Infection Following: CABG - Mediastinitis - Disposition Have Diagnosis and Disposition been Completed?: Yes Diagnosis: Altered mental status Disposition: HOME/ ROUTINE Disposition Time: 12:48 Patient Plan: Discharge Condition: GOOD Discharge Instructions (ExitCare): Head Injury (ED), Altered Mental Status (ED) Additional Instructions: PLEASE RETURN TO THE EMERGENCY DEPARTMENT FOR NEW OR WORSENING SYMPTOMS. RETURN RIGHT AWAY IF YOU CANNOT FOLLOW UP WITH YOUR PRIMARY CARE DOCTOR, CLINIC, OR SPECIALIST IN 1-2 DAYS. Referrals: Morgan Maldonado JD, MD [Family Provider] - Follow up with primary Snuita Brock MD [Staff Provider] - Follow up with primary Forms: [employer] (Indian)
[2016-11-30] MEDS ORDERED: TDAP Vaccine 0.5 mL Syr IM ONE (07:59)
[2016-11-30 08:46] LABS: BASO # 0.03 K/mm3 (0.0-2.0); BASO % 0.3 % (0.0-3.0); EOS # 0.1 (0.0-0.7); EOS % 1.2 % (1.5-5.0); GRAN # 8.38 (1.4-6.5); HEMATOCRIT 42.2 % (42.0-52.0); LYMPH # 1.1 (1.2-3.4); LYMPH % 10.4 % (22.0-35.0); MEAN CELL VOLUME 88.7 fl (80.0-105.0); MEAN CORPUSCULAR HEMOGLOBIN 30.7 pg (25.0-35.0); MEAN CORPUSCULAR HGB CONC 34.6 g/dl (31.0-37.0); MEAN PLATELET VOLUME 10.8 fl (7.0-11.0); MONO # 0.7 (0.1-0.6); MONO % 7.1 % (1.0-6.0); RED CELL DISTRIBUTION WIDTH 19.4 % (11.5-14.5); WHITE BLOOD COUNT 10.3 10^3/ul (4.5-11.0)
[2016-11-30 08:58] LABS: INR 1.47 (0.93-1.08); PARTIAL THROMBOPLASTIN TIME 31.8 Seconds (23.7-30.8)
[2016-11-30 09:17] LABS: BILIRUBIN,TOTAL 2.3 mg/dL (0.2-1.3); CALCIUM 9.2 mg/dL (8.4-10.5); POTASSIUM 4.2 mmol/L (3.6-5.0); TOTAL PROTEIN 6.9 g/dL (5.8-8.3)
[2016-11-30 09:29] VITALS: RESP 16
--- NOTE | 2016-11-30 11:36 | CT ---
PROCEDURE: CT HEAD WITHOUT CONTRAST. HISTORY: Head injury COMPARISON: 11/22/2016. TECHNIQUE: Axial computed tomography images were obtained through the head/brain without intravenous contrast. Radiation dose: Total exam DLP = 774.23 mGy-cm. This CT exam was performed using one or more of the following dose reduction techniques: Automated exposure control, adjustment of the mA and/or kV according to patient size, and/or use of iterative reconstruction technique. FINDINGS: HEMORRHAGE: No intracranial hemorrhage. BRAIN: There is redemonstration of cystic encephalomalacia in the left occipital lobe and old infarctions in the left cerebellar hemisphere. There is also an old infarction in the left frontal lobe. There are mild chronic microangiopathic changes. There is no mass, mass effect or abnormal extra-axial fluid collection. VENTRICLES: There is moderate age-related global parenchymal volume loss and proportionate enlargement of the ventricles and cortical sulci. CALVARIUM: There is no calvarial fracture or extracranial soft tissue swelling. PARANASAL SINUSES: Predominantly clear. MASTOID AIR CELLS: There is an left mastoid effusion. The right mastoid air cells are clear. OTHER FINDINGS: None. IMPRESSION: No acute intracranial abnormality Left occipital lobe cystic encephalomalacia, sequela of remote left PROJECT PORTFOLIO ANALYST territory infarction. 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 Mild chronic microangiopathic changes and moderate age-related global parenchymal volume loss.
[2016-11-30 12:19] VITALS: TEMP 97.9
[2016-11-30 14:07] VITALS: BP 110/60; PULSE 71; O2SAT 96
== END 2016-11-30 13:30 | disposition home or self-care (01) ==
LOC: ED 07:34
DX: R41.82 Altered mental status, unspecified (principal); I25.10 Atherosclerotic heart disease of native coronary artery without angina pectoris; I10 Essential (primary) hypertension; E11.9 Type 2 diabetes mellitus without complications; Z95.1 Presence of aortocoronary bypass graft; Z87.891 Personal history of nicotine dependence; Z23 Encounter for immunization

== ENCOUNTER 2017-01-18 12:20 | Inpatient (IN) | payer MEDICARE ==
[2017-01-18] MEDS ORDERED: Sodium Chloride 0.9% 1,000 ML IV STA (12:49)
--- NOTE | 2017-01-18 12:53 | ED PDOC ---
Arrival/HPI - General Chief Complaint: Weakness/Neurological Deficit Time Seen by Provider: 01/18/17 12:23 Historian: Family ([id number] and [id number]) - History of Present Illness Narrative History of Present Illness (Text): 01/18/17 12:50 A 76 year old mildly lethargic male, whose past medical history includes CAD/ CABG, CHF, and diabetes, is brought in by [facility], accompanied by [id number] and [id number], presents to the emergency department complaining of generalized weakness. Per family, patient has not been eating since yesterday. Also, patient has been picking at his skin on legs. Patient notes experiencing shortness of breath since yesterday, but denies any nausea, vomiting, diarrhea, abdominal pain, or any other complaints at this time. PMD: Dr. Morgan Maldonado Hose Seamer: Dr. Malave Time/Duration: 24 hours Symptom Onset: Sudden Symptom Course: Unchanged Past Medical History - Provider Review Nursing Documentation Reviewed: Yes - Infectious Disease Hx of Infectious Diseases: None - Tetanus Immunization Tetanus Immunization: >10 years Ago - Cardiac Hx Cardiac Disorders: Yes (CAD s/p bypass x 3) Hx Congestive Heart Failure: Yes Hx Hypertension: Yes - Neurological HX Cerebrovascular Accident: Yes - HEENT Hx HEENT Disorder: Yes (visual changes) - Renal Hx Renal Disorder: No - Endocrine/Metabolic Hx Diabetes Mellitus Type 2: Yes - Integumentary Hx Dermatological Disorder: No - Musculoskeletal/Rheumatological Hx Falls: Yes - Psychiatric Hx Substance Use: No - Surgical History Hx Coronary Artery Bypass Graft: Yes Hx Open Heart Surgery: Yes - Anesthesia Hx Anesthesia: Yes Hx Anesthesia Reactions: No Hx Malignant Hyperthermia: No Family/Social History - Physician Review Nursing Documentation Reviewed: Yes Family/Social History: No Known Family HX Smoking Status: Former Smoker Hx Alcohol Use: No Hx Substance Use: No Allergies/Home Meds Allergies/Adverse Reactions: Allergies No Known Allergies Allergy (Verified 01/18/17 12:28) Home Medications: Home Meds Medication Instructions Recorded Confirmed Clopidogrel [Plavix] 75 mg PO DAILY 11/20/16 01/18/17 Potassium Gluconate [Potassium] 10 meq PO DAILY 11/20/16 01/18/17 Furosemide [Lasix] 20 mg PO DAILY 01/18/17 01/18/17 Review of Systems - Physician Review All systems were reviewed & negative as marked: Yes - Review of Systems Respiratory: SOB, Cough Gastrointestinal: Appetite Changes. absent: Abdominal Pain, Diarrhea, Nausea, Vomiting Physical Exam Vital Signs Reviewed: Yes Vital Signs Temp Pulse Resp BP Pulse Ox 01/18/17 12:55 97.8 F 01/18/17 12:21 98.0 F 84 23 102/60 94 L Temperature: Afebrile Blood Pressure: Normal Pulse: Regular Respiratory Rate: Normal Appearance: Positive for: Ill-Appearing Pain Distress: None Mental Status: Positive for: Lethargic (mildly lethargic but responsive) - Systems Exam Head: Present: Atraumatic, Normocephalic, Other (superficial excoriated ulcer of the scalp in the mid-parietal area) Pupils: Present: PERRL Conjunctiva: Present: Normal Mouth: Present: Dry Pharnyx: Present: Normal. No: ERYTHEMA, EXUDATE Neck: Present: Normal Range of Motion. No: JVD Respiratory/Chest: Present: Decreased Breath Sounds (diminished breath sounds b/ l basis) Cardiovascular: Present: Regular Rate and Rhythm, Normal S1, S2. No: Murmurs Abdomen: Present: Normal Bowel Sounds. No: Tenderness, Distention, Peritoneal Signs Back: Present: Normal Inspection Upper Extremity: Present: Normal Inspection. No: Cyanosis, Edema Lower Extremity: Present: Other (multiple excoriations throughout lower extremities; black eschar to medial side of right big toe; black eschar lateral aspect of left foot, dorsal left foot ulceration mild swelling and erythema, black eschar at base of left dorsal foot, left big toe, 2nd digit, and third toe ) Neurological: Present: GCS=15, CN II-XII Intact Skin: Present: Warm, Dry, Normal Color. No: Rashes Psychiatric: Present: Lethargic (mildly lethargic, is responsive) Medical Decision Making ED Course and Treatment: 01/18/17 12:55 Impression: 76 year old male accompanied by [id number] and [id number]-ft-jwu for generalized weakness. Physical exam shows black eschar to medial side of right big toe; black eschar lateral aspect of left foot, dorsal left foot ulceration mild swelling and erythema, black eschar at base of left dorsal foot , left big toe, 2nd digit, and third toe, multiple small scarring to lower extremities; diminished breath sounds b/l basis. Plan: -- EKG -- Brain CT -- Chest X-ray -- Left Foot X-ray -- Abd/Pelvis CT -- Labs -- Blood Gas -- Urinalysis -- Blood Culture -- Urine Culture -- IV Fluids -- Dextrose 50% -- Reassess and disposition Prior Visits: Notes and results from previous visits were reviewed. Patient was last seen in the emergency department on 11/30/2016 sent from long term after patient being found intentionally hitting his head against wall. Patient was discharged home. Progress Notes: EKG: Ordered, reviewed, and independently interpreted the EKG. Rate : 85 BPM Rhythm : NSR Interpretation : PACs, poor R-wave progression; Q-waves inferiorly; NE is 206; other intervals normal Comparison : No ST changes to previous EKG from 12/04/2012. 01/18/17 13:52 Code Sepsis called. 01/18/2017 13:[address] IMPRESSION: No evidence of acute intracranial hemorrhage mass effect or midline shift. Re- demonstration of foci of encophalomalacia at the left brain. Rsps-gr-vewlhhkn atrophy and moderate chronic microvascular white matter ischemic disease again noted. Dictator: Riya Flores 01/18/2017 14:21 Chest X-ray IMPRESSION: Interval improvement in the pulmonary congestion since the previous exam. Persistent cardiomegaly and right pleural effusion suggestive of CHF. Dictator: Riya Flores MD 01/18/2017 14:27 Foto X-Ray IMPRESSION: No radiographic evidence of acute pathology in the feet. Dictator: Riya Flores MD 01/18/17 15:19 Patient with noted history. He is hemodynamically stable but appears to be septic. WBC is 22K with above normal respiratory rate with 2/4 SIRS criteria. Lactic acid 4 - code sepsis called. Patient given vanco and zosyn; IVF administration is less than sepsis protocol calls for due to signficant history of CHF and CHF presence on CXR. Patient's left foot appears to be a possible source of infection. CXR is more suggestive of CHF, but cannot rule out underlying pneumonia. Also elevated bilirubin is present with high alk phos - will obtain abdominal CT, keeping cholangitis or cholecystitis on the differential. He will need to be admitted; case discussed with Dr. Maldonado for admission to his service. - Lab Interpretations Lab Results: 01/18/17 12:50 01/18/17 12:50 Lab Results 01/18/17 12:50: Digoxin < 0.4 L 01/18/17 12:50: Sodium 134, Chloride 100, Potassium 4.6, Carbon Dioxide 20 L, Anion Gap 19, BUN 47 H, Creatinine 1.9 H, Est GFR ( Amer) 42, Est GFR ( Non-Af Amer) 35, Random Glucose 63 L, Calcium 8.7, Phosphorus 4.7 H, Magnesium 1.7, Total Bilirubin 3.9 H, Direct Bilirubin 2.7 H, AST 33, ALT 26, Alkaline Phosphatase 200 H, Lactate Dehydrogenase 614, Total Creatine Kinase 45, Troponin I 0.11 D, NT-Pro-B Natriuret Pep 721004 H, Total Protein 6.7, Albumin 3.0, Globulin 3.7, Albumin/Globulin Ratio 0.8 L, Lipase 18 L 01/18/17 12:50: pO2 27 L, VBG pH 7.25 L, VBG pCO2 47.0, VBG HCO3 20.6 L, VBG Total CO2 22.0, VBG O2 Sat (Calc) 49.8, VBG Base Excess -6.7 L, VBG Potassium 4.4, Sodium 132.0, Chloride 98.0, Glucose 60 L, Lactate 4.0 H*, FiO2 21.0, Venous Blood Potassium 4.4 01/18/17 12:50: PT 19.8 H, INR 1.78 H, APTT 42.9 H 01/18/17 12:50: WBC 22.0 H D, RBC 5.32, Hgb 17.0 D, Hct 48.1, MCV 90.4, MCH 32.0, MCHC 35.3, RDW 18.3 H, Plt Count 56 L, Gran % 96.0 H, Lymph % (Auto) 2.1 L , [place] % (Auto) 1.8, Eos % (Auto) 0.0 L, Baso % (Auto) 0.1, Gran # 21.13 H, Lymph # 0.5 L, [place] # 0.4, Eos # 0.0, Baso # 0.02, Neutrophils % (Manual) 91 H, Band Neutrophils % 5 H, Lymphocytes % (Manual) 2 L, Monocytes % (Manual) 2, Toxic Granulation 1+, Platelet Evaluation Low, Large Platelets Present, Basophilic Stippling Slight, Ovalocytes Slight I have reviewed the lab results: Yes - RAD Interpretation Radiology Orders: 01/18/17 12:47 Brain [HEAD W/O CONTRAST] [CT] Stat CHEST TWO VIEWS (PA/LAT) [RAD] Stat FOOT 3 VIEWS BI [RAD] Stat 01/18/17 14:44 ABD & PELVIS W/O PO OR IV CONT [CT] Stat - Medication Orders Current Medication Orders: Vancomycin HCl 1 gm/ Sodium (Chloride) 250 mls @ 133.333 mls/hr IV STAT STA PRN Reason: Protocol Stop: 01/18/17 16:13 Discontinued Medications Dextrose (Dextrose 50% Inj) 50 ml IVP STAT STA Stop: 01/18/17 13:09 Last Admin: 01/18/17 13:27 Dose: 50 ml IVP Administration Document 01/18/17 13:27 CNR (Rec: 01/18/17 13:27 CNR [id number]) Charges for Administration # of IVP Administrations 1 Sodium Chloride (Sodium Chloride 0.9%) 1,000 mls @ 100 mls/hr IV .Q10H STA Stop: 01/18/17 22:48 Last Admin: 01/18/17 13:27 Dose: 100 mls/hr eMAR Start Stop Document 01/18/17 13:27 CNR (Rec: 01/18/17 13:28 CNR [id number]) Intravenous Solution Start Date 01/18/17 Start Time 13:28 Ceftaroline Fosamil 400 mg/ (Sodium Chloride) 100 mls @ 100 mls/hr IVPB STAT STA PRN Reason: Protocol Stop: 01/18/17 14:36 Last Admin: 01/18/17 14:12 Dose: 100 mls/hr eMAR Start Stop Document 01/18/17 14:12 CNR (Rec: 01/18/17 14:17 CNR [id number]) Intravenous Solution Start Date 01/18/17 Start Time 14:17 Sodium Chloride (Sodium Chloride 0.9%) 1,000 mls @ 1,000 mls/hr IV .Q1H STA Stop: 01/18/17 13:48 Last Admin: 01/18/17 14:18 Dose: 1,000 mls/hr eMAR Start Stop Document 01/18/17 14:18 CNR (Rec: 01/18/17 14:19 CNR [id number]) Intravenous Solution Start Date 01/18/17 Start Time 14:19 Piperacillin Sod/Tazobactam Sod (Zosyn 3.375 In Ns 100ml) 100 mls @ 200 mls/hr IVPB STAT STA PRN Reason: Protocol Stop: 01/18/17 14:50 Last Admin: 01/18/17 14:37 Dose: 200 mls/hr eMAR Start Stop Document 01/18/17 14:37 EWO (Rec: 01/18/17 14:37 EWO [id number]) Intravenous Solution Start Date 01/18/17 Start Time 14:37 End Date 01/18/17 End time 15:07 Total Infusion Time 30 - Scribe Statement The provider has reviewed the documentation as recorded by the Chano Espinosa Provider Scribe Attestation: All medical record entries made by the Scribe were at my direction and personally dictated by me. I have reviewed the chart and agree that the record accurately reflects my personal performance of the history, physical exam, medical decision making, and the department course for this patient. I have also personally directed, reviewed, and agree with the discharge instructions and disposition. Disposition/Present on Arrival - Present on Arrival Any Indicators Present on Arrival: Yes History of DVT/PE: No History of Uncontrolled Diabetes: Yes Urinary Catheter: No History of Decub. Ulcer: No History Surgical Site Infection Following: CABG - Mediastinitis - Disposition Have Diagnosis and Disposition been Completed?: Yes Diagnosis: Sepsis Disposition: HOSPITALIZED Disposition Time: 14:20 Patient Plan: Admission, Telemetry Condition: GUARDED Discharge Instructions (ExitCare): Sepsis (ED) Referrals: Morgan Maldonado JD, MD [Primary Care Provider] - Follow up with primary Forms: [employer] ([place])
[2017-01-18] MEDS ORDERED: Dextrose 50% SYRINGE Inj (50 ml) IVP STA (13:08)
[2017-01-18] MEDS ORDERED: Dextrose 50% SYRINGE Inj (50 ml) ONE ×2 (13:12→21:28)
[2017-01-18 13:18] LABS: VENOUS BLOOD GAS BASE EXCESS -6.7 mmol/L (0.0-2.0); VENOUS BLOOD PH 7.25 (7.32-7.43)
[2017-01-18 13:23] LABS: BASO # 0.02 K/mm3 (0.0-2.0); BASO % 0.1 % (0.0-3.0); GRAN # 21.13 (1.4-6.5); HEMATOCRIT 48.1 % (42.0-52.0); LYMPH # 0.5 (1.2-3.4); LYMPH % 2.1 % (22.0-35.0); MEAN CELL VOLUME 90.4 fl (80.0-105.0); MEAN CORPUSCULAR HGB CONC 35.3 g/dl (31.0-37.0); MONO # 0.4 (0.1-0.6); MONO % 1.8 % (1.0-6.0); PLATELET COUNT 56 10^3/uL (120.0-450.0); RED CELL DISTRIBUTION WIDTH 18.3 % (11.5-14.5)
[2017-01-18] MEDS: Sodium Chloride 0.9% 1,000 ML IV STA ×2 (13:27→18:48)
[2017-01-18 13:28] LABS: ALB/GLOB RATIO 0.8 (1.1-1.8); BILIRUBIN,DIRECT 2.7 mg/dL (0.0-0.4); BILIRUBIN,TOTAL 3.9 mg/dL (0.2-1.3); CALCIUM 8.7 mg/dL (8.4-10.5); MAGNESIUM 1.7 mg/dL (1.7-2.2); PHOSPHOROUS 4.7 mg/dL (2.5-4.5); POTASSIUM 4.6 mmol/L (3.6-5.0); TOTAL PROTEIN 6.7 g/dL (5.8-8.3)
[2017-01-18 13:33] LABS: INR 1.78 (0.93-1.08); PARTIAL THROMBOPLASTIN TIME 42.9 Seconds (25.1-36.5)
[2017-01-18 13:40] LABS: TROPONIN I 0.11 ng/mL
--- NOTE | 2017-01-18 13:52 | CT ---
PROCEDURE: CT HEAD WITHOUT CONTRAST. HISTORY: alt ms COMPARISON: Comparison is made to the previous study dated 11/30/2016 TECHNIQUE: Axial computed tomography images were obtained through the head/brain without intravenous contrast. Radiation dose: Total exam DLP = 858.87 mGy-cm. This CT exam was performed using one or more of the following dose reduction techniques: Automated exposure control, adjustment of the mA and/or kV according to patient size, and/or use of iterative reconstruction technique. FINDINGS: HEMORRHAGE: No intracranial hemorrhage. BRAIN: Again seen are foci of encephalomalacia at the left frontal and left occipital parietal lobes. Atrophy and chronic microvascular white matter ischemic changes are again noted. VENTRICLES: Unremarkable. No hydrocephalus. CALVARIUM: Unremarkable. PARANASAL SINUSES: Unremarkable as visualized. No significant inflammatory changes. MASTOID AIR CELLS: Unremarkable as visualized. No inflammatory changes. OTHER FINDINGS: None. IMPRESSION: No evidence of acute intracranial hemorrhage mass effect or midline shift. Re- demonstration of foci of encephalomalacia at the left brain. Gbto-vj-iejiquly atrophy and moderate chronic microvascular white matter ischemic disease again noted.
[2017-01-18] MEDS ORDERED: Piperacillin/Tazobact 3.375 gm 100 ML IVPB STA (14:21)
--- NOTE | 2017-01-18 14:22 | RAD ---
HISTORY: alt ms, sob COMPARISON: Comparison is made to the previous study dated 11/24/2016 TECHNIQUE: Chest PA and lateral FINDINGS: LUNGS: Interval improvement in the previously seen moderate pulmonary vascular congestion. PLEURA: Right pleural effusion is again noted. CARDIOVASCULAR: Cardiomegaly is again seen. The patient is status post median sternotomy OSSEOUS STRUCTURES: No significant abnormalities. VISUALIZED UPPER ABDOMEN: Normal. OTHER FINDINGS: None. IMPRESSION: Interval improvement in the pulmonary congestion since the previous exam. Persistent cardiomegaly and right pleural effusion suggestive of CHF.
--- NOTE | 2017-01-18 14:29 | RAD ---
PROCEDURE: Bilateral Feet Radiographs. HISTORY: multiple ulcerations; r/o osteo COMPARISON: None. FINDINGS: BONES: Right Foot: No radiographic evidence of acute osteomyelitis or acute fracture. Left Foot: No evidence of acute fracture or acute osteomyelitis. JOINTS: Right Foot: Dygp-lm-hidvssbe arthritic degenerative changes Left Foot: Zyuc-wz-xqtrwpbs arthritic degenerative changes SOFT TISSUES: Right Foot: Heterogeneous density in the soft tissue without evidence of pneumatosis. Left Foot: Heterogeneous density in the soft tissue without evidence of pneumatosis. OTHER FINDINGS: None. IMPRESSION: No radiographic evidence of acute pathology in the feet.
[2017-01-18 14:35] LABS: BAND 5 % (0-2); NEUTROPHIL 91 % (50.0-70.0); PLATELET ESTIMATE LOW (NORMAL)
[2017-01-18 14:36] LABS: LARGE PLATELETS PRESENT; OVALOCYTES SLIGHT; TOXIC GRANULATION 1+
--- NOTE | 2017-01-18 16:18 | CT ---
PROCEDURE: CT Abdomen and Pelvis without intravenous contrast HISTORY: poor oral intake, sepsis, elevated Bili COMPARISON: None. TECHNIQUE: Axial and reformatted coronal and sagittal CT images of the abdomen and pelvis were obtained without IV or oral contrast administration.. Contrast Dose: 0 Radiation dose: Total exam DLP = 784.39 mGy-cm. This CT exam was performed using one or more of the following dose reduction techniques: Automated exposure control, adjustment of the mA and/or kV according to patient size, and/or use of iterative reconstruction technique. FINDINGS: LOWER THORAX: Bilateral moderate pleural effusions associated with partial atelectasis of the lower lobes. Airspace consolidation is noted at the lingula associated with mild bronchiectasis. Moderate cardiomegaly. LIVER: Unremarkable. No gross lesion or ductal dilatation. GALLBLADDER AND BILE DUCTS: Diffuse high attenuation noted in the gallbladder could be due to sludge/gallstones or accumulation of contrast in the gallbladder from prior enhanced study. No CT evidence of acute cholecystitis. PANCREAS: Small size pancreas is noted. The main pancreatic duct is not dilated. SPLEEN: Unremarkable. ADRENALS: Bilateral diffuse enlargement of the adrenal glands noted could be due to hyperplasia. KIDNEYS AND URETERS: Unremarkable. No hydronephrosis. No solid mass. VASCULATURE: Moderate atherosclerotic disease associated with diffuse calcifications seen in the abdominal aorta and common iliac arteries. There is mild aneurysmal changes of the distal abdominal aorta associated with slight intimal calcification displacement. BOWEL: There is diffuse thickening of the right colon wall suggestive of colitis. No evidence of high-grade bowel obstruction. APPENDIX: The appendix is not clearly visualized in this exam. PERITONEUM: There is a small amount of free fluid in the abdomen and pelvis. No evidence of free air. LYMPH NODES: Unremarkable. No enlarged lymph nodes. BLADDER: Mild urinary bladder wall thickening. REPRODUCTIVE: Cpwsff-vp-wlawftyccy enlarged prostate gland. BONES: No acute fracture. OTHER FINDINGS: Hxcm-wz-jgzktyic anasarca and diffuse soft tissue edema noted. IMPRESSION: Diffuse thickening of the right colon wall suggestive of colitis. Cardiomegaly and moderate bilateral pleural effusions associated with partial atelectasis of the lower lobes. Partially imaged airspace consolidation at the lingula associated with mild bronchiectasis. High attenuation noted in the gallbladder could represent a combination of sludge and gallstones versus accumulation of contrast from prior enhanced study. No evidence of cholecystitis. Small ascites and moderate anasarca. Diffuse enlargement of the adrenal glands suspicious for adrenal hyperplasia.
[2017-01-18 16:25] LABS: VENOUS BLOOD GAS BASE EXCESS -12.6 mmol/L (0.0-2.0)
[2017-01-18 16:27] LABS: VENOUS BLOOD PH 7.16 (7.32-7.43)
[2017-01-18 16:38] LABS: URINE BILIRUBIN SMALL (NEGATIVE); URINE BLOOD NEGATIVE (NEGATIVE); URINE GLUCOSE (UA) 100 mg/dL (NEGATIVE); URINE KETONE NEGATIVE (NEGATIVE); URINE LEUKOCYTE ESTERASE NEGATIVE Leu/uL (NEGATIVE); URINE PROTEIN 30 mg/dL (<30 mg/dL)
[2017-01-18 16:46] LABS: URINE APPEARANCE CLEAR (CLEAR); URINE COLOR DARK YELLOW (YELLOW)
[2017-01-18 16:48] LABS: URINE AMORPHOUS SEDIMENT SMALL; URINE BACTERIA SMALL (NEG); URINE RBC 0 - 2 /hpf (0-2); URINE WBC NEGATIVE /hpf (0-6)
[2017-01-18 17:10] LABS: ARTERIAL BLOOD GAS HCO3 11.2 mmol/L (21-28); ARTERIAL BLOOD GAS O2 CONTENT 19.6 ML/dl (15-23); ARTERIAL BLOOD GAS PH 7.26 (7.35-7.45); ARTERIAL BLOOD HGB O2 SAT 94.7 % (95.0-98.0); CARBOXYHEMOGLOBIN 2.7 % (0.5-1.5); HHB 1.7 % (0-5)
[2017-01-18] MEDS ORDERED: Sodium Chloride 0.9% 500 ML IV STA ×2 (18:08→21:33)
--- NOTE | 2017-01-18 18:38 | PCM.SEPTIC ---
Sepsis Progress Note - Reassessment Type Date of Evaluation: 01/18/17 Time of Evaluation: 18:23 Reassessment Type: Non-invasive reassessment - Non Invasive Reassessment Were the most recent vital sign reviewed: Yes Vital Sign (Latest): Temp Pulse Resp BP Pulse Ox 97.8 F 90 24 119/60 95 01/18/17 12:55 01/18/17 16:55 01/18/17 16:55 01/18/17 16:55 01/18/17 15:41 Cardiovascular: Yes: Regular Rate, Rhythm. No: Edema, Murmur, Irregularly Irregular Respiratory: Yes: Accessory Muscle Use, Respiratory Distress, Other (Tachypnea) . No: Crackles, Rales, Rhonchi, Wheezing Capillary Refill: Delayed Pulses: Decreased Radial, Decreased Dorsalis Pedis, Decreased Posterior Tibialis Skin: Dry, Pale, Jaundice, Other (cold extremities)
[2017-01-18 20:52] VITALS: BMI 22.8
[2017-01-18] MEDS ORDERED: Dextrose 50% SYRINGE Inj (50 ml) IVP ONE (21:35)
[2017-01-18] MEDS ORDERED: Piperacillin/Tazobact 2.25gm 2.25 GM/100 ML BAG IVPB SCH (22:00)
[2017-01-18] MEDS: Insulin Lispro (humaLOG) MEDIUM Coverage SC SCH (22:01)
[2017-01-18 22:07] LABS: ARTERIAL BLOOD GAS PH 7.29 (7.35-7.45)
--- NOTE | 2017-01-18 23:26 | CP.PCM.PCO ---
Physician Communication Note - Physician Communication Note Physician Communication Note: RIJ TLC placed under supervision of Dr. Freitas Procedures - Central Line Placement Jugular Internal Right CVP Consent: verbal consent (telephone from son (Ze WHITE)) CVP Time Out Performed: Yes Pt. Placed on Monitor Pule Ox: Yes MD Prep: gloves Central Line Prep: Chlorhexidine Local Anesthesia Used: Lidocaine 1% Amount of Anesthesia Used (mls): 5 Ultrasound Used for Placement: Yes Central Line Lumen Inserted: triple Post Procedure: All Ports Aspirated, Flushed, Capped Post Procedure X-Ray: No Pneumothorax Seen Patient Tolerated Procedure: Well Complications: None (Done under supervision of Dr. Freitas)
[2017-01-18] MEDS: NOREPINEPHRINE BIT/0.9 % NACL 4 MG/250 ML BAG IV PRN (23:47)
--- NOTE | 2017-01-19 01:14 | CON ---
DATE: 01/18/2017 HUMAN RESOURCES COMPENSATION ANALYST CONSULT REQUESTING PHYSICIAN: Dr. Maldonado. CHIEF COMPLAINT: The patient presented with altered mental status felt to be septic. HISTORY OF PRESENT ILLNESS: Mr. Ze Larkin is a 76-year-old male that presented lethargic to the Emergency Room, has a history of CABG and coronary artery disease as well as congestive heart failure and diabetes. The patient's family stated that he had become lethargic over the last 24 hours with a significant weakness and not eating and felt that he needed to come to the Emergency Room. He did have some shortness of breath as well, but no nausea or vomiting. No diarrhea. No abdominal pain or chest pain. No significant coughing. PAST MEDICAL HISTORY: As above. ALLERGIES: HE HAS NO KNOWN ALLERGIES. CURRENT MEDICATIONS: Can be evaluated as per the nurses' intake form. SOCIAL HISTORY: He is a former smoker. No ETOH abuse. No drug abuse. FAMILY HISTORY: Noncontributory. REVIEW OF SYSTEMS: Unable to assess because of the patient is lethargic and confused. PHYSICAL EXAMINATION: VITAL SIGNS: Note that, his temperature is 98, his pulse is 84, respirations are 23, and BP is 115/62, O2 saturation is 94%. HEENT: Head is atraumatic, normocephalic. Eyes; reactive to light. Ears, nose, and throat seemed to be within normal limits. NECK: Supple. No JVD. No thyroid enlargement. No lymph nodes. HEART: Regular rate and rhythm. Normal S1, S2. LUNGS: Reveals decreased breath sounds at the basis with occasional rhonchi. ABDOMEN: Soft. Decreased bowel sounds. GENITALIA: Deferred. RECTAL: Deferred. MUSCULOSKELETAL: No joint deformities. EXTREMITIES: Reveal ulcerations of both lower extremities and feet. NEUROLOGICAL: The patient is lethargic and confused. LABORATORY DATA: As far as the laboratories; his white count is 22, hemoglobin is 17.0, hematocrit 48.1 and platelets of 56,000. His sodium is 134, potassium 4.6, chloride 100, CO2 of 20 with a BUN of 47, creatinine of 1.9 and glucose of 63. The patient's ABGs reveals pH of 7.26, PCO2 of 25, PO2 of 93. The patient's foot x-rays reveal no obvious abnormality. A CT of the head reveals no acute intracranial hemorrhage mass or mass effect, but there is some itkg-pb-wrhezagw atrophy and moderate chronic microvascular white matter ischemic disease again noted. His chest x-ray reveals interval improvement of the pulmonary congestion since the previous exam, persistent cardiomegaly and right pleural effusion suggestive of CHF. A CT of the abdomen and pelvic reveals that there is bilateral moderate pleural effusions associated with partial atelectasis of the lower lobes. There is some air space consolidation noted at the lingual region and some mild bronchiectasis. Mild cardiomegaly. Note that the patient does have some anasarca as well as the small amount of ascites and diffuse thickening of the right colon suggestive of colitis. IMPRESSION: The patient has sepsis with increase lactic acid and metabolic acidosis. He has altered mental status and history of cardiomyopathy noted to have some congestive heart failure with bilateral pleural effusions and lower lobe atelectasis as well as possible lingular pneumonia. The patient has acute renal insufficiency as well as lower extremity ulcerations. It is also noted that he has a colitis, thrombocytopenia, diabetes, and has a history of cerebrovascular accident, coronary artery disease, and coronary artery bypass graft. PLAN: We will continue with IV fluids and we will contain bicarbonate to help correct his metabolic acidosis. The patient is getting O2 via nasal cannula. We will monitor his electrolytes closely and correct as needed. Note that, he has been admitted to the Intensive Care Unit and we will be started on Protonix and given Tylenol for p.r.n. temperature and pain. The patient is getting vancomycin as well as Zosyn as far as antibiotics are concerned and we will follow his chest x-ray in order to blood gas closely. The patient has a consult with Infectious Disease as well as a Cardiology and we will continue to treat aggressively along with the other consultants and the primary care doctor. Luisito Sylvester MD
[2017-01-19] MEDS: Meropenem 1 GM in Dextrose 5% In Water 100 ML IVPB SCH ×2 (01:45→21:41)
[2017-01-19 02:39] LABS: VENOUS BLOOD GAS BASE EXCESS -8.7 mmol/L (0.0-2.0); VENOUS BLOOD PH 7.26 (7.32-7.43)
[2017-01-19 06:16] LABS: VENOUS BLOOD GAS BASE EXCESS -8.7 mmol/L (0.0-2.0); VENOUS BLOOD PH 7.26 (7.32-7.43)
[2017-01-19 06:19] LABS: BASO # 0.03 K/mm3 (0.0-2.0); BASO % 0.1 % (0.0-3.0); GRAN % 96.3 % (50.0-68.0); HEMATOCRIT 43.7 % (42.0-52.0); LYMPH # 0.5 (1.2-3.4); LYMPH % 1.5 % (22.0-35.0); MEAN CELL VOLUME 90.3 fl (80.0-105.0); MEAN CORPUSCULAR HEMOGLOBIN 31.8 pg (25.0-35.0); MEAN CORPUSCULAR HGB CONC 35.2 g/dl (31.0-37.0); MONO # 0.7 (0.1-0.6); MONO % 2.1 % (1.0-6.0); RED CELL DISTRIBUTION WIDTH 18.2 % (11.5-14.5)
[2017-01-19 06:28] LABS: WHITE BLOOD COUNT 34.2 10^3/ul (4.5-11.0)
[2017-01-19 06:29] LABS: PLATELET COUNT 40 10^3/uL (120.0-450.0)
[2017-01-19 06:30] LABS: INR 2.2 (0.93-1.08)
[2017-01-19 06:41] LABS: ALB/GLOB RATIO 0.7 (1.1-1.8); BILIRUBIN,TOTAL 3.3 mg/dL (0.2-1.3); MAGNESIUM 1.5 mg/dL (1.7-2.2); PHOSPHOROUS 4.6 mg/dL (2.5-4.5); TOTAL PROTEIN 5.4 g/dL (5.8-8.3)
[2017-01-19] MEDS: Insulin Lispro (humaLOG) MEDIUM Coverage SC SCH ×4 (07:34→21:41)
--- NOTE | 2017-01-19 09:08 | CARD ---
APPROVED REPORT EKG Measurement Heart [id number] 206P [id number] <Conclusion> Sinus rhythm with premature supraventricular complexes Inferior infarct, age undetermined Anterolateral infarct, age undetermined Abnormal ECG
[2017-01-19] MEDS: NOREPINEPHRINE BIT/0.9 % NACL 4 MG/250 ML BAG IV PRN ×2 (09:16→17:23)
[2017-01-19] MEDS ORDERED: Albumin Human 25% (12.5 gm/50 ml) IV ONE ×4 (09:46→10:30)
[2017-01-19] MEDS ORDERED: Magnesium Sulfate 2 GM in Sodium Chloride 0.9% 100 ML IVPB ONE (09:48)
[2017-01-19] MEDS ORDERED: Vancomycin 1gm in NS 250ml 1 GM/250 ML BAG IVPB SCH (10:00)
--- NOTE | 2017-01-19 10:17 | CP.PCM.CON ---
History of Present Illness - History of Present Illness History of Present Illness: 76 year old male with PMH of CAD S/P CABG, chronic CHF, DM, history of CVA, HTN was brought in to [facility] because of generalized weakness and anorexia. Patient is a poor historian and HPI is taken from records and from ICU staff. The patient had some shortness of breath as well. The patient is somewhat lethargic today as well, but denies chills, no fevers, no vomiting, no nausea, no abdominal pain , no diarrhea, no dysuria. CT A/P done in the ED showed right sided colitis. Infectious Diseases consult is requested to further evaluate and manage. Review of Systems - Review of Systems All systems: reviewed and no additional remarkable complaints except (as per HPI ) Past Patient History - Infectious Disease Hx of Infectious Diseases: None - Tetanus Immunizations Tetanus Immunization: >10 years Ago - Past Social History Smoking Status: Former Smoker - CARDIAC Hx Cardiac Disorders: Yes (CAD s/p bypass x 3) Hx Congestive Heart Failure: Yes Hx Hypertension: Yes - NEUROLOGICAL HX Cerebrovascular Accident: Yes - HEENT Hx HEENT Problems: Yes (visual changes) - RENAL Hx Chronic Kidney Disease: No - ENDOCRINE/METABOLIC Hx Diabetes Mellitus Type 2: Yes - INTEGUMENTARY Hx Dermatological Problems: No Other/Comment: elbow abrasion,rt great toe with black eschar and dressed,eschar on top of toes left foot - MUSCULOSKELETAL/RHEUMATOLOGICAL Hx Falls: Yes - PSYCHIATRIC Hx Substance Use: No - SURGICAL HISTORY Hx Open Heart Surgery: Yes - ANESTHESIA Hx Anesthesia: Yes Hx Anesthesia Reactions: No Hx Malignant Hyperthermia: No Meds Allergies/Adverse Reactions: Allergies Allergy/AdvReac Type Severity Reaction Status Date / Time No Known Allergies Allergy Verified 01/18/17 12:28 - Medications Medications: Current Medications Acetaminophen (Tylenol 325mg Tab) 650 mg PO Q4H PRN PRN Reason: Fever >100.4 F Acetaminophen (Tylenol 325mg Tab) 650 mg PO Q4 PRN PRN Reason: Pain, moderate (4-7) Heparin Sodium (Porcine) (Heparin) 5,000 units SC Q12 MAURICIO PRN Reason: Protocol Last Admin: 01/18/17 22:01 Dose: 5,000 units Sodium Bicarbonate 75 meq/ (Sodium Chloride) 1,075 mls @ 50 mls/hr IV .[id number] [facility] Last Admin: 01/18/17 18:52 Dose: 50 mls/hr Vancomycin HCl (Vancomycin 1gm) 1 gm in 250 mls @ 167 mls/hr IVPB DAILY MAURICIO PRN Reason: Protocol Piperacillin Sod/Tazobactam Sod (Zosyn 2.25 Gm In 0.9% 100 Ml) 2.25 gm in 100 mls @ 100 mls/hr IVPB Q8 MAURICIO PRN Reason: Protocol Stop: 01/19/17 06:59 Last Admin: 01/18/17 22:02 Dose: 100 mls/hr NOREPINEPHRINE BIT/0.9 % NACL (Levophed 4 Mg/ 250 Ml Ns Premixed) 4 mg in 250 mls @ 15 mls/hr IV .[id number] PRN; Protocol; 4 MCG/MIN PRN Reason: TITRATE PER MD ORDER Last Titration: 01/18/17 23:53 Dose: 6 mcg/min, 22.5 mls/hr Insulin Human Lispro (Humalog Med) 0 units SC ACHS MAURICIO PRN Reason: Protocol Last Admin: 01/18/17 22:01 Dose: Not Given Pantoprazole Sodium (Protonix Inj) 40 mg IVP DAILY [facility] Last Admin: 01/18/17 18:52 Dose: 40 mg Physical Exam - Constitutional Appears: Chronically Ill - Head Exam Head Exam: NORMAL INSPECTION - ENT Exam ENT Exam: Mucous Membranes Moist - Neck Exam Neck exam: Negative for: Lymphadenopathy, Meningismus - Respiratory Exam Respiratory Exam: Decreased Breath Sounds - Cardiovascular Exam Cardiovascular Exam: +S1, +S2 - GI/Abdominal Exam GI & Abdominal Exam: Soft. absent: Tenderness Results - Vital Signs Recent Vital Signs: Last Vital Signs Temp 98 F 01/18/17 20:36 Pulse 85 01/18/17 20:36 Resp 20 01/18/17 20:36 BP 80/32 L 01/18/17 20:36 Pulse Ox 95 01/18/17 15:41 - Labs Result Diagrams: 01/19/17 06:00 01/19/17 06:00 Labs: Laboratory Results - last 24 hr 01/18/17 01/18/17 01/18/17 16:00 16:00 16:17 pCO2 pO2 55 HCO3 ABG pH ABG Total CO2 ABG O2 Saturation ABG O2 Content ABG Base Excess ABG Hemoglobin ABG Carboxyhemoglobin POC ABG HHb (Measured) ABG Methemoglobin ABG O2 Capacity ABG Potassium VBG pH 7.16 L* VBG pCO2 44.0 VBG HCO3 15.7 L VBG Total CO2 17.1 L VBG O2 Sat (Calc) 85.6 H VBG Base Excess -12.6 L VBG Potassium 4.7 Hgb O2 Saturation Sodium 133.0 Chloride 100.0 Glucose 96 Lactate 6.3 H* FiO2 21.0 POC Glucose (mg/dL) 104 Arterial Blood Potassium Venous Blood Potassium 4.7 Urine Color Dark yellow Urine Appearance Clear Urine pH 6.0 Ur Specific [place] 1.020 Urine Protein 30 H Urine Glucose (UA) 100 H Urine Ketones Negative Urine Blood Negative Urine Nitrate Positive H Urine Bilirubin Small H Urine Urobilinogen 1.0 H Ur Leukocyte Esterase Negative Urine RBC 0 - 2 Urine WBC Negative Amorphous Sediment Small Urine Bacteria Small 01/18/17 01/18/17 17:00 22:00 pCO2 25 L 25 L pO2 93.0 77.0 L HCO3 11.2 L 12.0 L ABG pH 7.26 L 7.29 L ABG Total CO2 12.0 L 12.8 L ABG O2 Saturation 98.2 H 97.4 ABG O2 Content 19.6 ABG Base Excess -14.0 L -12.8 L ABG Hemoglobin 14.7 ABG Carboxyhemoglobin 2.7 H POC ABG HHb (Measured) 1.7 ABG Methemoglobin 1.0 ABG O2 Capacity 20.0 ABG Potassium 2.8 L VBG pH VBG pCO2 VBG HCO3 VBG Total CO2 VBG O2 Sat (Calc) VBG Base Excess VBG Potassium Hgb O2 Saturation 94.7 L Sodium 138.0 Chloride 111.0 H Glucose 141 H Lactate 3.7 H FiO2 32.0 32.0 POC Glucose (mg/dL) Arterial Blood Potassium 2.8 L Venous Blood Potassium Urine Color Urine Appearance Urine pH Ur Specific [place] Urine Protein Urine Glucose (UA) Urine Ketones Urine Blood Urine Nitrate Urine Bilirubin Urine Urobilinogen Ur Leukocyte Esterase Urine RBC Urine WBC Amorphous Sediment Urine Bacteria Assessment & Plan - Assessment and Plan (Free Text) Plan: Assessment Severe sepsis with acute on chronic renal failure due to right sided colitis, etiology to be determined CAD S/P CABG chronic CHF DM history of CVA HTN Plan Started patient on Merrem and given a dose of IV Vanco pending stool cx, blood cx; will check urine as well; reviewed CT A/P follow up GI recommendations will also check stool for C. diff.; empirically start PO Vancomycin and IV Flagyl
--- NOTE | 2017-01-19 10:25 | RAD ---
HISTORY: RIJ TLC position COMPARISON: Comparison is made to previous same-day exam FINDINGS: LUNGS: Re- demonstration of homogeneous opacities at the bilateral mid and lower lungs likely represent atelectasis due to pleural effusion. Underlying infiltrate is not totally excluded. PLEURA: Moderate to large right pleural effusion and possible small left pleural effusion. CARDIOVASCULAR: Cardiomegaly is again noted. Interval insertion of right jugular central line seen at appropriate position with the tip is likely at the distal SVC. OSSEOUS STRUCTURES: No significant abnormalities. VISUALIZED UPPER ABDOMEN: Normal. OTHER FINDINGS: None. IMPRESSION: Interval insertion of right jugular is central line seen at appropriate position. Re- demonstration of cardiomegaly and moderate to large right pleural effusion.
[2017-01-19] MEDS: metroNIDAZOLE IV 500 mg/100 ml 500 MG/100 ML BAG IVPB SCH ×2 (14:42→21:41)
[2017-01-19] MEDS: Vancomycin 25 MG/ML PO SCH ×3 (14:53→21:26)
[2017-01-19] MEDS ORDERED: Sodium Bicarbonate 8.4% 75 MEQ in Dextrose 5%/0.45% NS 1,000 ML IV SCH (17:30)
--- NOTE | 2017-01-19 18:31 | HP ---
DATE: 01/19/2017 HISTORY OF PRESENT ILLNESS: The patient is a 76-year-old male admitted through the Emergency Department on 01/18/2017 with increasing lethargy and confusion and decreased p.o. intake. The patient was noted to have a markedly elevated white blood cell count and lactic acidosis and is admitted to the intensive care unit for further evaluation and management for possible sepsis. The patient has been seen in consultation by Dr. Caro from Infectious Disease and he has been started on oral vancomycin as empiric treatment for possible C. difficile colitis after CT showed possible enterocolitis. The patient has also been started on IV Flagyl and meropenem. PAST MEDICAL HISTORY: Includes coronary artery disease, status post CABG, CHF and type 2 diabetes mellitus. The patient also has a history of peripheral vascular disease with cellulitis of the lower extremities and necrotic ulcers of the great toes and second toes bilaterally. CURRENT MEDICATIONS: Include Protonix 40 mg IV daily, meropenem 1 g IV q.12 hours, Flagyl 500 mg IV q.8 hours, heparin 5000 units subcu q.12 hours, and vancomycin 125 mg p.o. q.6 hours. ALLERGIES: THE PATIENT HAS NO KNOWN ALLERGIES. SOCIAL HISTORY: The patient has a history of smoking with no alcohol or drug use in the past. FAMILY HISTORY: Noncontributory. REVIEW OF SYSTEMS: The patient denies any chest pain or shortness of breath. There is no nausea, no vomiting, no diarrhea. There is poor oral intake, no jaundice, no rash, no fever, no chills. PHYSICAL EXAMINATION: GENERAL: The patient is a well-developed cachectic male, in no acute distress. He is somewhat lethargic and confused. VITAL SIGNS: Blood pressure 95/61, temperature 97 axillary, respiratory rate 24, pulse 86. HEENT: Head is normocephalic and atraumatic. Pupils are equal, round, and reactive to light. Extraocular movements are intact. NECK: Supple. No thyromegaly. No carotid bruit. No nuchal rigidity. LUNGS: Show bibasilar rales and scattered rhonchi bilaterally. HEART: Regular rate and rhythm with a grade 2/6 systolic murmur. There is jugular venous distention and hepatojugular reflex. There is a healed sternotomy scar status post CABG. ABDOMEN: Soft, nontender. Bowel sounds are normoactive. EXTREMITIES: Positive for pitting edema for the ankles bilaterally with some erythema and warmth bilaterally. There are necrotic eschars involving the great toes and second toes bilaterally with decreased dorsalis pedis and posterior tibial pulses bilaterally. NEUROLOGICAL: The patient is slightly lethargic and confused without focal sensory or motor deficits. LABORATORY DATA: WBC is 34.2, hemoglobin 15.4, hematocrit 43.7, platelet count is 40,000. Sodium 134, potassium 4.6, chloride 100, CO2 of 20, BUN 47, creatinine 1.9. BNP is elevated at 188,000. Troponin is 0.11. Total bilirubin is slightly elevated at 3.9, direct bilirubin 2.7, phosphate 4.7. IMPRESSION: 1. Leukocytosis, rule out sepsis. 2. Peripheral vascular disease with gangrenous changes of the feet bilaterally. 3. Atherosclerotic cardiovascular disease, status post coronary artery bypass graft. 4. Congestive heart failure. 5. Chronic kidney disease. 6. 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 7. Type 2 diabetes. PLAN: The patient is admitted to the intensive care unit. He has been seen in consultation by Dr. Caro from Infectious Disease. He also had a critical consultation from Dr. Sylvester. He has been started on empiric IV antibiotics. Cultures are pending. The patient is DNR/DNI at family request. Prognosis is very poor. We will obtain cardiology consult from Dr. Malave/Nahun. Morgan Maldonado JD/
[2017-01-19 20:13] VITALS: TEMP 97.5
[2017-01-20] MEDS: metroNIDAZOLE IV 500 mg/100 ml 500 MG/100 ML BAG IVPB SCH (07:00)
[2017-01-20 07:19] LABS: BASO # 0.02 K/mm3 (0.0-2.0); BASO % 0.1 % (0.0-3.0); GRAN # 34.65 (1.4-6.5); GRAN % 96.3 % (50.0-68.0); HEMATOCRIT 46.9 % (42.0-52.0); LYMPH # 0.6 (1.2-3.4); LYMPH % 1.7 % (22.0-35.0); MEAN CELL VOLUME 95.9 fl (80.0-105.0); MEAN CORPUSCULAR HEMOGLOBIN 31.3 pg (25.0-35.0); MEAN CORPUSCULAR HGB CONC 32.6 g/dl (31.0-37.0); MONO # 0.7 (0.1-0.6); MONO % 1.9 % (1.0-6.0); RED CELL DISTRIBUTION WIDTH 19.4 % (11.5-14.5)
[2017-01-20 07:34] LABS: ALB/GLOB RATIO 0.8 (1.1-1.8); BILIRUBIN,TOTAL 4.3 mg/dL (0.2-1.3); CALCIUM 7.7 mg/dL (8.4-10.5); PHOSPHOROUS 8.5 mg/dL (2.5-4.5); POTASSIUM 4.8 mmol/L (3.6-5.0); TOTAL PROTEIN 5.5 g/dL (5.8-8.3)
[2017-01-20 07:45] LABS: PLATELET COUNT 18 10^3/uL (120.0-450.0)
[2017-01-20 08:22] LABS: PLATELET ESTIMATE LOW (NORMAL)
--- NOTE | 2017-01-20 08:25 | CP.PCM.PRO ---
Pronouncement of Note - Clinical Findings Physical Exam: No Response Verbal/Painful Stimuli, Absent Peripheral Pulses{ Carotid & Femoral}, Absent Heart & Breath Sounds, Pupils Fixed & Dilated - Pronouncement Time Time of Pronouncement of : 08:19 Additional Comments: Called to evaluate a patient. Pupils were noted to be dilated and unresponsive to light. No heart or lung sounds were noted on auscultation. Patient had no response to noxious stimuli. Asystole noted on monitor. The pt was pronounced on 01/20/2017 at 0819. - Notifications Pronouncement Notifications: Family Notified, Atending Notified Medical Insurance Coder Notified: No - Autopsy Autopsy Requested: No
[2017-01-20 08:49] VITALS: BP 75/49; PULSE 55; RESP 11; O2SAT 98
--- NOTE | 2017-01-20 09:15 | CON ---
DATE: 01/19/2017 REASON FOR CONSULTATION: Hypotension, shock, possible septic shock, coronary artery disease, and CABG. BRIEF CLINICAL HISTORY: The patient is a 76-year-old male with past medical history of diabetes, hypertension, hyperlipidemia, coronary artery disease, status post CABG, admitted with altered mental status and brought by the family. The patient was found to be very weak and lethargic. The patient was found to be severe hypotension, possibly septic and septic shock, on Levophed, currently in ICU. Denies any chest pain. Denies any shortness of breath. Denies any palpitations. Denies any abdominal pain. Denies any nausea, vomiting, or diarrhea. PAST MEDICAL HISTORY: Significant for coronary artery disease, status post CABG, bypass surgery, ischemic cardiomyopathy, hypertension, diabetes, hyperlipidemia, coronary artery bypass surgery in 2001, three vessels, and history of CVA with left-sided weakness. PAST SURGICAL HISTORY: Significant for coronary artery bypass surgery, three vessel bypass in 2001, history of cataract surgery, and history of BPH as well. ALLERGIES: NO KNOWN DRUG ALLERGY. CURRENT MEDICATIONS: The patient was taking aspirin, Plavix, and potassium at home. PREVIOUS CARDIAC WORKUP: The patient has a coronary artery bypass surgery in 2001, three vessels bypass, TAYLOR to LAD, saphenous vein graft to RCA, left radial to obtuse marginal 1 branch of the circumflex, and history of cataract surgery. The patient had echocardiography on 09/03/2016 that shows ejection fraction 15% to 20%, mild aortic regurgitation, severe valvular aortic stenosis 0.4 cm2, [id number] mitral regurgitation, zsdkhwwv-wh-forala tricuspid regurgitation, systolic pressure 74, history of bicuspid aortic valve, aortic stenosis as an AR, and history of cardiomyopathy. SOCIAL HISTORY: Denies any history of alcohol abuse. CURRENT MEDICATIONS: The patient is taking as mentioned potassium chloride, furosemide, and clopidogrel. REVIEW OF SYSTEMS: As per HPI. The patient has mild dementia and unable to give more details. PHYSICAL EXAMINATION: VITAL SIGNS: Temperature afebrile, heart rate 86, and blood pressure 95/61. HEENT: PERRLA. Extraocular muscles intact. NECK: Supple. No carotid bruits or thyromegaly. CHEST: Clear to auscultation. HEART: S1 and S2 regular. ABDOMEN: Soft. EXTREMITIES: Clubbing and cyanosis negative. LABORATORY DATA: Blood workup as follows; WBC 34.2, hemoglobin 18.4, hematocrit 43.7, and platelet count 40. Chemistry shows sodium 135, potassium 4, chloride 104, carbon dioxide 19, anion gap of 16, BUN 50, creatinine 1.9, BNP 188,000, albumin 2.2, and troponin 0.11. IMPRESSION: Decompensated congestive heart failure, sepsis, septic shock, cardiomyopathy, renal insufficiency, acute kidney injury, hypotension, protein-calorie malnutrition, which was not present on admission yesterday, severe aortic stenosis, ejection fraction 15% to 20%, coronary artery disease, coronary artery bypass graft in 2001 with left internal mammary artery to left anterior descending, saphenous vein graft to right coronary artery and left atrial to obtuse marginal 1, admitted with sepsis and septic shock. RECOMMENDATIONS: Continue gentle hydration. Continue Levophed. When the patient becomes normotensive, we will consider to start low dose Primacor for now. The patient is hypotensive. We will continue vasopressors and continue IV fluid. We will not give anticoagulation because the patient has severe thrombocytopenia and high risk of increased bleeding. Overall, the patient's condition is critical. Long-term prognosis is guarded. We will follow with you. We will give two doses of IV albumin to increase plasma and cardiac pressure. Code status is DNR. We will supplement magnesium. Thank you Dr. Maldonado for providing the opportunity in taking care of the patient, Ze Larkin. Moise Garnica MD
--- NOTE | 2017-01-20 09:49 | PN ---
ELECTRONIC SYSTEM ENGINEER NOTE DATE: 01/19/2017 SUBJECTIVE: The patient is resting in bed, still fairly lethargic, but responsive and response appropriately. The patient at this time on Levophed to support his blood pressure, but is stable from a respiratory standpoint. No significant cough or congestion. No labored breathing. No complaints of chest pain or abdominal pain. No diarrhea. PHYSICAL EXAMINATION: VITAL SIGNS: Temperature is 97.4, pulse is 86, respirations are 24, BP is 95/61, and O2 sat is 100%. HEENT: Head is atraumatic and normocephalic. Eyes; reactive to light. Ears, nose, and throat seems to be within normal limits. NECK: Supple. No JVD. No thyroid enlargement. No lymph nodes. HEART: Regular rate and rhythm. Normal S1 and S2. LUNGS: Reveal decreased breath sounds at the bases. ABDOMEN: Soft. Decreased bowel sounds. GENITALIA AND RECTAL: Deferred. MUSCULOSKELETAL: No joint deformities. EXTREMITIES: Reveal no significant edema. NEUROLOGIC: He seems to be grossly intact, but lethargic. LABORATORY DATA: As far as his laboratory is concerned; his white count is 34.2, hemoglobin is 15.4, hematocrit is 43.7 with platelets of 40,000. The patient has a venous blood gas, which is pH of 7.26, pCO2 of 40, and pO2 of 36. His sodium is 135, potassium 4.0, chloride 104, CO2 of 19 with a BUN of 50, creatinine of 1.9, and a glucose of 117. As far as x-rays, results are pending. IMPRESSION: Reveals that this patient has sepsis with lactic acid and hypotension requiring Levophed. He has a cardiomyopathy with a history of congestive heart failure and is noted to have bilateral pleural effusions and lower lobe atelectasis with lingular pneumonia. The patient has acute renal insufficiency and lower extremity ulceration. He also is noted to have colitis, thrombocytopenia, diabetes, history of cerebrovascular accident, coronary artery disease, and coronary artery bypass. PLAN: We will continue with IV fluids. The patient is getting Levophed to support his blood pressure. Also, he is getting Protonix as well as Tylenol p.r.n. The patient is on antibiotics of vancomycin and Zosyn and we will continue to follow closely and treat aggressively along with the other consultants and the primary care doctor. Luisito Sylvester MD [facility] # [id number]
--- NOTE | 2017-01-20 12:09 | PN ---
DATE: 01/20/2017 REASON FOR CONSULTATION AND FOLLOWUP: Hypotension, shock, possible septic shock, coronary artery disease, and coronary artery bypass graft. SUBJECTIVE: The patient is very lethargic, barely arousable. PHYSICAL EXAMINATION GENERAL: Not in apparent distress, but very weak, lethargic. VITAL SIGNS: As follows: Temperature afebrile 97, heart rate , and blood pressure 90/80. HEENT: PERRLA intact. NECK: Supple. No carotid bruits or thyromegaly. CHEST: Clear to auscultation. HEART: S1 and S2 regular. ABDOMEN: Soft. EXTREMITIES: Clubbing and cyanosis negative. LABORATORY DATA: Blood workup as follows: WBC 36.0, hemoglobin 15.8, hematocrit 46.9, and platelet count 18. Chemistry shows sodium 140, potassium 4.0, chloride 105, carbon dioxide 17, anion gap of 23, BUN 52, creatinine 2.4. AST 604, ALT 159. IMPRESSION: Sepsis, septic shock, multiorgan dysfunction, acute kidney injury, acute renal failure, severe thrombocytopenia, leukocytosis, coronary artery disease, coronary artery bypass graft, very weak and lethargic, hypotension with septic shock. Overall, the patient's condition is critical. Long-term prognosis is guarded. Code status is DNR. Severe aortic stenosis, severe ejection fraction 15% to 20%, valve area 0.4 cm2. Continue supportive care. Code status is DNR. Thank you Dr. Maldonado for providing us the opportunity in taking care of the patient, Trae Kunz. We will continue supportive care. Moise Garnica MD
--- NOTE | 2017-01-21 08:13 | DS ---
HISTORY OF PRESENT ILLNESS: The patient is a 76-year-old male, admitted on 01/18/2017 with progressive lethargy and confusion and decreased p.o. intake. The patient was admitted to the intensive care unit with the presumptive diagnosis of rule out sepsis. Blood and urine cultures have been negative. The patient was hypotensive and was started on norepinephrine IV. He was also seen and in consultation by Infectious Disease, Dr. Caro and Cardiology Dr. Garnica as well as Critical Care Dr. Sylvester. The patient was DNR/DNI at family request. The patient went into cardiac arrest this a.m. and was pronounced at 08:19 a.m., the family was notified. IMPRESSION: 1. Congestive heart failure. 2. Coronary artery disease, status post coronary artery bypass grafting. 3. Chronic kidney disease. 4. Dementia probably mixed vascular. Morgan Maldonado JD/ B[facility]
== END 2017-01-20 08:18 | DRG 871 ==
LOC: ED 12:20 → ERH 15:25 → CCU 18:13
PROVIDERS: ADMIT Internal Medicine; ATTEND Internal Medicine
PROC: 05HM33Z Insertion of Infusion Device into Right Internal Jugular Vein, Percutaneous Approach (ICD-10-PCS; principal; 2017-01-18)
PROC: B543ZZA Ultrasonography of Right Jugular Veins, Guidance (ICD-10-PCS; 2017-01-18)
DX: A41.9 Sepsis, unspecified organism (principal); R65.21 Severe sepsis with septic shock; N17.9 Acute kidney failure, unspecified; J18.9 Pneumonia, unspecified organism; I13.0 Hypertensive heart and chronic kidney disease with heart failure and stage 1 through stage 4 chronic kidney disease, or unspecified chronic kidney disease; E11.52 Type 2 diabetes mellitus with diabetic peripheral angiopathy with gangrene; E87.2 Acidosis; E46 Unspecified protein-calorie malnutrition; J98.11 Atelectasis; I50.9 Heart failure, unspecified; D69.6 Thrombocytopenia, unspecified; E11.22 Type 2 diabetes mellitus with diabetic chronic kidney disease; N18.9 Chronic kidney disease, unspecified; E11.621 Type 2 diabetes mellitus with foot ulcer; L97.529 Non-pressure chronic ulcer of other part of left foot with unspecified severity; Z66 Do not resuscitate; I25.10 Atherosclerotic heart disease of native coronary artery without angina pectoris; I25.5 Ischemic cardiomyopathy; K52.9 Noninfective gastroenteritis and colitis, unspecified; I35.0 Nonrheumatic aortic (valve) stenosis; Z68.22 Body mass index [BMI] 22.0-22.9, adult; Z87.891 Personal history of nicotine dependence; Z95.1 Presence of aortocoronary bypass graft